=== PATIENT | female | born 1970 | race Caucasian/White ===

== ENCOUNTER 2020-05-08 15:53 | Outpatient (REF) | payer OTHER, BC, SELFPAY ==
--- NOTE | 2020-05-08 16:00 | XR_ITS ---
EXAMINATION: XR KNEE, RIGHT CLINICAL INFORMATION: Injury right knee. COMPARISON: None TECHNIQUE: Four views of the right knee. FINDINGS: There is minimal loss of medial compartment joint space. The lateral and patellofemoral compartment joint space is preserved. There is no visible acute fracture, dislocation or bony erosive changes. The soft tissues are normal. XR/XR knee RT 4V IMPRESSION: Suspect early mild degenerative changes medial compartment. No acute fracture, dislocation or abnormal joint effusion seen.
== END 2020-05-08 15:54 | disposition home or self-care (01) ==
LOC: HO.HMGCX 15:53
PROVIDERS: PCP Internal Medicine; Visit Provider Nurse Practitioner Family
DX: S89.90XA Unspecified injury of unspecified lower leg, initial encounter (principal)
CPT/HCPCS: 73564

== ENCOUNTER 2020-09-07 09:35 | Outpatient (REF) | payer BC, SELFPAY ==
[2020-09-07 12:15] LABS: TSH reflex Free T4 1.69 uIU/mL (0.32-4.0)
[2020-09-07 12:19] LABS: Alanine Aminotransferase 16 U/L (0-31); Albumin Level 3.9 g/dL (3.5-5.0); Alkaline Phosphatase 71 U/L (39-117); Anion Gap 11 (12-20); Aspartate Amino Transferase 14 U/L (5-31); Bilirubin Total 0.5 mg/dL (0.0-1.0); Blood Urea Nitrogen 16 mg/dL (9-16); Calcium 9.4 mg/dL (8.4-10.2); Carbon Dioxide 26 mmol/L (22-29); Chloride 105 mmol/L (96-108); Estimated Glomerular Filt Rate > 60; Glucose Random 91 mg/dL (60-115); Potassium 4.2 mmol/L (3.3-5.1); Sodium 138 mmol/L (135-145); Total Protein 6.9 g/dL (6.5-8.0)
== END 2020-09-07 09:36 | disposition home or self-care (01) ==
LOC: HO.HMGCLDS 09:35
PROVIDERS: PCP Internal Medicine; Visit Provider Internal Medicine
DX: E03.9 Hypothyroidism, unspecified (principal); E66.01 Morbid (severe) obesity due to excess calories; G44.89 Other headache syndrome; I10 Essential (primary) hypertension; Z91.09 Other allergy status, other than to drugs and biological substances
CPT/HCPCS: 36415; 80053; 84443

== ENCOUNTER 2020-10-03 11:52 | Outpatient (REF) | payer BC, SELFPAY ==
--- NOTE | ~2020-10-03 | MM_ITS ---
EXAMINATION: MM SCREENING DIGITAL BREAST TOMOSYNTHESIS, BILATERAL CLINICAL INFORMATION: Screening. Asymptomatic. The lifetime risk of breast cancer based on the Tyrer-Cuzick Model is 11.9%. COMPARISON: Mammography: June 13, 2019 and May 14, 2018 TECHNIQUE: Digital breast tomosynthesis is performed in both the craniocaudal and mediolateral oblique views along with computer-aided detection (CAD). Synthesized 2D images are generated from the tomosynthesis. FINDINGS: The breasts are almost entirely fatty (ACR BI-RADS breast composition Category a). There are no significant masses, abnormal calcifications, or other abnormalities. MM/MM tomosynthesis screening BI IMPRESSION: There are no significant changes from prior study. ASSESSMENT: BI-RADS 1: Negative RECOMMENDATION: Routine annual mammography screening. This patient's information was entered into a reminder system with a target due date for their next mammogram.
== END 2020-10-03 11:53 | disposition home or self-care (01) ==
LOC: HO.MAMMO 11:52
PROVIDERS: Visit Provider Internal Medicine
DX: Z12.31 Encounter for screening mammogram for malignant neoplasm of breast (principal)
CPT/HCPCS: 77063; 77067

== ENCOUNTER 2020-11-14 08:17 | Outpatient (REF) | payer BC, SELFPAY ==
--- NOTE | ~2020-11-14 | US_ITS ---
EXAMINATION: US ABDOMEN COMPLETE CLINICAL INFORMATION: Right upper quadrant pain. COMPARISON: None TECHNIQUE: Real-time imaging of the abdominal viscera. FINDINGS: PANCREAS: Normal. ABDOMINAL AORTA: The proximal, mid, and distal segments are normal in caliber. INFERIOR VENA CAVA: Visualized portions are normal. LIVER: The liver is normal in size. The liver contour is normal. There is increased liver echogenicity. No focal hepatic lesion. There is no intrahepatic biliary duct dilatation seen. GALLBLADDER: Surgically absent. COMMON BILE DUCT: Normal in caliber measuring 0.2 cm in diameter. RIGHT KIDNEY: Normal. No hydronephrosis. No renal calculi or focal parenchymal lesions. The kidney measures 11.0 cm in maximum dimension. LEFT KIDNEY: There are multiple echogenic foci without shadowing. No hydronephrosis. No renal calculi or focal parenchymal lesions. The kidney measures 11.2 cm in maximum dimension. SPLEEN: Normal. The spleen measures 10.3 cm in maximum dimension. FREE FLUID: None. US/US abdomen complete IMPRESSION: Hepatic steatosis without focal lesion seen. Multiple echogenic foci left kidney without shadowing. Question calcification. Rest of the abdominal ultrasound is unremarkable.
== END 2020-11-14 08:18 | disposition home or self-care (01) ==
LOC: HO.HMGCX 08:17
PROVIDERS: PCP Internal Medicine; Visit Provider Internal Medicine
DX: R10.11 Right upper quadrant pain (principal)
CPT/HCPCS: 76700

== ENCOUNTER 2020-12-10 11:36 | Outpatient (REF) | payer BC, SELFPAY | END 2020-12-10 11:37 | disposition home or self-care (01) | LOC: HO.LAB 11:36 | PROVIDERS: Visit Provider Nurse Practitioner Family | DX: Z20.822 Contact with and (suspected) exposure to COVID-19 (principal); J01.90 Acute sinusitis, unspecified | CPT/HCPCS: U0003; U0005 ==

== ENCOUNTER 2021-02-18 18:41 | Outpatient (REF) | payer BC, SELFPAY | END 2021-02-18 18:42 | disposition home or self-care (01) | LOC: HO.MRI 18:41 | PROVIDERS: PCP Internal Medicine; Visit Provider Nurse Practitioner Family | DX: Z13.89 Encounter for screening for other disorder (principal) ==

== ENCOUNTER 2021-04-25 16:57 | Outpatient (REF) | payer BC, SELFPAY ==
[2021-04-25 17:11] LABS: MANUAL DIFF FLAG NO
[2021-04-25 17:22] LABS: Basophils Absolute Auto 0.1 X10*3/uL (0.0-0.2); Basophils Percent Auto 0.4 % (0-2); Eosinophils Absolute Auto 0.4 X10*3/uL (0.0-0.4); Eosinophils Percent Auto 3.8 % (0-4); Hematocrit 38.9 % (37.0-47.0); Hemoglobin 13.1 g/dl (12.0-16.0); Imm Gran Abs Auto 0.03 X10*3/uL (0.00-0.03); Imm Gran Pct Auto 0.3 % (0.0-0.4); Lymphocytes Absolute Auto 4.3 X10*3/uL (1.2-4.9); Lymphocytes Percent Auto 38.1 % (20-40); Mean Corpuscular HGB Conc 33.7 g/dl (31.0-35.0); Mean Corpuscular Hemoglobin 31.3 pg (27.0-33.0); Mean Corpuscular Volume 92.8 fL (80.0-98.0); Mean Platelet Volume 9.9 fL (9.4-12.3); Monocytes Percent Auto 9.3 % (2-11); Neutrophils Absolute Auto 5.4 x10*3/uL (2.0-8.3); Neutrophils Percent Auto 48.1 % (45-73); Platelet Count 361 X10*3/uL (160-400); Red Blood Count 4.19 X10*6/uL (4.20-5.50); Red Cell Distribution Width 11.8 % (11.0-16.0); White Blood Count 11.2 X10*3/uL (4.8-10.8)
[2021-04-25 18:12] LABS: Alanine Aminotransferase 17 U/L (0-31); Albumin Level 3.9 g/dL (3.5-5.0); Alkaline Phosphatase 78 U/L (39-117); Anion Gap 12 (12-20); Aspartate Amino Transferase 15 U/L (5-31); Bilirubin Total < 0.2 mg/dL (0.0-1.0); Blood Urea Nitrogen 21 mg/dL (9-16); Calcium 9.6 mg/dL (8.4-10.2); Carbon Dioxide 28 mmol/L (22-29); Chloride 105 mmol/L (96-108); Estimated Glomerular Filt Rate > 60; Glucose Random 101 mg/dL (60-115); Potassium 3.9 mmol/L (3.3-5.1); Sodium 141 mmol/L (135-145)
[2021-04-25 18:25] LABS: TSH reflex Free T4 1.83 uIU/mL (0.32-4.0)
== END 2021-04-25 16:58 | disposition home or self-care (01) ==
LOC: HO.LAB 16:57
PROVIDERS: Visit Provider Internal Medicine
DX: Z00.01 Encounter for general adult medical examination with abnormal findings (principal); E03.9 Hypothyroidism, unspecified; I10 Essential (primary) hypertension; E66.01 Morbid (severe) obesity due to excess calories; Z91.09 Other allergy status, other than to drugs and biological substances
CPT/HCPCS: 36415; 80053; 84443; 85025

== ENCOUNTER 2021-07-09 12:27 | Outpatient (REF) | payer BC, SELFPAY ==
[2021-07-09 13:49] LABS: MANUAL DIFF FLAG NO
[2021-07-09 13:55] LABS: Basophils Percent Auto 0.3 % (0-2); Eosinophils Absolute Auto 0.2 X10*3/uL (0.0-0.4); Eosinophils Percent Auto 1.9 % (0-4); Hematocrit 38.6 % (37.0-47.0); Hemoglobin 12.7 g/dl (12.0-16.0); Imm Gran Abs Auto 0.03 X10*3/uL (0.00-0.03); Imm Gran Pct Auto 0.3 % (0.0-0.4); Lymphocytes Absolute Auto 3.2 X10*3/uL (1.2-4.9); Lymphocytes Percent Auto 31.1 % (20-40); Mean Corpuscular HGB Conc 32.9 g/dl (31.0-35.0); Mean Corpuscular Hemoglobin 30.8 pg (27.0-33.0); Mean Corpuscular Volume 93.5 fL (80.0-98.0); Mean Platelet Volume 10.6 fL (9.4-12.3); Monocytes Absolute Auto 0.9 X10*3/uL (0.1-1.2); Neutrophils Absolute Auto 5.9 x10*3/uL (2.0-8.3); Neutrophils Percent Auto 57.4 % (45-73); Platelet Count 378 X10*3/uL (160-400); Red Blood Count 4.13 X10*6/uL (4.20-5.50); Red Cell Distribution Width 12.2 % (11.0-16.0); White Blood Count 10.3 X10*3/uL (4.8-10.8)
[2021-07-09 14:25] LABS: Alanine Aminotransferase 15 U/L (0-31); Alkaline Phosphatase 70 U/L (39-117); Anion Gap 9 (12-20); Aspartate Amino Transferase 17 U/L (5-31); Bilirubin Total 0.3 mg/dL (0.0-1.0); Blood Urea Nitrogen 17 mg/dL (9-16); Calcium 9.6 mg/dL (8.4-10.2); Carbon Dioxide 29 mmol/L (22-29); Chloride 104 mmol/L (96-108); Estimated Glomerular Filt Rate > 60; Glucose Random 93 mg/dL (60-115); Potassium 4.2 mmol/L (3.3-5.1); Sodium 138 mmol/L (135-145)
[2021-07-09 14:41] LABS: TSH reflex Free T4 2.11 uIU/mL (0.32-4.0)
== END 2021-07-09 12:28 | disposition home or self-care (01) ==
LOC: HO.HMGCX 12:27
PROVIDERS: PCP Internal Medicine; Visit Provider Internal Medicine
DX: Z01.818 Encounter for other preprocedural examination (principal); M48.02 Spinal stenosis, cervical region; E03.9 Hypothyroidism, unspecified
CPT/HCPCS: 36415; 80053; 84443; 85025

== ENCOUNTER 2021-10-26 10:04 | Outpatient (REF) | payer BC, SELFPAY ==
--- NOTE | ~2021-10-26 | MM_ITS ---
EXAMINATION: MM SCREENING DIGITAL BREAST TOMOSYNTHESIS, BILATERAL CLINICAL INFORMATION: Screening. Asymptomatic. The lifetime risk of breast cancer based on the Tyrer-Cuzick Model is 11%. COMPARISON: Mammography: 10/03/2020, 06/13/2019, 05/14/2018, targeted right breast ultrasound 06/20/2019. TECHNIQUE: Digital breast tomosynthesis is performed in both the craniocaudal and mediolateral oblique views along with computer-aided detection (CAD). Synthesized 2D images are generated from the tomosynthesis. FINDINGS: There are scattered areas of fibroglandular density (ACR BI-RADS breast composition Category b). Breast tissue composition borders on fatty replaced. Background stromal and fibroglandular densities are stable. Small benign-appearing grouped fine nodularity mid 9:00 right breast is stable. There is no developing density or architectural abnormality. The axilla and skin contours are unremarkable. No significant changes. MM/MM tomosynthesis screening BI IMPRESSION: No significant changes from prior exams. ASSESSMENT: BI-RADS 2: Benign RECOMMENDATION: Routine annual mammography screening. This patient's information was entered into a reminder system with a target due date for their next mammogram.
== END 2021-10-26 10:05 | disposition home or self-care (01) ==
LOC: HO.MAMMO 10:04
PROVIDERS: PCP Internal Medicine; Visit Provider Obstetrics & Gynecology
DX: Z12.31 Encounter for screening mammogram for malignant neoplasm of breast (principal)
CPT/HCPCS: 77063; 77067

== ENCOUNTER 2021-11-19 10:15 | Outpatient (REF) | payer BC, SELFPAY ==
--- NOTE | ~2021-11-19 | XR_ITS ---
EXAMINATION: XR CHEST CLINICAL INFORMATION: J20.9 - Acute bronchitis, unspecified COMPARISON: Chest radiographs 07/11/2019, 06/10/2019 TECHNIQUE: 2 views of the chest were obtained. FINDINGS: The lungs are clear. No hyperinflation, airspace consolidation, or effusion. The heart is normal in size. Vascularity normal. Costophrenic sulci are well-defined. The hilar and mediastinal contours are unremarkable. There is plate and screws lower cervical spine from prior fusion. Degenerative changes again seen thoracic spine. XR/XR chest 2V IMPRESSION: Unremarkable examination.
== END 2021-11-19 10:16 | disposition home or self-care (01) ==
LOC: HO.XRAY 10:15
PROVIDERS: PCP Internal Medicine; Visit Provider Internal Medicine
DX: J20.9 Acute bronchitis, unspecified (principal)
CPT/HCPCS: 71046

== ENCOUNTER 2021-12-26 07:16 | Outpatient (REF) | payer BC, SELFPAY ==
[2021-12-26 07:37] LABS: MANUAL DIFF FLAG NO
[2021-12-26 07:51] LABS: Basophils Percent Auto 0.3 % (0-2); Eosinophils Absolute Auto 0.2 X10*3/uL (0.0-0.4); Eosinophils Percent Auto 2.4 % (0-4); Hematocrit 39.9 % (37.0-47.0); Imm Gran Abs Auto 0.03 X10*3/uL (0.00-0.03); Imm Gran Pct Auto 0.3 % (0.0-0.4); Lymphocytes Absolute Auto 2.6 X10*3/uL (1.2-4.9); Lymphocytes Percent Auto 27.5 % (20-40); Mean Corpuscular HGB Conc 32.6 g/dl (31.0-35.0); Mean Corpuscular Hemoglobin 30.2 pg (27.0-33.0); Mean Corpuscular Volume 92.8 fL (80.0-98.0); Mean Platelet Volume 9.8 fL (9.4-12.3); Monocytes Absolute Auto 0.8 X10*3/uL (0.1-1.2); Monocytes Percent Auto 8.5 % (2-11); Neutrophils Absolute Auto 5.8 x10*3/uL (2.0-8.3); Platelet Count 360 X10*3/uL (160-400); Red Cell Distribution Width 12.4 % (11.0-16.0); White Blood Count 9.5 X10*3/uL (4.8-10.8)
[2021-12-26 08:27] LABS: Alanine Aminotransferase 14 U/L (0-31); Albumin Level 3.9 g/dL (3.5-5.0); Alkaline Phosphatase 70 U/L (39-117); Anion Gap 12 (12-20); Aspartate Amino Transferase 16 U/L (5-31); Bilirubin Total 0.4 mg/dL (0.0-1.0); Blood Urea Nitrogen 14 mg/dL (9-16); Calcium 8.9 mg/dL (8.4-10.2); Carbon Dioxide 26 mmol/L (22-29); Chloride 104 mmol/L (96-108); Cholesterol 167 mg/dL; Estimated Glomerular Filt Rate > 60; Glucose Fasting 99 mg/dL (60-99); HDL Cholesterol 50 mg/dL; LDL Cholesterol Calculated 88 mg/dl; Potassium 4.3 mmol/L (3.3-5.1); Sodium 138 mmol/L (135-145); Total Protein 6.9 g/dL (6.5-8.0); Triglycerides 146 mg/dL
[2021-12-26 08:30] LABS: TSH reflex Free T4 2.22 uIU/mL (0.32-4.0)
== END 2021-12-26 07:17 | disposition home or self-care (01) ==
LOC: HO.LAB 07:16
PROVIDERS: PCP Internal Medicine; Visit Provider Internal Medicine
DX: Z00.01 Encounter for general adult medical examination with abnormal findings (principal); E66.01 Morbid (severe) obesity due to excess calories; G44.89 Other headache syndrome; I10 Essential (primary) hypertension; M25.562 Pain in left knee; R13.10 Dysphagia, unspecified; E03.9 Hypothyroidism, unspecified
CPT/HCPCS: 36415; 80053; 80061; 84443; 85025

== ENCOUNTER 2022-01-21 15:26 | Outpatient (REF) | payer BC, SELFPAY ==
--- NOTE | ~2022-01-21 | US_ITS ---
EXAMINATION: US THYROID CLINICAL INFORMATION: Dysphagia, unspecified. COMPARISON: None TECHNIQUE: Linear transducer grayscale and color Doppler examination with attention to the region of the thyroid. FINDINGS: SIZE: Measurements of the thyroid lobes and nodules are given in sagittal, anteroposterior and transverse dimensions respectively. Right Thyroid Lobe: 4.8 x 1.6 x 1.7 cm, volume 6.8 mL. Parenchyma: The gland echotexture is homogeneous. Thyroid vascularity is normal. Left Thyroid Lobe: 4.1 x 1.0 x 1.6 cm, volume 3.4 mL. Parenchyma: The gland echotexture is homogeneous. Thyroid vascularity is normal. Isthmus: 0.3 cm in maximum AP dimension. Estimated total number of nodules greater than or equal to 1 cm: 3. [employer] Export Log[employer] Manager nodules are described as follows: 1. Location: Right mid. Size: 1.0 x 1.0 x 0.9 cm, volume 0.52 mL. Nodule characteristics: Composition: Solid (2). Echogenicity: Very hypoechoic (3). Shape: Taller than wide (3). Margins: Ill-defined (0). Echogenic Foci: None (0). ACR TI-RADS total points: 8 ACR TI-RADS category: 5 2. Location: Right inferior isthmus. Size: 0.7 x 0.6 x 0.7 cm, volume 0.16 mL. Nodule characteristics: Composition: Solid (2). Echogenicity: Very hypoechoic (3). Shape: Not taller than wide (0). Margins: Ill-defined (0). Echogenic Foci: None (0). ACR TI-RADS total points: 5 ACR TI-RADS category: 4 3. Location: Right posterior inferior. It is uncertain this represents an exophytic nodule could represent a parathyroid adenoma. Size: 2.1 x 1.2 x 1.1 cm, volume 1.44 mL. Nodule characteristics: Composition: Solid (2). Echogenicity: Hypoechoic (2). Shape: Taller than wide (3). Margins: Irregular (2). Echogenic Foci: None (0). ACR TI-RADS total points: 9 ACR TI-RADS category: 5 4. Location: Left medial/isthmus. Size: 1.0 x 0.5 x 0.7 cm, volume 0.19 mL. Nodule characteristics: Composition: Solid (2). Echogenicity: Hypoechoic (2). Shape: Not taller than wide (0). Margins: Ill-defined (0). Echogenic Foci: None (0). ACR TI-RADS total points: 4 ACR TI-RADS category: 4 NODES: There are bilateral enlarged lymph nodes, level 3 on the right measuring 2.7 x 0.8 x 1.3 cm, and level 4 on the left measuring 2 x 0.6 x 1.5 cm and 2.3 x 0.6 x 1.1 cm. US/US thyroid IMPRESSION: Bilateral thyroid nodules. Most suspicious nodule is a nodule exophytic to the posterior inferior right lobe. It is uncertain whether this represents a thyroid nodule or parathyroid adenoma. Bilateral slightly enlarged cervical lymph nodes. ACR TI-RADS RECOMMENDATION REFERENCE: Ultrasound-guided fine-needle aspiration, followup ultrasound, no further follow up. * TR1 (0 point) and TR 2 (2 points): No FNA or follow up * TR3 (3 points): FNA if more than or equal to 2.5 cm in maximum dimension, followup ultrasound in 1, 3 and 5 years if 1.5 to 2.4 cm in maximum dimension. * TR4 (4-6 points): FNA if more than or equal to 1.5 cm in maximum dimension, followup ultrasound in 1, 2, 3 and 5 years if 1 to 1.4 cm in maximum dimension. * TR5 (more than or equal to 7 points): FNA if more than or equal to 1 cm in maximum dimension, followup ultrasound every year for 5 years if 0.5 to 0.9 cm in maximum dimension. * TR3, TR4 or TR5 nodules that are below the size threshold for follow up receive no follow up.
== END 2022-01-21 15:27 | disposition home or self-care (01) ==
LOC: HO.HMGCX 15:26
PROVIDERS: PCP Internal Medicine; Visit Provider Internal Medicine
DX: E03.9 Hypothyroidism, unspecified (principal); R13.10 Dysphagia, unspecified; Z80.8 Family history of malignant neoplasm of other organs or systems
CPT/HCPCS: 76536

== ENCOUNTER 2022-02-11 08:04 | Outpatient (REF) | payer BC, SELFPAY ==
[2022-02-11 11:06] LABS: Albumin Level 3.9 g/dL (3.5-5.0); Estimated Glomerular Filt Rate > 60; Phosphorus 3.5 mg/dL (2.7-4.5)
[2022-02-11 11:31] LABS: Free T4 (Free Thyroxine) 1.17 ng/dL (0.71-1.85); Thyroid Stimulating Hormone 2.56 uIU/mL (0.32-4.0); Vitamin D 25-OH Total 37.7 ng/mL (>30)
[2022-02-12 12:42] LABS: Calcium (PTHI) 9.3 mg/dL (8.6-10.2); PTHI 28 pg/mL (16-77)
[2022-02-13 02:07] LABS: Thyroglobulin Antibodies <1 IU/mL (< or = 1); Thyroid Peroxidase Antibodies 7 IU/mL (<9)
== END 2022-02-11 08:05 | disposition home or self-care (01) ==
LOC: HO.10HDL 08:04
PROVIDERS: Visit Provider Internal Medicine
DX: E04.2 Nontoxic multinodular goiter (principal); E55.9 Vitamin D deficiency, unspecified
CPT/HCPCS: 36415; 82040; 82306; 82565; 83970; 84100; 84439; 84443; 86376; 86800

== ENCOUNTER 2022-02-26 16:16 | Outpatient (REF) | payer BC, SELFPAY ==
--- NOTE | ~2022-02-26 | CT_ITS ---
EXAMINATION: CT SOFT TISSUE NECK WITHOUT CONTRAST CLINICAL INFORMATION: Nontoxic multinodular goiter. COMPARISON: Thyroid ultrasound 01/21/2022. TECHNIQUE: Helical imaging was performed in the axial plane with generation of coronal and sagittal reformatted images. This CT examination was performed using dose optimization techniques as appropriate, variously including the following: *Automated exposure control *Adjustment of mA and/or kV according to patient size (this includes techniques or standardized protocols for targeted exams where dose is matched to indication/reason for exam; i.e. extremities or head) *Use of iterative reconstruction technique DLP: 400 mGy-cm FINDINGS: Thyroid tissue is relatively atrophic. There are a few asymmetrically enlarged right level III cervical lymph nodes best illustrated on axial image 74 of 131 series 2, the largest of which measures 1.3 cm in maximal transaxial dimension. Otherwise no pathologically enlarged cervical lymph nodes. No mediastinal or axillary adenopathy is visualized within the [id number] of this examination. Pharyngeal mucosal spaces are symmetric. Parapharyngeal and retromaxillary fat is preserved. Counter Intelligence Technician spaces are symmetric. The parotid and submandibular glands are normal. The tongue base and epiglottis are normal. Preepiglottic fat is preserved. Glottic and subglottic airways are patent. Lung apices are clear. There is no acute osseous finding. Specifically no worrisome lytic or blastic osseous lesion. There chronic postoperative changes of an anterior cervical discectomy and fusion with plate and screw hardware extending from C5 to C7. Grossly no evidence of hardware loosening or failure. The skull base is grossly intact. No mastoid middle ear effusion. No active paranasal sinus disease. Limited visualization of the intracranial anatomy reveals no abnormal finding. CT/CT soft tissue neck wo IV con IMPRESSION: There are a few pathologically enlarged right level III cervical lymph nodes, the largest of which measures 1.3 cm in maximal transaxial dimension. Otherwise no worrisome soft tissue mass or adenopathy is visualized elsewhere within the [id number] of this examination. Thyroid tissue is relatively atrophic.
== END 2022-02-26 16:17 | disposition home or self-care (01) ==
LOC: HO.CT 16:16
PROVIDERS: PCP Internal Medicine; Visit Provider Internal Medicine
DX: E04.2 Nontoxic multinodular goiter (principal)
CPT/HCPCS: 70490

== ENCOUNTER 2022-05-08 09:43 | Outpatient (REF) | payer BC, SELFPAY ==
--- NOTE | 2022-05-08 10:21 | PM.OP ---
Brief Operative Note Date of Service: 05/08/22 Pre-op diagnosis: Goiter Procedure: EXAMINATION: US THYROID CLINICAL INFORMATION: Multinodular Thyroid COMPARISON: Prior TECHNIQUE: Linear transducer madden-scale and color Doppler examination with attention to the region of the thyroid. FINDINGS: SIZE: Measurements of the thyroid lobes and nodules are given in sagittal, anteroposterior and transverse dimensions respectively. Right Thyroid Lobe: 1.5 x 4.7 x 1.6 cm, volume 5.9 mL. Parenchyma: The gland echotexture is diffusely heterogenous. Thyroid vascularity is normal. Left Thyroid Lobe: 1.3 x 3.1 x 1.2 cm, volume 2.5 mL. Parenchyma: The gland echotexture is diffusely heterogenous. Thyroid vascularity is normal. Isthmus: 0.4 cm in maximum AP dimension. There are no true nodules visualized, only pseudonodules. NODES: There are scattered bilateral prominent lymph nodes, none pathologic appearing. IMPRESSION: Consistent with Vy's disease. Will repeat in 1 years time for surveillance. I did advise her to contact me with any change in symptoms such as dysphagia, hoarseness of her voice or lumps and bumps. Surgeon: Swapna Jaeger, DO Was an Fuel House Attendant used for this Procedure?: No Estimated blood loss (mL): 0
== END 2022-05-08 09:44 | disposition home or self-care (01) ==
LOC: HO.US 09:43
PROVIDERS: Visit Provider Internal Medicine
DX: E04.2 Nontoxic multinodular goiter (principal)
CPT/HCPCS: 76536

== ENCOUNTER 2022-09-26 12:09 | Outpatient (REF) | payer BC, SELFPAY ==
[2022-09-26 13:48] LABS: MANUAL DIFF FLAG NO
[2022-09-26 14:03] LABS: Basophils Percent Auto 0.5 % (0-2); Eosinophils Absolute Auto 0.2 X10*3/uL (0.0-0.4); Eosinophils Percent Auto 2.4 % (0-4); Imm Gran Abs Auto 0.01 X10*3/uL (0.00-0.03); Imm Gran Pct Auto 0.1 % (0.0-0.4); Lymphocytes Absolute Auto 3.3 X10*3/uL (1.2-4.9); Lymphocytes Percent Auto 37.6 % (20-40); Mean Corpuscular HGB Conc 33.3 g/dl (31.0-35.0); Mean Corpuscular Volume 92.9 fL (80.0-98.0); Mean Platelet Volume 10.4 fL (9.4-12.3); Monocytes Absolute Auto 0.8 X10*3/uL (0.1-1.2); Monocytes Percent Auto 8.4 % (2-11); Neutrophils Absolute Auto 4.5 x10*3/uL (2.0-8.3); Platelet Count 364 X10*3/uL (160-400); Red Cell Distribution Width 12.2 % (11.0-16.0); White Blood Count 8.9 X10*3/uL (4.8-10.8)
[2022-09-26 14:22] LABS: Alanine Aminotransferase 16 U/L (0-31); Albumin Level 3.9 g/dL (3.5-5.0); Alkaline Phosphatase 70 U/L (39-117); Anion Gap 10 (12-20); Aspartate Amino Transferase 15 U/L (5-31); Bilirubin Total 0.3 mg/dL (0.0-1.0); Blood Urea Nitrogen 17 mg/dL (9-16); Calcium 9.2 mg/dL (8.4-10.2); Carbon Dioxide 26 mmol/L (22-29); Chloride 106 mmol/L (96-108); Estimated Glomerular Filt Rate > 60; Glucose Random 99 mg/dL (60-115); Potassium 4.3 mmol/L (3.3-5.1); Sodium 138 mmol/L (135-145); Total Protein 6.6 g/dL (6.5-8.0)
[2022-09-26 14:41] LABS: TSH reflex Free T4 2.11 uIU/mL (0.32-4.0)
== END 2022-09-26 12:10 | disposition home or self-care (01) ==
LOC: HO.HMGCLDS 12:09
PROVIDERS: PCP Internal Medicine; Visit Provider Internal Medicine
DX: E03.9 Hypothyroidism, unspecified (principal); E66.09 Other obesity due to excess calories; G44.89 Other headache syndrome; I10 Essential (primary) hypertension; Z91.09 Other allergy status, other than to drugs and biological substances
CPT/HCPCS: 36415; 80053; 84443; 85025

== ENCOUNTER 2022-12-31 15:23 | Outpatient (AMB) | payer BC, SELFPAY ==
[2022-12-31 15:25] VITALS: BP 118/76; PULSE 69; O2SAT 96; BMI 42.5
--- NOTE | 2022-12-31 15:25 | MHC.PC.OV ---
Vital Signs 12/31/22 15:25 Height 5 ft 3 in Weight 240 lb 2 oz BMI 42.5 BP 118/76 Blood Pressure Location Rt brachial Position Sitting Pulse 69 Pulse Source Pulse Oximeter Pulse Oximetry (%) 96 Oxygen Delivery Method Room Air Intake Visit Reasons: PE annual Allergies environmental allergies Allergy (Unknown, Uncoded 08/04/22 12:49) unknown From Cymbalta Allergy (Unknown, Uncoded 08/04/22 12:49) RASH tress, pollen,mold, dust,pet d Allergy (Unknown, Uncoded 08/04/22 12:49) Unknown Medication List - Last Reconciled 12/31/22 by Kerri Otto MD albuterol sulfate 2.5 mg (3 mL) inhalation QID 30 days albuterol sulfate 5 mg inhalation Q4H PRN albuterol sulfate 90 mcg/actuation (ProAir HFA) 1 inh inhalation QID PRN 30 days atenolol 50 mg PO DAILY 90 days levothyroxine 50 mcg PO DAILY 90 days montelukast 10 mg PO DAILY 90 days sumatriptan succinate 25 mg PO ONCE PRN 90 days Tobacco use date assessed: 12/31/22 Dental Screening Dental Screen Date: 12/31/22 Did you have a dental problem in the last 6 months where you did not have access to dental care?: No Was dental information given to patient?: No HPI PE annual HPI Details Patient is 52-year-old female came in for physical examination She had a CT scan of soft tissue neck end of last year which showed pathologically enlarged lymph nodes She was evaluated by Endocrinology after that but then endocrinology moved and 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 Patient continued to have pressure-like sensation in her throat and having difficulty swallowing I have ordered a repeat CT scan to follow-up on that. She is complaining of feeling chest pressure over non we did the EKG today. Which showed normal sinus rhythm no acute findings Patient does have a history of hiatal hernia and she is taking no PPI. Patient says that she does not want to take any but she will take Tums if needed. Blood pressure is stable patient is taking all her medication She is due for colonoscopy referral placed Patient also have changing moles and would like to see a [facility]. Mammogram appointment is coming come in April Pap smear is through [facility] Medical History Hypothyroidism Multinodular thyroid Vitamin D deficiency Surgical History Hx of cervical discectomy Hx of section Hx of cholecystectomy Hx of umbilical hernia repair Family History Mother Hypertension Father Hypertension High cholesterol Sister Thyroid cancer Social History Housing: House Alcohol intake: current Alcohol intake frequency: holidays/special occasions only Patient Tobacco Use Status: Never used Tobacco e-Cigarette/Vaping Use: Never Used Second Hand Smoke Exposure: No service: No Current occupational status: employed Cognitive needs: No Hearing needs: No Vision needs: Yes Questionnaire PHQ-9 Over the last 2 weeks, how often have you been bothered by any of the following problems? 1. Little interest or pleasure in doing things: not at all 2. Feeling down, depressed, or hopeless: not at all 3. Trouble falling or staying asleep, or sleeping too much: more than half the days 4. Feeling tired or having little energy: more than half the days 5. Poor appetite or overeating: not at all 6. Feeling bad about yourself - or that you are a failure or have let yourself or your family down: not at all 7. Trouble concentrating on things, such as reading the newspaper or watching television: not at all 8. Moving or speaking so slowly that other people could have noticed. Or the opposite - being so fidgety or restless that you have been moving around a lot more than usual: not at all 9. Thoughts that you would be better off or of hurting yourself in some way: not at all Total score: 4 Depression Screening Interpretation: Negative 21632 - PHQ-9 Billing: Yes Source: Developed by Drs. Don Moncada, Shalini Gutierrez, Hamlet Gordillo and colleagues, with an educational pratibha from [employer]. Thrive Questionnaire Date Thrive assessed: 05/27/22 AUDIT C Alcohol Use Questionnaire (AUDIT-C) 1. How often do you have a drink containing alcohol?: Monthly or less 2. How many drinks containing alcohol do you have on a typical day when you are drinking?: 1 or 2 3. How often do you have six or more drinks on one occasion?: Never Total Score: 1 Score Reviewed/Action Taken: Yes NALDO-7 AMB Questionnaire NALDO-7 Date NALDO - 7 assessed: 05/27/22 Source: Developed by Drs. Don Moncada, Shalini Gutierrez, Hamlet Gordillo and colleagues, with an educational pratibha from [employer]. Review of Systems Const Denies chills, Denies fever(s) and Denies headache(s) Eyes Denies blurry vision ENT Denies headache(s), Denies nasal discharge, Denies nasal obstruction, Denies odynophagia and Denies sinus pain Resp Denies cough and Denies hemoptysis GI Denies diarrhea, Denies odynophagia, Denies vomiting and Denies hematemesis Reports as per HPI Musc Denies abnormal gait Skin/Breast Reports as per HPI Neuro Denies Neuro-related abnormal movements, Denies Abnormal speech present, Denies abnormal gait, Denies headache(s) and Denies Sensory deficit (Neuro) Psych Denies mood swings and Denies paranoia Endo Reports as per HPI Dany/Lymph Reports as per HPI Aller/Immun Reports as per HPI Physical exam (Primary Care) Vital Signs: Last Vital Signs Pulse 69 12/31/22 15:25 BP 118/76 12/31/22 15:25 Pulse Ox 96 12/31/22 15:25 Oxygen Delivery Method Room Air 12/31/22 15:25 BMI result Body Mass Index 42.5 Tobacco/Smoking Status: Tobacco use Status Tobacco use date assessed 12/31/22 12/31/22 15:27 Patient Tobacco Use Status Never used Tobacco 12/31/22 15:27 e-Cigarette/Vaping Use Never Used 12/31/22 15:27 Depression Screening Interpretation: Negative Thrive Assessment: Date of Thrive Assessment Date Thrive assessed 05/27/22 12/31/22 15:27 Const General: cooperative, comfortable and no acute distress Orientation/consciousness: patient oriented x3 HENMT Head: Yes normocephalic and Yes atraumatic Eyes General: appearance normal, both eyes and all related structures Pupils: Equal, round and reactive pupils present EOM: EOMs intact bilaterally Neck Neck: Yes supple and No lymphadenopathy Thyroid: Thyroid normal Lymphatic: no lymphadenopathy noted Resp Effort & Inspection: normal respiratory effort and able to speak in complete sentences Auscultation: clear to auscultation bilaterally Cardio Heart sounds: S1 normal heart sound present and S2 normal heart sound present GI Palpation (GI): Soft to palpation and nontender Auscultation: normal bowel sounds General: Yes no CVA tenderness Back/Spine/Pelvis Back: no CVA tenderness Skin General skin exam: elasticity normal and turgor normal Neuro General: patient oriented x3 and gait normal Cranial nerves: Yes Equal, round and reactive pupils present Speech: No Abnormal speech present Sensory Exam: No Sensory deficit (Neuro) Coordination: tandem gait normal and Romberg test negative Extrem General: Yes normal exam except as noted and No edema Office Procedures EKG [id number], Complete Assessment and Plan Assessment & Plan (1) Encounter for general adult medical examination with abnormal findings: Code(s): Z00.01 - Encounter for general adult medical examination with abnormal findings (2) Chest pain: Code(s): R07.9 - Chest pain, unspecified (3) Cervical lymphadenopathy: Code(s): R59.0 - Localized enlarged lymph nodes (4) Change in mole: Code(s): D22.9 - Melanocytic nevi, unspecified (5) Colon cancer screening: Code(s): Z12.11 - Encounter for screening for malignant neoplasm of colon (6) Obesity due to excess calories: Code(s): E66.09 - Other obesity due to excess calories (7) Hypothyroidism: Code(s): E03.9 - Hypothyroidism, unspecified (8) Hypertension, essential: Code(s): I10 - Essential (primary) hypertension (9) Headache syndrome: Code(s): G44.89 - Other headache syndrome (10) Hiatal hernia: Code(s): K44.9 - Diaphragmatic hernia without obstruction or gangrene Plan Patient is 52-year-old female came in for physical examination She had a CT scan of soft tissue neck end of last year which showed pathologically enlarged lymph nodes She was evaluated by Endocrinology after that but then endocrinology moved and 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 Patient continued to have pressure-like sensation in her throat and having difficulty swallowing I have ordered a repeat CT scan to follow-up on that. She is complaining of feeling chest pressure over non we did the EKG today. Which showed normal sinus rhythm no acute findings Patient does have a history of hiatal hernia and she is taking no PPI. Patient says that she does not want to take any but she will take Tums if needed. Blood pressure is stable patient is taking all her medication She is due for colonoscopy referral placed Patient also have changing moles and would like to see a [facility]. Mammogram appointment is coming come in April Pap smear is through [facility] Follow-up 4 months labs to be done before next visit fasting Orders: Orders Comprehensive [place]. Panel Fast Today E03.9 - Hypothyroidism, unspecified, E66.01 - Morbid (severe) obesity due to excess calories, E66.09 - Other obesity due to excess calories, G44.89 - Other headache syndrome, I10 - Essential (primary) hypertension Lipid Panel Today E03.9 - Hypothyroidism, unspecified, E66.01 - Morbid (severe) obesity due to excess calories, E66.09 - Other obesity due to excess calories, G44.89 - Other headache syndrome, I10 - Essential (primary) hypertension TSH reflex Free T4 Today E03.9 - Hypothyroidism, unspecified, E66.01 - Morbid (severe) obesity due to excess calories, E66.09 - Other obesity due to excess calories, G44.89 - Other headache syndrome, I10 - Essential (primary) hypertension Complete Blood Count Auto Diff Today E03.9 - Hypothyroidism, unspecified, E66.01 - Morbid (severe) obesity due to excess calories, E66.09 - Other obesity due to excess calories, G44.89 - Other headache syndrome, I10 - Essential (primary) hypertension CT soft tissue neck wo IV con Today R59.0 - Localized enlarged lymph nodes AMB EKG-In Office Today R07.9 - Chest pain, unspecified Referrals Dermatology Referral D22.9 - Melanocytic nevi, unspecified Gastroenterology Referral Z12.11 - Encounter for screening for malignant neoplasm of colon Medications: Refilled sumatriptan succinate 25 mg PO ONCE 90 days PRN 45 tabs 0RF migraine headache G44.89 - Other headache syndrome montelukast 10 mg PO DAILY 90 days 90 tabs 1RF levothyroxine 50 mcg PO DAILY 90 days 90 tabs 1RF E03.9 - Hypothyroidism, unspecified atenolol 50 mg PO DAILY 90 days 90 tabs 1RF I10 - Essential (primary) hypertension albuterol sulfate 90 mcg/actuation (ProAir HFA) 1 inh inhalation QID 30 days PRN 18 grams 0RF shortness of breath or wheezing Coding Level of Care Code Est Pt Prev Care 40-64y(78590) Diagnoses Encounter for general adult medical examination with abnormal findings Z00.01 Chest pain R07.9 Cervical lymphadenopathy R59.0 Change in mole D22.9 Colon cancer screening Z12.11 Obesity due to excess calories E66.09 Hypothyroidism E03.9 Hypertension, essential I10 Headache syndrome G44.89 Hiatal hernia K44.9 CPT Codes EKG - CPT: [id number]-[id number], Complete ([id number])
== END 2022-12-31 16:07 | disposition home or self-care (01) ==
PROVIDERS: Visit Provider Internal Medicine
DX: Z00.01 Encounter for general adult medical examination with abnormal findings (principal); E03.9 Hypothyroidism, unspecified; I10 Essential (primary) hypertension; R07.9 Chest pain, unspecified; R59.0 Localized enlarged lymph nodes; D22.9 Melanocytic nevi, unspecified; E66.09 Other obesity due to excess calories; G44.89 Other headache syndrome; K44.9 Diaphragmatic hernia without obstruction or gangrene
CPT/HCPCS: 93000; 99396

== ENCOUNTER 2023-01-24 10:27 | Outpatient (REF) | payer BC, SELFPAY | END 2023-01-24 10:28 | disposition home or self-care (01) | LOC: HO.MAMMO 10:27 | PROVIDERS: Absent Provider Obstetrics & Gynecology; PCP Internal Medicine; Visit Provider Internal Medicine | DX: Z12.31 Encounter for screening mammogram for malignant neoplasm of breast (principal) | CPT/HCPCS: 77063; 77067 ==

== ENCOUNTER → 2023-01-24 10:30 | Outpatient (BNV) | payer BC, SELFPAY | PROVIDERS: Absent Provider Obstetrics & Gynecology; PCP Internal Medicine; Visit Provider Radiology Diagnostic Radiology | DX: Z12.31 Encounter for screening mammogram for malignant neoplasm of breast (principal) | CPT/HCPCS: 77063; 77067 ==

== ENCOUNTER 2023-01-28 07:39 | Outpatient (REF) | payer BC, SELFPAY ==
--- NOTE | ~2023-01-28 | CT_ITS ---
EXAMINATION: CT SOFT TISSUE NECK WITHOUT CONTRAST CLINICAL INFORMATION: Prior CT scan of the neck showed enlarged cervical lymph nodes. Follow-up. COMPARISON: CT scan of the neck 02/26/2022. TECHNIQUE: Helical imaging was performed in the axial plane with generation of coronal and sagittal reformatted images. This CT examination was performed using dose optimization techniques as appropriate, variously including the following: *Automated exposure control *Adjustment of mA and/or kV according to patient size (this includes techniques or standardized protocols for targeted exams where dose is matched to indication/reason for exam; i.e. extremities or head) *Use of iterative reconstruction technique DLP: 439 mGy-cm FINDINGS: The study redemonstrates mildly prominent lymph nodes at multiple levels in the neck bilaterally. The largest is redemonstrated in the right level III region (image 74/134, series 2), and measures 1.3 cm, similar compared to prior imaging. The parotid glands are homogeneous in attenuation. The submandibular glands are normal. No contour abnormality is seen within the oral cavity or pharyngeal mucosal space. The laryngeal structures are normal. The parapharyngeal fat is preserved. No extra mucosal soft tissue mass or fluid collection is seen. No retropharyngeal fluid collection is seen. The thyroid gland is relatively atrophic. The superior mediastinum is unremarkable. The lung apices are clear. The mastoid air cells are well-aerated. There is mild opacification of the hypoplastic right maxillary sinus. The temporomandibular joints are normal. No periapical disease is identified. There are small exostoses along the buccal posterior maxillae bilaterally. The study redemonstrates the sequelae of ACDF at C5, C6 and C7 with anterior plate and screws and interbody devices. There is lucency around the left C5 vertebral body screw, which may be consistent with loosening. This is a new finding compared to the prior study. The other hardware appears intact. There is multilevel facet arthropathy in the mid and upper left cervical spine. There is bilateral foraminal narrowing from uncovertebral osteophytes at C5-C6 and C6-C7. There are no acute fractures or subluxations. The imaged portions of the brain parenchyma are unremarkable. CT/CT soft tissue neck wo IV con IMPRESSION: 1. The study redemonstrates mildly prominent lymph nodes at multiple levels in the neck bilaterally. The largest is redemonstrated in the right level III region, and measures 1.3, and appears stable 2. The study redemonstrates the sequelae of ACDF at C5, C6 and C7. There is lucency around the left C5 vertebral body screw, which may be consistent with loosening. This is a new finding compared to the prior study.
== END 2023-01-28 07:40 | disposition home or self-care (01) ==
LOC: HO.CT 07:39
PROVIDERS: PCP Internal Medicine; Visit Provider Internal Medicine
DX: R59.0 Localized enlarged lymph nodes (principal)
CPT/HCPCS: 70490

== ENCOUNTER 2023-03-02 07:47 | Outpatient (AMB) | payer BC, SELFPAY ==
--- NOTE | 2023-03-02 08:15 | A.OFFVIS_ITS ---
Intake Vital Signs 03/02/23 08:18 Height 5 ft 2 in Weight 237 lb BMI 43.3 BP 141/66 H Blood Pressure Location Rt brachial Position Sitting Pulse 64 Intake Visit Reasons: Colonoscopy Screening Intake Note: Patient 1st pre colonoscopy screening Patient denies any GI issues. Scorekeeper Required: No Accompanied by: Self / Same As Patient Allergies environmental allergies Allergy (Unknown, Uncoded 08/04/22 12:49) unknown From Cymbalta Allergy (Unknown, Uncoded 08/04/22 12:49) RASH tress, pollen,mold, dust,pet d Allergy (Unknown, Uncoded 08/04/22 12:49) Unknown HPI Colonoscopy Screening HPI Details 52 year old? female here today for pre c olonoscopy screening.? Patient was sent to us by her PCP.? This is her first colonoscopy screening.? Patient denies any gastrointestinal symptoms in the past or at present.? Denies any personal or family history of gastrointestinal disease, colon polyps, or cancer.? Patient had trouble with anesthesia in the past. Patient states that she had hypoxemia and hypotension after anesthesia. Patient was diagnosed with mild sleep apnea. Not using any CPAP machine.? Denies any history of cardiac, renal, pulmonary, or hepatic disease.?? However patient does report history of asthma and frequent sinus infections. Upper respiratory infections that include pneumonia. No history of infectious?diseases like hepatitis A, B, C, HIV or tuberculosis.? Patient is not on any anticoagulation therapy daily, however patient does report that occasionally she will take low-dose aspirin. [facility] Medical History Hypothyroidism Multinodular thyroid Vitamin D deficiency Surgical History Hx of cervical discectomy Hx of umbilical hernia repair Hx of cholecystectomy Hx of section Family History Mother Hypertension Father Hypertension High cholesterol Sister Thyroid cancer Social History Housing: House Alcohol intake: current Alcohol intake frequency: holidays/special occasions only Patient Tobacco Use Status: Never used Tobacco e-Cigarette/Vaping Use: Never Used Second Hand Smoke Exposure: No service: No Current occupational status: employed Cognitive needs: No Hearing needs: No Vision needs: Yes Review of Systems Const Denies weight gain and Denies weight loss ENT Reports no additional complaints, Denies dysphagia and Denies odynophagia Card Reports no additional complaints Resp Reports no additional complaints GI Denies abdominal pain, Denies belching, Denies melena, Denies bloating, Denies change in bowel habits, Denies dysphagia, Denies excessive flatus, Denies dyspepsia, Denies heartburn, Denies diarrhea, Denies loose stools, Denies nausea, Denies odynophagia and Denies vomiting Reports no additional complaints Musc Reports no additional complaints Neuro Reports no additional complaints Psych Reports no additional complaints Endo Reports no additional complaints Physical Exam Const General: healthy appearing, no acute distress and well developed Nutritional Appearance: obese Orientation/consciousness: patient oriented x3 HEENT Head: Yes normal to inspection, Yes normocephalic and Yes atraumatic Face and sinus: Yes normal facial exam Mouth: Normal oral and palatal mucosa present Throat: Yes posterior oropharynx normal, Yes tonsils normal and Yes uvula midline Eyes General: appearance normal, both eyes and all related structures Neck Neck: Yes normal visual inspection, Yes full ROM and Yes trachea midline Thyroid: Thyroid normal Resp Effort & Inspection: normal respiratory effort, able to speak in complete sentences, no tracheal deviation and symmetric chest movement Auscultation: clear to auscultation bilaterally Cardio Rate: regular rate Heart sounds: S1 normal heart sound present and S2 normal heart sound present GI Inspection: Yes normal to inspection, No distended and Yes obesity Palpation (GI): Soft to palpation, not firm, nontender and No hepatosplenomegaly present Auscultation: normal bowel sounds General: Yes no CVA tenderness Back/Spine/Pelvis Back: no CVA tenderness Skin General skin exam: elasticity normal, turgor normal and dry skin Neuro General: patient oriented x3 Psych Appearance: grossly normal Mental Status: mental status grossly normal Speech and movement: Normal speech and movement present Assessment & Plan Assessment & Plan (1) Colon cancer screening: Code(s): Z12.11 - Encounter for screening for malignant neoplasm of colon Plan: Patient denies any GI, cardiac or respiratory symptoms.? Patient reports hypoxia of her spinal tap many years ago and hypotension after cervical surgery. Diagnosed with mild sleep apnea not using CPAP. Patient has a history of asthma.? ? No history infectious diseases in the past or present.? Not on any an ticoagulation therapy, however occasionally uses low dose aspirin.? No family or personal history of colon cancer or polyps.? Patient denies melena, hematochezia, unintentional weight loss or ribbon like stools.? Discussed at length the pre-procedure,? prep, diet & medications as well as what to expect prior, during and after the procedure.?? Stressed the importance of good bowel prep. ?Recommended the use of Vaseline or Calmoseptine OTC & baby wipes with bowel movements to promote comfort.? ?Patient verbalizes understanding and agrees to plan of care.? She was given the opportunity to ask questions and all questions answered.? We will see her after the procedure.? Medications: New bisacodyl (Dulcolax (bisacodyl)) take 4 tabs at noon the day before your colonoscopy 20 mg (4 x 5 mg) PO ONCE 1 day 4 tabs 0RF Z12.11 - Encounter for screening for malignant neoplasm of colon polyethylene glycol 3350 (Miralax) As directed by gastroenterology department at [facility] 238 grams PO ONCE 238 grams 0RF Z12.11 - Encounter for screening for malignant neoplasm of colon docusate sodium 100 mg PO BEDTIME 30 caps 3RF K59.00 - Constipation, unspecified Coding Level of Care Code New Pt Level 3 (40343) Diagnoses Colon cancer screening Z12.11 Time Spent (min) 40 Comment 30 minutes spent with patient and additional 10 minutes spent reviewing her records.
[2023-03-02 08:18] VITALS: BP 141/66; PULSE 64; BMI 43.3
== END 2023-03-02 09:01 | disposition home or self-care (01) ==
PROVIDERS: PCP Internal Medicine; Visit Provider Nurse Practitioner Family
DX: Z01.818 Encounter for other preprocedural examination (principal); Z12.11 Encounter for screening for malignant neoplasm of colon
CPT/HCPCS: S0285

== ENCOUNTER → 2023-03-02 07:47 | Outpatient (BNVA) | payer BC, SELFPAY | PROVIDERS: PCP Internal Medicine; Visit Provider Nurse Practitioner Family ==

== ENCOUNTER 2023-04-13 08:35 | Outpatient (AMB) | payer BC, SELFPAY ==
--- NOTE | 2023-04-13 09:52 | MHC.OFFWIV ---
Intake Vital Signs 04/13/23 09:53 Height 5 ft 2 in Weight 237 lb BMI 43.3 BP 146/82 H Blood Pressure Location Lt brachial Position Sitting Pulse 71 Pulse Source Pulse Oximeter Temp 97.8 F Temp Source Temporal Artery Scan Pulse Oximetry (%) 97 Intake Visit Reasons: EP swollen glands Intake Note: pt is here for c/o swollen glands, denies sore throat states her glands feel swollen, undergoing testing to rule out thyroid cancer Patient Tobacco Use Status: Never used Tobacco Allergies environmental allergies Allergy (Unknown, Uncoded 04/13/23 10:25) unknown From Cymbalta Allergy (Unknown, Uncoded 04/13/23 10:25) RASH tress, pollen,mold, dust,pet d Allergy (Unknown, Uncoded 04/13/23 10:25) Unknown Medication List - Last Reconciled 04/13/23 by Boubacar Alonzo MD albuterol sulfate 2.5 mg (3 mL) inhalation QID 30 days albuterol sulfate 5 mg inhalation Q4H PRN albuterol sulfate 90 mcg/actuation (ProAir HFA) 1 inh inhalation QID PRN 30 days atenolol 50 mg PO DAILY 90 days bisacodyl (Dulcolax (bisacodyl)) 20 mg (4 x 5 mg) PO ONCE 1 day docusate sodium 100 mg PO BEDTIME levothyroxine 50 mcg PO DAILY 90 days montelukast 10 mg PO DAILY 90 days polyethylene glycol 3350 (Miralax) 238 grams PO ONCE sumatriptan succinate 25 mg PO ONCE PRN 90 days Do you need a note to return to daycare/school/sports/work: Yes HPI EP swollen glands HPI Details Patient presents for a sick visit. Reporting symptoms of sinus congestion, sore throat and difficulty swallowing. Low-grade fever. No family member is sick. No recent travel. Patient reports symptoms of malaise and fatigue. [facility] Medical History Hypothyroidism Multinodular thyroid Vitamin D deficiency Surgical History Hx of cervical discectomy Hx of umbilical hernia repair Hx of cholecystectomy Hx of section Family History Mother Hypertension Father Hypertension High cholesterol Sister Thyroid cancer Housing: House Alcohol intake: current Alcohol intake frequency: holidays/special occasions only Patient Tobacco Use Status: Never used Tobacco e-Cigarette/Vaping Use: Never Used Second Hand Smoke Exposure: No service: No Current occupational status: employed Cognitive needs: No Hearing needs: No Vision needs: Yes Physical Exam Vital Signs: Last Vital Signs Temp 97.8 F 04/13/23 09:53 Pulse 71 04/13/23 09:53 BP 146/82 H 04/13/23 09:53 Pulse Ox 97 04/13/23 09:53 BMI result Body Mass Index 43.3 Const General: cooperative and healthy appearing Nutritional Appearance: well nourished Orientation/consciousness: patient oriented x3 Limitations: no limitations HEENT Head: Yes normal to inspection Eyes General: appearance normal, both eyes and all related structures Neck Neck: Yes normal visual inspection Chest Chest palpation & inspection: normal palpation of entire chest wall Resp Effort & Inspection: normal respiratory effort Neuro General: patient oriented x3 Results AMB Rapid Strep AMB Rapid Strep Negative Last Edit by Randolph Hopper CMA on 04/13/23 10:13 Results Reviewed Results Reviewed: Laboratory Last Values Strep Scn [facility] Clinic Negative 04/13/23 10:12 Assessment & Plan Assessment & Plan (1) Upper respiratory tract infection: Code(s): J06.9 - Acute upper respiratory infection, unspecified Plan: Antibiotics ordered. Increase fluid intake. Tylenol for aches and pains. If symptoms worsen, follow-up here for a recheck. Orders: Orders AMB Rapid Strep Screen Today Z13.9 - Encounter for screening, unspecified Coding Level of Care Code Est Pt Level 3 (57084) Diagnoses Upper respiratory tract infection J06.9
[2023-04-13 09:53] VITALS: BP 146/82; PULSE 71; TEMP 36.6; O2SAT 97; BMI 43.3
== END 2023-04-13 11:03 | disposition home or self-care (01) ==
PROVIDERS: PCP Internal Medicine; Visit Provider Internal Medicine
DX: J06.9 Acute upper respiratory infection, unspecified (principal); J02.9 Acute pharyngitis, unspecified
CPT/HCPCS: 87880; 99213

== ENCOUNTER 2023-04-13 14:04 | Outpatient (REF) | payer BC, SELFPAY ==
--- NOTE | ~2023-04-13 | US_ITS ---
EXAMINATION: US THYROID CLINICAL INFORMATION: Nontoxic multinodular goiter. COMPARISON: CT soft tissue neck 01/28/2023. Ultrasound soft tissue head/neck thyroid dated 01/21/2022. TECHNIQUE: Linear transducer grayscale and color Doppler examination with attention to the region of the thyroid. FINDINGS: SIZE: Measurements of the thyroid lobes and nodules are given in sagittal, anteroposterior and transverse dimensions respectively. Right Thyroid Lobe: 4.5 x 1.5 x 1.6 cm, volume 5.6 mL. Previously 4.8 x 1.6 x 1.7 cm, volume 6.8 mL. Parenchyma: The gland echotexture is homogeneous. Thyroid vascularity is normal. Left Thyroid Lobe: 3.9 x 0.9 x 1.4 cm, volume 2.5 mL. Previously 4.1 x 1.0 x 1.6 cm, volume 3.4 mL. Parenchyma: The gland echotexture is homogeneous. Thyroid vascularity is normal. Isthmus: 0.3 cm in maximum AP dimension. Previously 0.3 cm. Estimated total number of nodules greater than or equal to 1 cm: 0. [employer] nodules are described as follows: 1. Location: Right mid. Size: 0.9 x 0.8 x 0.7 cm, volume 0.3 mL. Previously: 1.0 x 1.0 x 0.9 cm, volume 0.5 mL. Nodule characteristics: Composition: Solid/almost completely solid (2). Echogenicity: Very hypoechoic (3). Shape: Not taller than wide (0). Margins: Smooth (0). Echogenic Foci: None (0). ACR TI-RADS total points: 5 Previous: 8 ACR TI-RADS category: 4 Previous: 5 Significant change in size (>/= 20% in 2 dimensions and minimal increase of 2 mm or 50% or greater increase in volume): No Change in features: Yes Change in ACR TI-RADS risk category: Yes NODES: Multiple bilateral neck lymph nodes are noted. In the right neck level 3 is a 1.0 cm lymph node in short axis with loss of fatty hilum. Additional lymph node in the right neck level 3 measuring 0.7 cm in short axis possibly hilum. In the left neck level 3 is a 0.6 cm lymph node with loss of fatty hilum. Additional lymph node in the left neck level 4 measuring 0.5 cm in short axis with loss of hilum. US/US thyroid IMPRESSION: 1. Nodule in the midportion of the right thyroid lobe demonstrates decrease maximum dimension measuring 0.9 cm with a decrease in BI-RADS category now 4. Nodule does not require follow-up. 2. Bilateral thyroid lobes demonstrate homogeneous echotexture with normal vascularity. 3. Multiple bilateral neck lymph nodes are noted. In the right neck level 3 is a 1.0 cm lymph node in short axis with loss of fatty hilum. Additional lymph node in the right neck level 3 measuring 0.7 cm in short axis possibly hilum. In the left neck level 3 is a 0.6 cm lymph node with loss of fatty hilum. Additional lymph node in the left neck level 4 measuring 0.5 cm in short axis with loss of hilum. ACR TI-RADS RECOMMENDATION REFERENCE: Ultrasound-guided fine-needle aspiration, follow up ultrasound, no further followup. * TR4 (4-6 points): FNA if more than or equal to 1.5 cm in maximum dimension, follow up ultrasound in 1, 2, 3 and 5 years if 1 to 1.4 cm in maximum dimension. * TR4 nodules that are below the size threshold for follow up receive no followup.
== END 2023-04-13 14:05 | disposition home or self-care (01) ==
LOC: HO.US 14:04
PROVIDERS: PCP Internal Medicine; Visit Provider Internal Medicine Endocrinology, Diabetes & Metabolism
DX: E04.2 Nontoxic multinodular goiter (principal)
CPT/HCPCS: 76536

== ENCOUNTER 2023-04-29 14:48 | Outpatient (AMB) | payer BC, SELFPAY ==
[2023-04-29 14:49] VITALS: BP 142/82; PULSE 79; O2SAT 97; BMI 41.0
--- NOTE | 2023-04-29 14:49 | A.OFFPC_ITS ---
Vital Signs 04/29/23 14:49 Height 5 ft 2 in Weight 224 lb 6 oz BMI 41.0 BP 142/82 H Blood Pressure Location Rt brachial Position Sitting Pulse 79 Pulse Source Pulse Oximeter Pulse Oximetry (%) 97 Oxygen Delivery Method Room Air Intake Visit Reasons: 4 month fu Allergies environmental allergies Allergy (Unknown, Uncoded 04/13/23 10:25) unknown From Cymbalta Allergy (Unknown, Uncoded 04/13/23 10:25) RASH tress, pollen,mold, dust,pet d Allergy (Unknown, Uncoded 04/13/23 10:25) Unknown Medication List - Last Reconciled 04/29/23 by Kerri Otto MD albuterol sulfate 2.5 mg (3 mL) inhalation QID 30 days albuterol sulfate 5 mg inhalation Q4H PRN albuterol sulfate 90 mcg/actuation (ProAir HFA) 1 inh inhalation QID PRN 30 days atenolol 50 mg PO DAILY 90 days bisacodyl (Dulcolax (bisacodyl)) 20 mg (4 x 5 mg) PO ONCE 1 day docusate sodium 100 mg PO BEDTIME levothyroxine 50 mcg PO DAILY 90 days montelukast 10 mg PO DAILY 90 days sumatriptan succinate 25 mg PO ONCE PRN 90 days Tobacco use date assessed: 04/29/23 Dental Screening Dental Screen Date: 04/29/23 Did you have a dental visit in the last 12 months?: Yes Did you have a dental problem in the last 6 months where you did not have access to dental care?: No Was dental information given to patient?: Patient has dentist HPI 4 month fu HPI Details Patient came in today for follow-up appointment Patient had ultrasound and CT scan of neck done recently, she is seeing endocr inologist for hypothyroidism She has bilateral lymphadenopathy cervical patient is waiting for thyroid biopsy Allergy: Currently she is taking Zyrtec, Nasacort daily [id number]. She continued to have postnasal drip and the need to clear her throat frequently along with some hoarseness. She does have thyroid not do that is sufficient the restoration officer, if the patient says that she has a very strong family history of thyroid cancer and that is concerning. She would like to go back and discuss that with them. She will cold in book appointment it [facility]. Blood pressure is stable patient is on atenolol 50 mg, she is tolerating medication. Headaches are stable she does not need to take sumatriptan as much as she was taking before. She also have history of cervical surgery from front of the neck. And have a scar which is well-healed. BMI is elevated in 40s patient is morbidly obese need to lose weight. Follow-up 4 months patient was supposed to have labs done up to the last visit but she never did. Reminded to have it done today. [facility] Medical History Hypothyroidism Multinodular thyroid Vitamin D deficiency Surgical History Hx of cervical discectomy Hx of umbilical hernia repair Hx of cholecystectomy Hx of section Family History Mother Hypertension Father Hypertension High cholesterol Sister Thyroid cancer Social History Housing: House Alcohol intake: current Alcohol intake frequency: holidays/special occasions only Patient Tobacco Use Status: Never used Tobacco e-Cigarette/Vaping Use: Never Used Second Hand Smoke Exposure: No service: No Current occupational status: employed Cognitive needs: No Hearing needs: No Vision needs: Yes Questionnaire Thrive Questionnaire Date Thrive assessed: 05/27/22 NALDO-7 AMB Questionnaire NALDO-7 Date NALDO - 7 assessed: 05/27/22 Source: Developed by Drs. Don Moncada, Shalini Gutierrez, Hamlet Gordillo and colleagues, with an educational pratibha from [employer]. Review of Systems Const Denies chills and Denies fever(s) ENT Denies epistaxis Card Denies chest pain Resp Denies chest congestion, Denies cough and Denies hemoptysis GI Denies diarrhea and Denies nausea Skin/Breast Denies rash Neuro Reports no additional complaints Psych Reports no additional complaints Endo Reports no additional complaints Physical exam (Primary Care) Vital Signs: Last Vital Signs Pulse 79 04/29/23 14:49 BP 142/82 H 04/29/23 14:49 Pulse Ox 97 04/29/23 14:49 Oxygen Delivery Method Room Air 04/29/23 14:49 BMI result Body Mass Index 41.0 Tobacco/Smoking Status: Tobacco use Status Tobacco use date assessed 04/29/23 04/29/23 14:56 Patient Tobacco Use Status Never used Tobacco 04/29/23 14:56 e-Cigarette/Vaping Use Never Used 04/29/23 14:56 Thrive Assessment: Date of Thrive Assessment Date Thrive assessed 05/27/22 04/29/23 14:56 Const General: cooperative, comfortable and no acute distress Orientation/consciousness: patient oriented x3 HENMT Head: Yes normocephalic Eyes General: appearance normal, both eyes and all related structures Neck Neck: Yes supple Resp Effort & Inspection: normal respiratory effort, no cough and no stridor Cardio Rhythm: regular rhythm Heart sounds: S1 normal heart sound present and S2 normal heart sound present Skin General skin exam: turgor normal Neuro General: patient oriented x3, tone normal and moves all extremities Extrem Right lower extremity: no edema Left lower extremity: no edema Assessment and Plan Assessment & Plan (1) Hypertension, essential: Code(s): I10 - Essential (primary) hypertension (2) Hypothyroidism: Code(s): E03.9 - Hypothyroidism, unspecified Qualifiers: Hypothyroidism type: unspecified Qualified Code(s): E03.9 - Hypothyroidism, unspecified (3) Headache syndrome: Code(s): G44.89 - Other headache syndrome (4) Environmental allergies: Code(s): Z91.09 - Other allergy status, other than to drugs and biological substances (5) Cervical lymphadenopathy: Code(s): R59.0 - Localized enlarged lymph nodes (6) Hiatal hernia: Code(s): K44.9 - Diaphragmatic hernia without obstruction or gangrene (7) Morbid obesity due to excess calories: Code(s): E66.01 - Morbid (severe) obesity due to excess calories Plan Patient came in today for follow-up appointment Patient had ultrasound and CT scan of neck done recently, she is seeing restoration officer for hypothyroidism She has bilateral lymphadenopathy cervical patient is waiting for thyroid biopsy Allergy: Currently she is taking Zyrtec, Nasacort daily [id number]. She continued to have postnasal drip and the need to clear her throat frequently along with some hoarseness. Hypertension: Blood pressure is elevated, patient is on atenolol 50 mg, she is tolerating medication. I am changing it to atenolol chlorthalidone 50-25 mg Headaches are stable she does not need to take sumatriptan as much as she was taking before. She also have history of cervical surgery from front of the neck. And have a scar which is well-healed. BMI is elevated in 40s patient is morbidly obese need to lose weight. Labs are still not done, I have changed to nonfasting so patient can have it done today. Family history reviewed Orders: Orders Comprehensive Met. Panel Today E03.9 - Hypothyroidism, unspecified, E66.01 - Morbid (severe) obesity due to excess calories, E66.09 - Other obesity due to excess calories, G44.89 - Other headache syndrome, I10 - Essential (primary) hypertension, Z91.09 - Other allergy status, other than to drugs and biological substances TSH reflex Free T4 Today E03.9 - Hypothyroidism, unspecified, E66.01 - Morbid (severe) obesity due to excess calories, E66.09 - Other obesity due to excess calories, G44.89 - Other headache syndrome, I10 - Essential (primary) hyperten ash, Z91.09 - Other allergy status, other than to drugs and biological substances Complete Blood Count Auto Diff Today E03.9 - Hypothyroidism, unspecified, E66.01 - Morbid (severe) obesity due to excess calories, E66.09 - Other obesity due to excess calories, G44.89 - Other headache syndrome, I10 - Essential (primary) hypertension, Z91.09 - Other allergy status, other than to drugs and biological substances LDL Cholesterol Direct Today E03.9 - Hypothyroidism, unspecified, E66.01 - Morbid (severe) obesity due to excess calories, E66.09 - Other obesity due to excess calories, G44.89 - Other headache syndrome, I10 - Essential (primary) hypertension, Z91.09 - Other allergy status, other than to drugs and biological substances Medications: New atenolol-chlorthalidone 50-25 mg 1 tab PO DAILY 90 tabs 0RF Coding Level of Care Code Est Pt Level 4 (90114) Diagnoses Hypertension, essential I10 Hypothyroidism, unspecified type E03.9 Hypothyroidism type: unspecified Headache syndrome G44.89 Environmental allergies Z91.09 Cervical lymphadenopathy R59.0 Hiatal hernia K44.9 Morbid obesity due to excess calories E66.01
== END 2023-04-29 16:04 | disposition home or self-care (01) ==
PROVIDERS: PCP Internal Medicine; Visit Provider Internal Medicine
DX: I10 Essential (primary) hypertension (principal); E66.01 Morbid (severe) obesity due to excess calories; Z68.41 Body mass index [BMI] 40.0-44.9, adult; E03.9 Hypothyroidism, unspecified; G44.89 Other headache syndrome; Z91.09 Other allergy status, other than to drugs and biological substances; R59.0 Localized enlarged lymph nodes; K44.9 Diaphragmatic hernia without obstruction or gangrene
CPT/HCPCS: 99214

== ENCOUNTER 2023-04-29 15:17 | Outpatient (REF) | payer BC, SELFPAY ==
[2023-04-29 16:27] LABS: MANUAL DIFF FLAG NO
[2023-04-29 16:42] LABS: Basophils Absolute Auto 0.1 X10*3/uL (0.0-0.2); Basophils Percent Auto 0.6 % (0-2); Eosinophils Absolute Auto 0.3 X10*3/uL (0.0-0.4); Eosinophils Percent Auto 2.9 % (0-4); Hemoglobin 12.6 g/dl (12.0-16.0); Imm Gran Abs Auto 0.03 X10*3/uL (0.00-0.03); Imm Gran Pct Auto 0.3 % (0.0-0.4); Lymphocytes Absolute Auto 2.8 X10*3/uL (1.2-4.9); Lymphocytes Percent Auto 28.2 % (20-40); Mean Corpuscular HGB Conc 33.2 g/dl (31.0-35.0); Mean Corpuscular Hemoglobin 31.2 pg (27.0-33.0); Mean Corpuscular Volume 94.1 fL (80.0-98.0); Mean Platelet Volume 10.5 fL (9.4-12.3); Monocytes Absolute Auto 0.9 X10*3/uL (0.1-1.2); Monocytes Percent Auto 8.5 % (2-11); Neutrophils Absolute Auto 5.9 x10*3/uL (2.0-8.3); Neutrophils Percent Auto 59.5 % (45-73); Platelet Count 363 X10*3/uL (160-400); Red Blood Count 4.04 X10*6/uL (4.20-5.50)
[2023-04-29 17:32] LABS: Alanine Aminotransferase 16 U/L (0-31); Albumin Level 3.7 g/dL (3.5-5.0); Alkaline Phosphatase 72 U/L (39-117); Anion Gap 11 (12-20); Aspartate Amino Transferase 17 U/L (5-31); Bilirubin Total 0.1 mg/dL (0.0-1.0); Blood Urea Nitrogen 16 mg/dL (9-16); Calcium 8.9 mg/dL (8.4-10.2); Carbon Dioxide 26 mmol/L (22-29); Chloride 105 mmol/L (96-108); Estimated Glomerular Filt Rate > 60; Glucose Random 122 mg/dL (60-115); Potassium 3.9 mmol/L (3.3-5.1); Sodium 138 mmol/L (135-145)
[2023-04-29 17:48] LABS: TSH reflex Free T4 2.07 uIU/mL (0.32-4.0); Thyroid Stimulating Hormone 2.07 uIU/mL (0.32-4.0)
[2023-04-29 17:50] LABS: Free T4 (Free Thyroxine) 0.95 ng/dL (0.71-1.85)
[2023-05-01 13:05] LABS: LDL Cholesterol Direct 86 mg/dL (<100)
== END 2023-04-29 15:18 | disposition home or self-care (01) ==
LOC: HO.HMGCLDS 15:17
PROVIDERS: Internal Medicine; PCP Internal Medicine; Visit Provider Internal Medicine
DX: E66.09 Other obesity due to excess calories (principal); E03.9 Hypothyroidism, unspecified; I10 Essential (primary) hypertension; E66.01 Morbid (severe) obesity due to excess calories; G44.89 Other headache syndrome; E04.2 Nontoxic multinodular goiter; Z91.09 Other allergy status, other than to drugs and biological substances
CPT/HCPCS: 36415; 80053; 83721; 84439; 84443; 85025

== ENCOUNTER 2023-07-13 16:48 | Outpatient (REF) | payer BC, SELFPAY ==
[2023-07-13 18:00] LABS: Free T4 (Free Thyroxine) 0.85 ng/dL (0.71-1.85); Thyroid Stimulating Hormone 2.61 uIU/mL (0.32-4.0)
== END 2023-07-13 16:49 | disposition home or self-care (01) ==
LOC: HO.LAB 16:48
PROVIDERS: PCP Internal Medicine; Visit Provider Internal Medicine Endocrinology, Diabetes & Metabolism
DX: E03.9 Hypothyroidism, unspecified (principal)
CPT/HCPCS: 36415; 84439; 84443

== ENCOUNTER 2023-07-16 15:29 | Outpatient (AMB) | payer BC, SELFPAY ==
[2023-07-16 15:31] VITALS: BP 110/68; PULSE 81; BMI 44.5
--- NOTE | 2023-07-16 15:31 | A.OFFVIS_ITS ---
Intake Vital Signs 07/16/23 15:31 Height 5 ft 2 in Weight 243 lb 6.245 oz BMI 44.5 BP 110/68 Blood Pressure Location Rt brachial Position Sitting Pulse 81 Pulse Source Pulse Oximeter Intake Visit Reasons: F/Up nontoxic nodular goiter Intake Note: Patient present today for nontoxic nodular goiter follow up visit. Mental Health Nurse Practitioner Required: No Accompanied by: Self / Same As Patient Allergies environmental allergies Allergy (Unknown, Uncoded 07/16/23 15:38) unknown From Cymbalta Allergy (Unknown, Uncoded 07/16/23 15:38) RASH tress, pollen,mold, dust,pet d Allergy (Unknown, Uncoded 07/16/23 15:38) Unknown Medication List - Last Reconciled 07/16/23 by Don Emery MD albuterol sulfate 2.5 mg (3 mL) inhalation QID 30 days albuterol sulfate 5 mg inhalation Q4H PRN albuterol sulfate 90 mcg/actuation (ProAir HFA) 1 inh inhalation QID PRN 30 days atenolol-chlorthalidone 50-25 mg 1 tab PO DAILY bisacodyl (Dulcolax (bisacodyl)) 20 mg (4 x 5 mg) PO ONCE 1 day levothyroxine 50 mcg PO DAILY 90 days montelukast 10 mg PO DAILY 90 days HPI HPI Comments History of Present Illness Details 51 YO F with PMHx hypothyroidism and a NTMNG who is seen in consultation for multinodular thyroid at the request of PCP.. The patient last saw Dr. Roberto on 02/11/2022 She reports her Sister was recently diganosed with thyroid cancer, which prompted her to request a thyroid US. Underwent a thyroid US 01/21/2022 which revealed multiple bilateral thyroid nodules, and a question of a parathyroid adenoma. Currently does mention dysphagia and hoarseness of voice. Reports a sensation of swelling in the neck and some difficulty breathing while lying flat. Denies any symptoms of hyper or hypothyroidism currently. She does have a history of hypothyroidism and TSH is at goal on levothyroxine 50 mcg PO daily. Denies any history of head or neck irradiation. Does report a family history of thyroid cancer in her Sister. Thyroid US: 01/21/2022 Right Thyroid Lobe: 4.8 x 1.6 x 1.7 cm, volume 6.8 mL. Parenchyma: The gland echotexture is homogeneous. Thyroid vascularity is normal. Left Thyroid Lobe: 4.1 x 1.0 x 1.6 cm, volume 3.4 mL. Parenchyma: The gland echotexture is homogeneous. Thyroid vascularity is normal. Isthmus: 0.3 cm in maximum AP dimension. Estimated total number of nodules greater than or equal to 1 cm: 3. Legal Coordinator nodules are described as follows: 1. Location: Right mid. ?? ? Size: 1.0 x 1.0 x 0.9 cm, volume 0.52 mL. ?? ? Nodule characteristics: ?? ? Composition: Solid (2). ?? ? Echogenicity: Very hypoechoic (3). ?? ? Shape: Taller than wide (3). ?? ? Margins: Ill-defined (0). ?? ? Echogenic Foci: None (0). ?? ? ACR TI-RADS total points: 8 ?? ? ACR TI-RADS category: 5 2. Location: Right inferior isthmus. ?? ? Size: 0.7 x 0.6 x 0.7 cm, volume 0.16 mL. ?? ? Nodule characteristics: ?? ? Composition: Solid (2). ?? ? Echogenicity: Very hypoechoic (3). ?? ? Shape: Not taller than wide (0). ?? ? Margins: Ill-defined (0). ?? ? Echogenic Foci: None (0). ?? ? ACR TI-RADS total points: 5 ?? ? ACR TI-RADS category: 4 3. Location: Right posterior inferior. I t is uncertain this represents an exophytic nodule could represent a parathyroid adenoma. ?? ? Size: 2.1 x 1.2 x 1.1 cm, volume 1.44 mL. ?? ? Nodule characteristics: ?? ? Composition: Solid (2). ?? ? Echogenicity: Hypoechoic (2). ?? ? Shape: Taller than wide (3). ?? ? Margins: Irregular (2). ?? ? Echogenic Foci: None (0). ?? ? ACR TI-RADS total points: 9 ?? ? ACR TI-RADS category: 5 4. Location: Left medial/isthmus. ?? ? Size: 1.0 x 0.5 x 0.7 cm, volume 0.19 mL. ?? ? Nodule characteristics: ?? ? Composition: Solid (2). ?? ? Echogenicity: Hypoechoic (2). ?? ? Shape: Not taller than wide (0). ?? ? Margins: Ill-defined (0). ?? ? Echogenic Foci: None (0). ?? ? ACR TI-RADS total points: 4 ?? ? ACR TI-RADS category: 4 NODES: There are bilateral enlarged lymph nodes, level 3 on the right measuring 2.7 x 0.8 x 1.3 cm, and level 4 on the left measuring 2 x 0.6 x 1.5 cm and 2.3 x 0.6 x 1.1 cm. Labs: Laboratory Tests 12/26/21 07:35 TSH 2.[address] Roberto showed only pseudonodules not discrete nodules . Antibodies for Vy's are negative. Repeat thyroid ultrasound shows the presence of abnormal enlarged lymph nodes bilaterally PFSH Medical History Hypothyroidism Multinodular thyroid Vitamin D deficiency Surgical History Hx of cervical discectomy Hx of umbilical hernia repair Hx of cholecystectomy Hx of section Family History Mother Hypertension Father Hypertension High cholesterol Sister Thyroid cancer Social History Housing: House Alcohol intake: current Alcohol intake frequency: holidays/special occasions only Patient Tobacco Use Status: Never used Tobacco e-Cigarette/Vaping Use: Never Used Second Hand Smoke Exposure: No service: No Current occupational status: employed Cognitive needs: No Hearing needs: No Vision needs: Yes Physical Exam Const Other: Thyroid gland is normal size weighs about 15 g . There are no palpable thyroid nodule Assessment & Plan Assessment & Plan (1) Hypothyroidism: Code(s): E03.9 - Hypothyroidism, unspecified Qualifiers: Hypothyroidism type: unspecified Qualified Code(s): E03.9 - Hypothyroidism, unspecified Plan: This 53-year-old white female with a history of hypothyroidism currently being treated with 50 mcg levothyroxine. She appears to be clinically biochemically euthyroid. The other issue is the abnormal lymph nodes present in the neck . Plan is to talk to the patient about different options including sending the patient for a 2nd opinion ultrasound to either Dr. Pgae Monzon in [place] or [facility] or to ENT to have lymph nodes evaluated. I do not feel that a thyroidectomy at this point would be warranted. After a long discussion with the patient it was decided to send the patient to Dr. Page Monzon for 2nd opinion (2) Thyroid nodule: Code(s): E04.1 - Nontoxic single thyroid nodule Plan: See above plan Orders: Referrals Endocrinology Referral E04.1 - Nontoxic single thyroid nodule Coding Level of Care Code Est Pt Level 3 (57703) Diagnoses Hypothyroidism, unspecified type E03.9 Hypothyroidism type: unspecified Thyroid nodule E04.1
== END 2023-07-16 16:18 | disposition home or self-care (01) ==
PROVIDERS: PCP Internal Medicine; Visit Provider Internal Medicine Endocrinology, Diabetes & Metabolism
DX: E03.9 Hypothyroidism, unspecified (principal); E04.1 Nontoxic single thyroid nodule
CPT/HCPCS: 99213

== ENCOUNTER → 2023-07-16 15:29 | Outpatient (BNVA) | payer BC, SELFPAY | PROVIDERS: PCP Internal Medicine; Visit Provider Internal Medicine Endocrinology, Diabetes & Metabolism ==

== ENCOUNTER 2023-08-13 08:30 | Outpatient (AMB) | payer BC, SELFPAY ==
--- NOTE | 2023-08-13 08:42 | A.OFFPC_ITS ---
Vital Signs 08/13/23 08:43 Height 5 ft 2 in Intake Visit Reasons: Discharge follow-up Allergies environmental allergies Allergy (Unknown, Uncoded 07/16/23 15:38) unknown From Cymbalta Allergy (Unknown, Uncoded 07/16/23 15:38) RASH tress, pollen,mold, dust,pet d Allergy (Unknown, Uncoded 07/16/23 15:38) Unknown Medication List - Last Reconciled 08/13/23 by Kerri Otto MD albuterol sulfate 5 mg inhalation Q4H PRN albuterol sulfate 90 mcg/actuation (ProAir HFA) 1 inh inhalation QID PRN 30 days atenolol-chlorthalidone 50-25 mg 1 tab PO DAILY bisacodyl (Dulcolax (bisacodyl)) 20 mg (4 x 5 mg) PO ONCE 1 day levothyroxine 50 mcg PO DAILY 90 days montelukast 10 mg PO DAILY 90 days Tobacco use date assessed: 08/13/23 Dental Screening Dental Screen Date: 08/13/23 Did you have a dental visit in the last 12 months?: Yes Did you have a dental problem in the last 6 months where you did not have access to dental care?: No Was dental information given to patient?: Patient has dentist HPI Discharge follow-up HPI Details Patient is 53-year-old female this is a hospital discharge follow-up from 08/06/2023 Patient have a history of hypertension, she presented to emergency room [facility] in with a chief complaint of chest pain of 1 day duration. Patient says that the pain is constant for 24 hours. She also complained of feeling slightly short of breath. Patient had COVID in May of this year and had lingering symptoms since. On examination in emergency room her lungs were clear to auscultation and patient was breathing comfortably. CTA was obtained to look for PE as well as pneumonia Electrocardiogram did not show anything acute Her potassium and magnesium was repleted, and it was thought that it is s econdary to chlorthalidone. However chest pain was not due to chlorthalidone. Troponin level was not elevated CTA resulted for negative PE, however there was incidental finding of pleural based pulmonary nodule. For that chest MRI was recommended She continued to feel shortness of breath, and chest discomfort off and on but it is not as bad as before. Mostly at night when she lays down patient is having mucus which causes cough. I have ordered labs that she will have it done to monitor magnesium and potassium And pulmonary referral was placed to be seen urgently. 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 [facility] Medical History Vitamin D deficiency Multinodular thyroid Hypothyroidism Surgical History Hx of cervical discectomy Hx of umbilical hernia repair Hx of cholecystectomy Hx of section Family History Mother Hypertension Father Hypertension High cholesterol Sister Thyroid cancer Social History Housing: House Alcohol intake: current Alcohol intake frequency: holidays/special occasions only Patient Tobacco Use Status: Never used Tobacco e-Cigarette/Vaping Use: Never Used Second Hand Smoke Exposure: No service: No Current occupational status: employed Cognitive needs: No Hearing needs: No Vision needs: Yes Questionnaire Thrive Questionnaire Date Thrive assessed: 05/27/22 AUDIT C Alcohol Use Questionnaire (AUDIT-C) 1. How often do you have a drink containing alcohol?: Monthly or less 2. How many drinks containing alcohol do you have on a typical day when you are drinking?: 1 or 2 3. How often do you have six or more drinks on one occasion?: Never Total Score: 1 Score Reviewed/Action Taken: Yes NALDO-7 AMB Questionnaire NALDO-7 Date NALDO - 7 assessed: 05/27/22 Source: Developed by Drs. Don Moncada, Shalini Gutierrez, Hamlet Gordillo and colleagues, with an educational pratibha from [employer]. Review of Systems Const Denies chills and Denies fever(s) ENT Denies epistaxis and Denies nasal discharge Resp Denies hemoptysis GI Denies diarrhea and Denies nausea Skin/Breast Denies rash Neuro Reports no additional complaints Psych Reports no additional complaints Endo Reports no additional complaints Physical exam (Primary Care) Tobacco/Smoking Status: Tobacco use Status Tobacco use date assessed 08/13/23 08/13/23 08:44 Patient Tobacco Use Status Never used Tobacco 08/13/23 08:44 e-Cigarette/Vaping Use Never Used 08/13/23 08:44 Thrive Assessment: Date of Thrive Assessment Date Thrive assessed 05/27/22 08/13/23 08:44 Telehealth Telehealth Location of provider rendering services: practice address Location of patient: address on file Patient Identification confirmed using: Name, : Yes Telehealth method: video Patient verbally consented to treatment: Yes Patient verbally consented to billing insurance company: Yes Patient informed of any privacy concerns related to visit: Yes Assessment and Plan Assessment & Plan (1) Hospital discharge follow-up: Code(s): Z09 - Encounter for follow-up examination after completed treatment for conditions other than malignant neoplasm (2) Shortness of breath: Code(s): R06.02 - Shortness of breath (3) Electrolyte abnormality: Code(s): E87.8 - Other disorders of electrolyte and fluid balance, not elsewhere classified (4) Pulmonary nodule: Code(s): R91.1 - Solitary pulmonary nodule Plan Patient is 53-year-old female this is a hospital discharge follow-up from Patient have a history of hypertension, she presented to emergency room [facility] in with a chief complaint of chest pain of 1 day duration. Patient says that the pain is constant for 24 hours. She also complained of feeling slightly short of breath. Patient had COVID in May of this year and had lingering symptoms since. On examination in emergency room her lungs were clear to auscultation and patient was breathing comfortably. CTA was obtained to look for PE as well as pneumonia Electrocardiogram did not show anything acute Her potassium and magnesium was repleted, and it was thought that it is secondary to chlorthalidone. However chest pain was not due to chlorthalidone. Troponin level was not elevated CTA resulted for negative PE, however there was incidental finding of pleural based pulmonary nodule. For that chest MRI was recommended She continued to feel shortness of breath, and chest discomfort off and on but it is not as bad as before. Mostly at night when she lays down patient is having mucus which causes cough. I have ordered labs that she will have it done to monitor magnesium and potassium And pulmonary referral was placed to be seen urgently. 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 Orders: Orders Magnesium Today E87.8 - Other disorders of electrolyte and fluid balance, not elsewhere classified, R06.02 - Shortness of breath, R91.1 - Solitary pulmonary nodule, Z09 - Encounter for follow-up examination after completed treatment for conditions other than malignant neoplasm Comprehensive Met. Panel Today E87.8 - Other disorders of electrolyte and fluid balance, not elsewhere classified, R06.02 - Shortness of breath, R91.1 - Solitary pulmonary nodule, Z09 - Encounter for follow-up examination after completed treatment for conditions other than malignant neoplasm Referrals Pulmonary Medicine Referral R06.02 - Shortness of breath, R91.1 - Solitary pulmonary nodule Coding Level of Care Code Tele Est Pt Level 4 (40771) Diagnoses Hospital discharge follow-up Z09 Shortness of breath R06.02 Electrolyte abnormality E87.8 Pulmonary nodule R91.1 Time Spent (min) 30 Comment 5 minute reviewing notes pre visit, 15 with patient, 5 charting, 5 coordination of care
== END 2023-08-13 15:23 | disposition home or self-care (01) ==
LOC: HO.HMGC 08:30
PROVIDERS: PCP Internal Medicine; Visit Provider Internal Medicine
DX: R06.02 Shortness of breath (principal); Z09 Encounter for follow-up examination after completed treatment for conditions other than malignant neoplasm; E87.8 Other disorders of electrolyte and fluid balance, not elsewhere classified; R91.1 Solitary pulmonary nodule
CPT/HCPCS: 99214

== ENCOUNTER 2023-08-13 16:24 | Outpatient (REF) | payer BC, SELFPAY ==
[2023-08-13 18:45] LABS: Alanine Aminotransferase 22 U/L (0-31); Albumin Level 3.6 g/dL (3.5-5.0); Alkaline Phosphatase 64 U/L (39-117); Anion Gap 10 (12-20); Aspartate Amino Transferase 19 U/L (5-31); Bilirubin Total 0.2 mg/dL (0.0-1.0); Blood Urea Nitrogen 12 mg/dL (9-16); Calcium 8.8 mg/dL (8.4-10.2); Carbon Dioxide 28 mmol/L (22-29); Chloride 104 mmol/L (96-108); Estimated Glomerular Filt Rate > 60; Glucose Random 86 mg/dL (60-115); Magnesium 2.1 mg/dL (1.6-2.6); Potassium 3.8 mmol/L (3.3-5.1); Sodium 138 mmol/L (135-145); Total Protein 6.6 g/dL (6.5-8.0)
== END 2023-08-13 16:25 | disposition home or self-care (01) ==
LOC: HO.LAB 16:24
PROVIDERS: PCP Internal Medicine; Visit Provider Internal Medicine
DX: E87.8 Other disorders of electrolyte and fluid balance, not elsewhere classified (principal); R06.02 Shortness of breath; R91.1 Solitary pulmonary nodule
CPT/HCPCS: 36415; 80053; 83735

== ENCOUNTER 2023-08-14 14:53 | Outpatient (AMB) | payer BC, SELFPAY ==
[2023-08-14 14:58] VITALS: PULSE 71; O2SAT 99; BMI 43.9
--- NOTE | 2023-08-14 14:58 | MHC.OFFVIS ---
Intake Vital Signs 08/14/23 14:58 Height 5 ft 2 in Weight 240 lb BMI 43.9 Pulse 71 Pulse Source Pulse Oximeter Pulse Oximetry (%) 99 Oxygen Delivery Method Room Air Intake Visit Reasons: solitary pulm nodule Compressor Technician Required: No Allergies environmental allergies Allergy (Unknown, Uncoded 08/14/23 14:59) unknown From Cymbalta Allergy (Unknown, Uncoded 08/14/23 14:59) RASH tress, pollen,mold, dust,pet d Allergy (Unknown, Uncoded 08/14/23 14:59) Unknown HPI HPI Comments History of Present Illness Details The patient is here for pulmonary evaluation. The patient is a 53 year woman with a known history of asthma presenting with worsening history of cough in addition to an abnormal CT scan. the patient states that her asthma was in good control until recently when she started developing a URI. I was back in May. The patient was noted to have significant chest tightness and wheezing. She was started on prednisone. After she had a congested cough. Moderate severity. Still lingering. Feels that she is more congested and therefore has some chest tightness and difficulty ambulating. This is typical for her after a respiratory virus. The patient in meantime did undergo an imaging study including CT scan of the chest which was personally by me. The patient has a pleural-based density in the medial aspect of the back in the distribution of a potential schwannoma. Other potential conditions in the differential include a benign fibrous tumor of the pleura. Based on the location of it and size I do believe that the thoracic surgery consultation be warranted. In the meantime will going to go ahead and treat her for postviral bacterial infection with doxycycline and also optimize respiratory therapy. Based on my examination I do not believe she needs prednisone right now. If her symptoms worsen she can always call and request a prescription to the pharmacy. [facility] Medical History Vitamin D deficiency Multinodular thyroid Hypothyroidism Surgical History Hx of cervical discectomy Hx of umbilical hernia repair Hx of cholecystectomy Hx of section Family History Mother Hypertension Father Hypertension High cholesterol Sister Thyroid cancer Social History Housing: House Alcohol intake: current Alcohol intake frequency: holidays/special occasions only Patient Tobacco Use Status: Never used Tobacco e-Cigarette/Vaping Use: Never Used Second Hand Smoke Exposure: No service: No Current occupational status: employed Cognitive needs: No Hearing needs: No Vision needs: Yes Review of Systems Const Denies chills and Denies fever(s) ENT Denies epistaxis and Denies nasal discharge Card Reports dyspnea on exertion Resp Reports chest congestion, Reports cough, Denies hemoptysis, Reports dyspnea on exertion and Reports wheezing GI Denies diarrhea and Denies nausea Skin/Breast Denies rash Neuro Reports no additional complaints Psych Reports no additional complaints Endo Reports no additional complaints Aller/Immun Reports wheezing Physical Exam Vital Signs: Last Vital Signs Pulse 71 08/14/23 14:58 Pulse Ox 99 08/14/23 14:58 Oxygen Delivery Method Room Air 08/14/23 14:58 BMI result Body Mass Index 43.9 Const General: cooperative and healthy appearing Nutritional Appearance: well nourished Orientation/consciousness: patient oriented x3 Limitations: no limitations HEENT Head: Yes normal to inspection Eyes General: appearance normal, both eyes and all related structures Neck Neck: Yes normal visual inspection Chest Chest palpation & inspection: normal palpation of entire chest wall Resp Effort & Inspection: normal respiratory effort Auscultation: clear to auscultation bilaterally Neuro General: patient oriented x3 Assessment & Plan Assessment & Plan (1) Pulmonary nodule: Code(s): R91.1 - Solitary pulmonary nodule (2) Asthma: Code(s): J45.909 - Unspecified asthma, uncomplicated Qualifiers: Asthma severity: moderate Asthma persistence: persistent Asthma complication type: uncomplicated Qualified Code(s): J45.40 - Moderate persistent asthma, uncomplicated Plan Start Symbicort BID SHIRLEY as needed start Doxycycline referral to Thoracic surgery re: pleural based nodule ?schwannoma F/U 2-3 months Orders: Referrals Thoracic Surgery Referral D36.10 - Benign neoplasm of peripheral nerves and autonomic nervous system, unspecified, R91.1 - Solitary pulmonary nodule Medications: New doxycycline monohydrate 100 mg PO BID 14 days 28 tabs 0RF prednisone PO daily; Take 2 tabs daily x 5 days, then 1 tablet daily x 5 days 10 days 15 tabs 0RF budesonide-formoterol 160-4.5 mcg/actuation (Symbicort) 2 puffs inhalation BID 30 days 10.2 grams 11RF J44.89 - Other specified chronic obstructive pulmonary disease Coding Level of Care Code New Pt Level 4 (88474) Diagnoses Pulmonary nodule R91.1 Moderate persistent asthma without complication J45.40 Asthma severity: moderate Asthma persistence: persistent Asthma complication type: uncomplicated Time Spent (min) 38
== END 2023-08-14 15:31 | disposition home or self-care (01) ==
PROVIDERS: PCP Internal Medicine; Visit Provider Hospitalist
DX: R91.1 Solitary pulmonary nodule (principal); J45.40 Moderate persistent asthma, uncomplicated
CPT/HCPCS: 99204

== ENCOUNTER → 2023-08-14 14:53 | Outpatient (BNVA) | payer BC, SELFPAY | PROVIDERS: PCP Internal Medicine; Visit Provider Hospitalist ==

== ENCOUNTER 2023-09-09 15:22 | Outpatient (AMB) | payer BC, SELFPAY ==
[2023-09-09 15:26] VITALS: BP 120/78; PULSE 78; O2SAT 93; BMI 44.6
--- NOTE | 2023-09-09 15:26 | A.OFFPC_ITS ---
Vital Signs 09/09/23 15:26 Height 5 ft 2 in Weight 244 lb 2 oz BMI 44.6 BP 120/78 Blood Pressure Location Rt brachial Position Sitting Pulse 78 Pulse Source Pulse Oximeter Pulse Oximetry (%) 93 Oxygen Delivery Method Room Air Intake Visit Reasons: 8 month fu Allergies environmental allergies Allergy (Unknown, Uncoded 08/14/23 14:59) unknown From Cymbalta Allergy (Unknown, Uncoded 08/14/23 14:59) RASH tress, pollen,mold, dust,pet d Allergy (Unknown, Uncoded 08/14/23 14:59) Unknown Medication List - Last Reconciled 09/09/23 by Kerri Otto MD albuterol sulfate 5 mg inhalation Q4H PRN albuterol sulfate 90 mcg/actuation (ProAir HFA) 1 inh inhalation QID PRN 30 days atenolol 50 mg PO DAILY bisacodyl (Dulcolax (bisacodyl)) 20 mg (4 x 5 mg) PO ONCE 1 day budesonide-formoterol 160-4.5 mcg/actuation (Symbicort) 2 puffs inhalation BID 30 days doxycycline monohydrate 100 mg PO BID 10 days levothyroxine 50 mcg PO DAILY 90 days montelukast 10 mg PO DAILY 90 days nebulizers As directed prednisone PO daily; Take 2 tabs daily x 5 days, then 1 tablet daily x 5 days 10 days Tobacco use date assessed: 09/09/23 Dental Screening Dental Screen Date: 09/09/23 Did you have a dental visit in the last 12 months?: Yes Did you have a dental problem in the last 6 months where you did not have access to dental care?: No Was dental information given to patient?: Patient has dentist HPI 8 month fu HPI Details Patient is 53-year-old female Patient have a history of hypertension, blood pressure is stable, she is on atenolol 50 mg Pulmonary nodule, patient has seen Dr. Dobson, she was prescribed doxycycline and prednisone which did help her with her cough But once she was done with the medication cough came back, I have sent another round of doxycycline and prednisone for her, she also have yellowish phlegm this time She is on montelukast and Symbicort She continued to feel shortness of breath Patient has seen Dr. Emery for thyroid nodule, still waiting for appointment with [facility] I have printed her medical record and handed to her so she can fax it over Meanwhile continue levothyroxine 50 mcg, she had TSH checked in June which was within normal limit Patient has gained 20 lb since April Has appointment in December [facility] Medical History Vitamin D deficiency Multinodular thyroid Hypothyroidism Surgical History Hx of cervical discectomy Hx of umbilical hernia repair Hx of cholecystectomy Hx of section Family History Mother Hypertension Father Hypertension High cholesterol Sister Thyroid cancer Social History Housing: House Alcohol intake: current Alcohol intake frequency: holidays/special occasions only Patient Tobacco Use Status: Never used Tobacco e-Cigarette/Vaping Use: Never Used Second Hand Smoke Exposure: No service: No Current occupational status: employed Cognitive needs: No Hearing needs: No Vision needs: Yes Questionnaire PHQ-9 Over the last 2 weeks, how often have you been bothered by any of the following problems? 1. Little interest or pleasure in doing things: not at all 2. Feeling down, depressed, or hopeless: not at all 3. Trouble falling or staying asleep, or sleeping too much: more than half the days 4. Feeling tired or having little energy: more than half the days 5. Poor appetite or overeating: not at all 6. Feeling bad about yourself - or that you are a failure or have let yourself or your family down: not at all 7. Trouble concentrating on things, such as reading the newspaper or watching television: not at all 8. Moving or speaking so slowly that other people could have noticed. Or the opposite - being so fidgety or restless that you have been moving around a lot more than usual: not at all 9. Thoughts that you would be better off or of hurting yourself in some way: not at all Total score: 4 Depression Screening Interpretation: Negative Depression Screening Done: Yes [id number] - PHQ-9 Billing: Yes Source: Developed by Drs. Don Moncada, Shalini Gutierrez, Hamlet Gordillo and colleagues, with an educational pratibha from [employer]. Thrive Questionnaire Date Thrive assessed: 05/27/22 AUDIT C Alcohol Use Questionnaire (AUDIT-C) 1. How often do you have a drink containing alcohol?: Never 3. How often do you have six or more drinks on one occasion?: Never Total Score: 0 Score Reviewed/Action Taken: Yes NALDO-7 AMB Questionnaire NALDO-7 Date NALDO - 7 assessed: 05/27/22 Source: Developed by Drs. Don Moncada, Shalini Gutierrez, Hamlet Gordillo and colleagues, with an educational pratibha from [employer]. Review of Systems Const Denies chills and Denies fever(s) ENT Denies epistaxis and Denies nasal discharge Card Denies chest pain Resp Denies hemoptysis GI Denies diarrhea and Denies nausea Skin/Breast Denies rash Neuro Reports no additional complaints Psych Reports no additional complaints Endo Reports no additional complaints Physical exam (Primary Care) Vital Signs: Last Vital Signs Pulse 78 09/09/23 15:26 BP 120/78 09/09/23 15:26 Pulse Ox 93 09/09/23 15:26 Oxygen Delivery Method Room Air 09/09/23 15:26 BMI result Body Mass Index 44.6 Tobacco/Smoking Status: Tobacco use Status Tobacco use date assessed 09/09/23 09/09/23 15:29 Patient Tobacco Use Status Never used Tobacco 09/09/23 15:29 e-Cigarette/Vaping Use Never Used 09/09/23 15:29 Depression Screening Interpretation: Negative Thrive Assessment: Date of Thrive Assessment Date Thrive assessed 05/27/22 09/09/23 15:29 Const General: cooperative, comfortable and no acute distress Orientation/consciousness: patient oriented x3 HENMT Head: Yes normocephalic Eyes General: appearance normal, both eyes and all related structures Neck Neck: Yes supple Resp Effort & Inspection: normal respiratory effort, no cough and no stridor Cardio Rhythm: regular rhythm Heart sounds: S1 normal heart sound present and S2 normal heart sound present Skin General skin exam: turgor normal Neuro General: patient oriented x3, tone normal and moves all extremities Extrem Right lower extremity: no edema Left lower extremity: no edema Assessment and Plan Assessment & Plan (1) Hypertension, essential: Code(s): I10 - Essential (primary) hypertension (2) Hypothyroidism: Code(s): E03.9 - Hypothyroidism, unspecified Qualifiers: Hypothyroidism type: unspecified Qualified Code(s): E03.9 - Hypothyroidism, unspecified (3) Environmental allergies: Code(s): Z91.09 - Other allergy status, other than to drugs and biological substances (4) Cervical lymphadenopathy: Code(s): R59.0 - Localized enlarged lymph nodes (5) Morbid obesity due to excess calories: Code(s): E66.01 - Morbid (severe) obesity due to excess calories (6) Pulmonary nodule: Code(s): R91.1 - Solitary pulmonary nodule (7) Thyroid nodule: Code(s): E04.1 - Nontoxic single thyroid nodule Plan Patient is 53-year-old female Patient have a history of hypertension, blood pressure is stable, she is on atenolol 50 mg Pulmonary nodule, patient has seen Dr. Dobson, she was prescribed doxycycline and prednisone which did help her with her cough But once she was done with the medication cough came back, I have sent another round of doxycycline and prednisone for her, she also have yellowish phlegm this time She is on montelukast and Symbicort She continued to feel shortness of breath Patient has seen Dr. Emery for thyroid nodule, still waiting for appointment with [facility] I have printed her medical record and handed to her so she can fax it over Meanwhile continue levothyroxine 50 mcg, she had TSH checked in June which was within normal limit Patient has gained 20 lb since April Has appointment in December Medications: Changed From doxycycline monohydrate 100 mg PO BID 14 days 28 tabs 0RF To doxycycline monohydrate 100 mg PO BID 10 days 20 tabs 0RF Refilled prednisone PO daily; Take 2 tabs daily x 5 days, then 1 tablet daily x 5 days 10 days 15 tabs 0RF Coding Level of Care Code Est Pt Level 4 (25791) Diagnoses Hypertension, essential I10 Hypothyroidism, unspecified type E03.9 Hypothyroidism type: unspecified Environmental allergies Z91.09 Cervical lymphadenopathy R59.0 Morbid obesity due to excess calories E66.01 Pulmonary nodule R91.1 Thyroid nodule E04.1
== END 2023-09-09 18:51 | disposition home or self-care (01) ==
PROVIDERS: PCP Internal Medicine; Visit Provider Internal Medicine
DX: I10 Essential (primary) hypertension (principal); E66.01 Morbid (severe) obesity due to excess calories; Z68.41 Body mass index [BMI] 40.0-44.9, adult; E03.9 Hypothyroidism, unspecified; Z91.09 Other allergy status, other than to drugs and biological substances; R59.0 Localized enlarged lymph nodes; R91.1 Solitary pulmonary nodule; E04.1 Nontoxic single thyroid nodule
CPT/HCPCS: 99214

== ENCOUNTER 2023-10-16 06:58 | Day surgery (SDC) | payer BC, SELFPAY ==
--- NOTE | 2023-10-14 13:10 | P.CONAN_ITS ---
Documented by User: Erica Tena NP 10/14/23 13:14 HPI - Anesthesia Eval Consult details Narrative: 53yo F for Colonoscopy Following with [facility] for observation of posterior mediasteinal mass PMFSH Active Problems Active Problems: All Active Problems Schwannoma (Acute) Pulmonary nodule (Acute) Electrolyte abnormality (Acute) Hospital discharge follow-up (Acute) Morbid obesity due to excess calories (Acute) Hiatal hernia (Acute) Cervical lymphadenopathy (Acute) Chest pain (Acute) Colon cancer screening (Acute) Change in mole (Acute) Obesity due to excess calories (Acute) Upper respiratory tract infection (Acute) Vitamin D deficiency (Acute) Multinodular thyroid (Acute) Thyroid nodule (Acute) Family history of thyroid cancer (Acute) Difficulty swallowing (Acute) Knee pain, left (Acute) Shortness of breath (Acute) Coughing (Acute) Acute bronchitis (Acute) Pre-op evaluation (Acute) Cervical stenosis of spinal canal (Acute) Cervical neck pain with evidence of disc disease (Acute) Encounter for routine gynecological examination (Acute) Encounter for general adult medical examination with abnormal findings (Acute) Acute sinusitis (Acute) Asthma (Acute) Right upper quadrant pain (Acute) Environmental allergies (Acute) Headache syndrome (Acute) Obesity, morbid, BMI 40.0-49.9 (Acute) Hypertension, essential (Acute) Knee injury (Acute) Hypothyroidism (Acute) Past Medical History Medical History Vitamin D deficiency Multinodular thyroid Hypothyroidism Family History Family History Mother Hypertension Father Hypertension High cholesterol Sister Thyroid cancer Surgical History Surgical History Hx of cervical discectomy Hx of umbilical hernia repair Hx of cholecystectomy Hx of section Social History Social History Housing: House Alcohol intake: current Alcohol intake frequency: holidays/special occasions only Patient Tobacco Use Status: Never used Tobacco e-Cigarette/Vaping Use: Never Used Second Hand Smoke Exposure: No Use of substances other than those prescribed or required for medical reasons: No Are you DNR?: No Advance Directives: No Advance Directives Information Provided: Yes service: No Current occupational status: employed Cognitive needs: No Hearing needs: No Vision needs: Yes Meds Allergies Allergy/AdvReac Type Severity Reaction Status Date / Time environmental allergies Allergy Unknown unknown Uncoded 10/16/23 07:18 From Cymbalta Allergy Unknown RASH Uncoded 10/16/23 07:18 tress, pollen,mold, dust,pet Allergy Unknown Unknown Uncoded 10/16/23 07:18 d Home Medications ?Medication ?Instructions ?Recorded ?Confirmed ?Last Taken ?Type nebulizers 08/14/23 10/16/23 Unknown History Exam Narrative Narrative: EKG 07/2023 from [facility] Ventricular Rate: 92 BPM Atrial Rate: 92 BPM P-R Interval: 140 ms QRS Duration: 70 ms Q-T Interval: 376 ms QTC Calculation(Bazett): 464 ms P Goshen: 83 degrees R Goshen: 21 degrees T Goshen: 83 degrees Normal sinus rhythm Nonspecific ST abnormality Abnormal ECG When compared with ECG of 29-NOV-2018 17:12, No significant change was found Confirmed by Nelson Perea ([id number]) on 08/06/2023 8:02:[address] Angio 07/2023 from [facility] IMPRESSION: Evaluation is mildly limited by motion artifact and incomplete opacification of the pulmonary arteries with contrast. No evidence of pulmonary embolism to the lobar level. Nondiagnostic evaluation of segmental and subsegmental pulmonary arterial branches. Soft tissue 1.9 cm nodule which appears to arise from the left paravertebral pleura. Findings could represent solitary fibrous tumor or small intercostal nerve schwannoma or duplication cyst. MRI with contrast is recommended for further evaluation. Assessment and Plan Assessment Anesthesia Assessment: Chart Reviewed Documented by User: Vivi Orellana MD 10/16/23 08:39 [facility] Past Medical History Medical History Vitamin D deficiency Multinodular thyroid Hypothyroidism Family History Family History Mother Hypertension Father Hypertension High cholesterol Sister Thyroid cancer Surgical History Surgical History Hx of cervical discectomy Hx of umbilical hernia repair Hx of cholecystectomy Hx of section History of Problems with Anesthesia: No Social History Social History Housing: House Alcohol intake: current Alcohol intake frequency: holidays/special occasions only Patient Tobacco Use Status: Never used Tobacco e-Cigarette/Vaping Use: Never Used Second Hand Smoke Exposure: No Use of substances other than those prescribed or required for medical reasons: No Are you DNR?: No Advance Directives: No Advance Directives Information Provided: Yes service: No Current occupational status: employed Cognitive needs: No Hearing needs: No Vision needs: Yes Meds Allergies Allergy/AdvReac Type Severity Reaction Status Date / Time environmental allergies Allergy Unknown unknown Uncoded 10/16/23 07:18 From Cymbalta Allergy Unknown RASH Uncoded 10/16/23 07:18 tress, pollen,mold, dust,pet Allergy Unknown Unknown Uncoded 10/16/23 07:18 d Home Medications ?Medication ?Instructions ?Recorded ?Confirmed ?Last Taken ?Type nebulizers 08/14/23 10/16/23 Unknown History Exam Airway Mallampati Class: II TM Dist: >3cm Neck ROM: Full Loose/Missing/Broken Teeth: No Heart: RRR Lungs: CTA Assessment and Plan Assessment Anesthesia Assessment: Anesthesia Plan Discussed Final Anesthetic Review History of Problems with Anesthesia: No NPO: Yes ASA Class: III Final Preanesthetic Review: Meds/Allgs Chart Reviewed, Consent Obtained/Reviewed and Anes Risks/Benef Reviewed Patient Risk: Intermediate Procedure Risk: Low Anesthetic Plan Anesthetic Plan: MAC: Disposition: Standard PACU
--- NOTE | 2023-10-16 06:05 | P.HPSUR_ITS ---
Pre-Procedural Eval Section A - 24 Hr Update-Section A only Date of Service: 10/16/23 Section B - Complete if H&P > 30 days Chief Complaint: Encounter for screening for malignant neoplasm of Relevant Family History (Specify if Yes): No Relevant Social History: None Present Medications: see Short Stay Collaborative assessment Medical History: Significant History (Hypothyroidism Multinodular thyroid Emily min D deficiency) History of Previous Operations: Relevant previous surgery/procedure and date(s) (Hx of cervical discectomy Hx of umbilical hernia repair Hx of cholecystectomy Hx of section) Allergies: Allergies Allergy/AdvReac Type Severity Reaction Status Date / Time environmental allergies Allergy Unknown unknown Uncoded 08/14/23 14:59 From Cymbalta Allergy Unknown RASH Uncoded 08/14/23 14:59 tress, pollen,mold, dust,pet Allergy Unknown Unknown Uncoded 08/14/23 14:59 d Review of Systems Sugical H&P ROS: Negative: Constitution, Cardiovascular, Respiratory, Neurological, Psychiatric, Hem-Onc, Allergic/Immunologic, Gastrointestinal, Genitourinary, Musculoskeletal, Integumentary, Endocrine and Eyes/Ears/Nose/Throat Exam Surgical H&P Exam: Normal: HEENT, Normal: Heart, Normal: Lungs, Normal: Extremities, Normal: Abdomen, Normal: Skin and Normal: Neurological Plan Diagnosis/Plan: Unchanged I have reviewed the history and physical and performed a pertinent physical examination on my patient. No changes have occurred unless specified. Time Spent With Patient Time: Total time managing care of this patient today ____ minutes.
[2023-10-16 07:24] VITALS: BP 124/79; PULSE 90; RESP 18; TEMP 36.1; O2SAT 95; BMI 43.9
[2023-10-16] MEDS: Lactated Ringers 1,000 ML 100 ML IVCONT (07:55)
--- NOTE | 2023-10-16 08:32 | P.OPN-COLO_ITS ---
Colonoscopy Operative Note Operative Note Date of Service: 10/16/23 Narrative: Operative Information Procedure Description: Colonoscopy Indication: screening Anesthesia: MAC COLONOSCOPY Instrument: Olympus variable stiffness pediatric scope 190L Colonoscopy Monitoring: Vital signs and clinical assessment, continuous EKG monitoring, Pulse oximetry, Carbon Dioxide monitoring and blood pressure monitoring were done throughout the procedure. Colon withdrawal time was 9 minutes. Procedure: The patient was placed in the left lateral decubitis position and pre-procedure medications were administered. After a digital rectal examination of the ano-rectum, the video colonoscope was inserted into the rectum and advanced through the colon to the cecum/TI. The colonoscope was slowly withdrawn in a retrograde panoramic fashion and the colon mucosa was carefully examined including a retroflexed view of the rectum. Findings and interventions are described below. Procedure Difficulty: easy Findings: Terminal Ileum-normal Cecum: 5-6 mm sessile polyp removed with cold snare Right sided retroflexion- normal Ascending Colon: normal Transverse Colon -normal Descending Colon:normal Sigmoid Colon: mild diverticulosis, 5-7 mm sessile polyp removed with cold snare Rectum: Retroflexion with small internal hemorrhoids seen, grade I, 5-7 mm sessile polyp removed with cold snare, x 1 clip applied for hemostasis Anorectum - normal Intervention: cold snare and clip Colon preparation: [place] Bowel Preparation Scale Right colon; 3 Transverse colon: 3 Left colon; 3 (0 = Unprepared colon segment with mucosa not seen due to solid stool that cannot be cleared. 1 = Portion of mucosa of the colon segment seen, but other areas of the colon segment not well seen due to staining, residual stool and/or opaque liquid. 2 = Minor amount of residual staining, small fragments of stool and/or opaque liquid, but mucosa of colon segment seen well. 3 = Entire mucosa of colon segment seen well with no residual staining, small fragments of stool or opaque liquid) Impression and Post Procedure Diagnosis: diverticulosis colon polyps internal hemorrhoids Plan: High fiber diet leaflet Avoid straining at stool, epsom salts and sitz bath, anusol supps or cream Repeat Colonoscopy in 5-7 years if pre cancerous polyps, 10 yrs if non pre cancerous or earlier if clinically indicated Above findings were reviewed with the patient and relevant handouts were provided if indicated.
[2023-10-16 09:11] VITALS: BP 97/44; PULSE 67; RESP 16; TEMP 36.1; O2SAT 97
[2023-10-16 09:26] VITALS: BP 102/54; PULSE 66; RESP 16; TEMP 36.1; O2SAT 96
== END 2023-10-16 10:00 | disposition home or self-care (01) ==
PROVIDERS: PCP Internal Medicine; Visit Provider Internal Medicine Gastroenterology
PROC: 0DJD8ZZ Inspection of Lower Intestinal Tract, Via Natural or Artificial Opening Endoscopic (ICD-10-PCS; CPT 45378; principal; 2023-10-16 08:30)
DX: Z12.11 Encounter for screening for malignant neoplasm of colon (principal); K51.40 Inflammatory polyps of colon without complications; K63.5 Polyp of colon; K62.1 Rectal polyp; K57.30 Diverticulosis of large intestine without perforation or abscess without bleeding; K64.0 First degree hemorrhoids
CPT/HCPCS: 45385; 88305; J2704

== ENCOUNTER → 2023-10-16 06:58 | Outpatient (BNV) | payer BC, SELFPAY | PROVIDERS: PCP Internal Medicine; Visit Provider Internal Medicine Gastroenterology | DX: Z12.11 Encounter for screening for malignant neoplasm of colon (principal); K62.1 Rectal polyp; K63.5 Polyp of colon; K57.30 Diverticulosis of large intestine without perforation or abscess without bleeding | CPT/HCPCS: 45385 ==

== ENCOUNTER 2023-10-19 15:21 | Outpatient (AMB) | payer BC, SELFPAY ==
[2023-10-19 15:36] VITALS: PULSE 71; O2SAT 96; BMI 43.9
--- NOTE | 2023-10-19 15:36 | MHC.OFFVIS ---
Vital Signs 10/19/23 15:36 Height 5 ft 2 in Weight 240 lb BMI 43.9 Pulse 71 Pulse Source Pulse Oximeter Pulse Oximetry (%) 96 Oxygen Delivery Method Room Air Intake Visit Reasons: Pulmonary Nodule Principal Librarian Required: No Allergies environmental allergies Allergy (Unknown, Uncoded 10/19/23 15:37) unknown From Cymbalta Allergy (Unknown, Uncoded 10/19/23 15:37) RASH tress, pollen,mold, dust,pet d Allergy (Unknown, Uncoded 10/19/23 15:37) Unknown HPI Comments Details: The patient is a 53 year woman with a known history of asthma presenting with worsening history of cough in addition to an abnormal CT scan. the patient states that her asthma was in good control until recently when she started developing a URI. I was back in May. The patient was noted to have significant chest tightness and wheezing. She was started on prednisone. After she had a congested cough. Moderate severity. Still lingering. Feels that she is more congested and therefore has some chest tightness and difficulty ambulating. This is typical for her after a respiratory virus. The patient in meantime did undergo an imaging study including CT scan of the chest which was personally by me. The patient has a pleural-based density in the medial aspect of the back in the distribution of a potential schwannoma. Other potential conditions in the differential include a benign fibrous tumor of the pleura. Based on the location of it and size I do believe that the thoracic surgery consultation be warranted. In the meantime will going to go ahead and treat her for postviral bacterial infection with doxycycline and also optimize respiratory therapy. Based on my examination I do not believe she needs prednisone right now. If her symptoms worsen she can always call and request a prescription to the pharmacy. 10/19/2023 The patient is here for a follow up visit. She recently underwent a colonoscopy. Afterwards, felt ok, but this morning she woke up with sore throat and chest congestion. +productive cough and chest tightness. Denies any fevers. She also has been aggravated by the pollen levels. She did consult with Thoracic surgery and will have her surgery the end of the summer. She has been using her respiratory therapy with good effect. [facility] Medical History Vitamin D deficiency Multinodular thyroid Hypothyroidism Surgical History Hx of cervical discectomy Hx of umbilical hernia repair Hx of cholecystectomy Hx of section Family History Mother Hypertension Father Hypertension High cholesterol Sister Thyroid cancer Social History Housing: House Alcohol intake: current Alcohol intake frequency: holidays/special occasions only Patient Tobacco Use Status: Never used Tobacco e-Cigarette/Vaping Use: Never Used Second Hand Smoke Exposure: No service: No Current occupational status: employed Cognitive needs: No Hearing needs: No Vision needs: Yes Review of Systems Const Denies chills and Denies fever(s) ENT Denies epistaxis, Denies nasal discharge and Reports sore throat Card Reports dyspnea on exertion Resp Reports chest congestion, Reports cough, Denies hemoptysis, Reports dyspnea on exertion and Reports wheezing GI Denies diarrhea and Denies nausea Skin/Breast Denies rash Neuro Reports no additional complaints Psych Reports no additional complaints Endo Reports no additional complaints Aller/Immun Reports wheezing Physical Exam Vital Signs: Last Vital Signs Pulse 71 10/19/23 15:36 Pulse Ox 96 10/19/23 15:36 Oxygen Delivery Method Room Air 10/19/23 15:36 BMI result Body Mass Index 43.9 Const General: cooperative and healthy appearing Nutritional Appearance: well nourished Orientation/consciousness: patient oriented x3 Limitations: no limitations HEENT Head: Yes normal to inspection Eyes General: appearance normal, both eyes and all related structures Neck Neck: Yes normal visual inspection Chest Chest palpation & inspection: normal palpation of entire chest wall Resp Effort & Inspection: normal respiratory effort and prolonged expiratory phase Auscultation: wheezes and diminished lung sounds Neuro General: patient oriented x3 Assessment & Plan Assessment & Plan (1) Pulmonary nodule: Code(s): R91.1 - Solitary pulmonary nodule Category: Medical (2) Asthma: Code(s): J45.909 - Unspecified asthma, uncomplicated Category: Medical Qualifiers: Asthma complication type: with acute exacerbation Asthma persistence: persistent Asthma severity: moderate Qualified Code(s): J45.41 - Moderate persistent asthma with (acute) exacerbation (3) Tracheobronchitis: Code(s): J40 - Bronchitis, not specified as acute or chronic Category: Medical Plan continue Symbicort BID SHIRLEY as needed start prednisone taper start Augmentin continue zyrtec Thoracic surgery re: pleural based nodule ?schwannoma. will need aresection F/U 4-6 months Medications: New prednisone PO daily; Take 2 tabs daily x 5 days, then 1 tablet daily x 5 days 15 tabs 0RF 10 days amoxicillin-pot clavulanate 875-125 mg 1 tab PO BID 20 tabs 0RF 10 days Coding Level of Care Code Est Pt Level 4 (00465) Diagnoses Pulmonary nodule R91.1 Moderate persistent asthma with acute exacerbation J45.41 Asthma complication type: with acute exacerbation Asthma persistence: persistent Asthma severity: moderate Tracheobronchitis J40 Time Spent (min) 17
== END 2023-10-19 16:01 | disposition home or self-care (01) ==
PROVIDERS: PCP Internal Medicine; Visit Provider Hospitalist
DX: R91.1 Solitary pulmonary nodule (principal); J45.41 Moderate persistent asthma with (acute) exacerbation; J40 Bronchitis, not specified as acute or chronic
CPT/HCPCS: 99214

== ENCOUNTER → 2023-10-19 15:21 | Outpatient (BNVA) | payer BC, SELFPAY | PROVIDERS: PCP Internal Medicine; Visit Provider Hospitalist ==

== ENCOUNTER 2024-01-30 10:04 | Outpatient (REF) | payer BC, SELFPAY ==
--- NOTE | ~2024-01-30 | MM_ITS ---
EXAMINATION: MM SCREENING DIGITAL BREAST TOMOSYNTHESIS, BILATERAL CLINICAL INFORMATION: Screening. Asymptomatic. COMPARISON: Mammography: Comparison is made with available priors TECHNIQUE: Digital breast mammography with tomosynthesis is performed in both the craniocaudal and mediolateral oblique views along with computer-aided detection (CAD). FINDINGS: There are scattered areas of fibroglandular density (ACR BI-RADS breast composition Category b). There are no significant masses, abnormal calcifications, or other abnormalities. MM/MM tomosynthesis screening BI IMPRESSION: No mammographic evidence of malignancy. ASSESSMENT: BI-RADS BI-RADS 1 - Negative RECOMMENDATION: Routine annual mammography screening. 1 year F/U This examination should not preclude the clinical evaluation of a suspicious palpable abnormality. This patient's information was entered into a reminder system with a target due date for their next mammogram. Electronically signed by: Gladis Ag DO 02/12/2024 08:55 AM EDT
== END 2024-01-30 10:05 | disposition home or self-care (01) ==
LOC: HO.MAMMO 10:04
PROVIDERS: PCP Internal Medicine; Visit Provider Internal Medicine
DX: Z12.31 Encounter for screening mammogram for malignant neoplasm of breast (principal)
CPT/HCPCS: 77063; 77067

== ENCOUNTER → 2024-01-30 10:30 | Outpatient (BNV) | payer BC, SELFPAY | PROVIDERS: PCP Internal Medicine; Visit Provider Internal Medicine | DX: Z12.31 Encounter for screening mammogram for malignant neoplasm of breast (principal) | CPT/HCPCS: 77063; 77067 ==

== ENCOUNTER 2024-03-01 13:47 | Outpatient (AMB) | payer BC, SELFPAY ==
[2024-03-01 13:50] VITALS: BP 124/76; PULSE 77; O2SAT 98; BMI 45.4
--- NOTE | 2024-03-01 13:50 | A.OFFPC_ITS ---
Vital Signs 03/01/24 13:50 Height 5 ft 2 in Weight 248 lb BMI 45.4 BP 124/76 Blood Pressure Location Rt brachial Position Sitting Pulse 77 Pulse Source Pulse Oximeter Pulse Oximetry (%) 98 Oxygen Delivery Method Room Air Intake Visit Reasons: Annual PE Allergies environmental allergies Allergy (Unknown, Uncoded 10/19/23 15:37) unknown From Cymbalta Allergy (Unknown, Uncoded 10/19/23 15:37) RASH tress, pollen,mold, dust,pet d Allergy (Unknown, Uncoded 10/19/23 15:37) Unknown Medication List - Last Reconciled 03/01/24 by Kerri Otto MD albuterol sulfate 5 mg inhalation Q4H PRN albuterol sulfate 90 mcg/actuation (ProAir HFA) 1 inh inhalation QID PRN 30 days atenolol 50 mg PO DAILY bisacodyl (Dulcolax (bisacodyl)) 20 mg (4 x 5 mg) PO ONCE 1 day budesonide-formoterol 160-4.5 mcg/actuation (Symbicort) 2 puffs inhalation BID 30 days cetirizine (Zyrtec) 10 mg PO DAILY PRN levothyroxine 175 mcg PO DAILY montelukast 10 mg PO DAILY 90 days nebulizers As directed sumatriptan succinate 25 mg PO Q2-4H PRN 90 days Tobacco use date assessed: 03/01/24 Dental Screening Dental Screen Date: 03/01/24 Did you have a dental visit in the last 12 months?: Yes Did you have a dental problem in the last 6 months where you did not have access to dental care?: No Was dental information given to patient?: Patient has dentist HPI Annual PE HPI Details Patient is a 53-year-old morbidly obese female came in for physical exam Last patient underwent total thyroidectomy and some of the lymph nodes were removed due to thyroid cancer She is currently on levothyroxine 175 mcg from this office Patient tells me that multiple family members are sick at home with cough and congestion and are on antibiotic She has started having pain in her ears and throat and now also have cough I have sent antibiotic for patient does well Surgery was performed in [place] Patient also had lung nodule removed in January which was benign left-sided Mammogram was January of this year Patient also had colonoscopy earlier this year Established with OBGYN Medication list reviewed Refills sent She will return for follow-up in 3 months [facility] Medical History Vitamin D deficiency Multinodular thyroid Hypothyroidism Surgical History Hx of cervical discectomy Hx of umbilical hernia repair Hx of cholecystectomy Hx of section Family History Mother Hypertension Father Hypertension High cholesterol Sister Thyroid cancer Social History Housing: House Alcohol intake: current Alcohol intake frequency: holidays/special occasions only Patient Tobacco Use Status: Never used Tobacco e-Cigarette/Vaping Use: Never Used Second Hand Smoke Exposure: No service: No Current occupational status: employed Cognitive needs: No Hearing needs: No Vision needs: Yes Questionnaire PHQ-9 Over the last 2 weeks, how often have you been bothered by any of the following problems? 1. Little interest or pleasure in doing things: not at all 2. Feeling down, depressed, or hopeless: not at all 3. Trouble falling or staying asleep, or sleeping too much: nearly every day 4. Feeling tired or having little energy: more than half the days 5. Poor appetite or overeating: not at all 6. Feeling bad about yourself - or that you are a failure or have let yourself or your family down: not at all 7. Trouble concentrating on things, such as reading the newspaper or watching television: not at all 8. Moving or speaking so slowly that other people could have noticed. Or the opposite - being so fidgety or restless that you have been moving around a lot more than usual: not at all 9. Thoughts that you would be better off or of hurting yourself in some way: not at all Total score: 5 Depression Screening Interpretation: Negative Depression Screening Done: Yes 47092 - PHQ-9 Billing: Yes Source: Developed by Drs. Don Moncada, Shalini Gutierrez, Hamlet Gordillo and colleagues, with an educational pratibha from [employer]. Thrive Questionnaire Date Thrive assessed: 03/01/24 I am a: Patient What is your living situation today?: I have a steady place to live Within the past 12 months, did the food you bought not last and you didn't have the money to get more?: I choose not to answer this question Within the past 12 months, did you worry whether your food would run out before you got money to buy more?: I choose not to answer this question Do you have trouble paying for medicines?: No Do you have trouble getting transportation to medical appointments?: No Do you have trouble paying your heating and electricity bill?: No Do you have trouble taking care of your child, family member or friend?: No Do you have trouble with day-to-day activities such as bathing, preparing meals, shopping, managing finances, etc.?: No Are you currently unemployed and looking for a job?: No Are you interested in more education?: No Please select the resources that you would like help with: None Currently or been in a relationship where the following occur: I choose not to answer THRIVE Score: 0 AUDIT C Alcohol Use Questionnaire (AUDIT-C) 1. How often do you have a drink containing alcohol?: Never 3. How often do you have six or more drinks on one occasion?: Never Total Score: 0 Score Reviewed/Action Taken: Yes NALDO-7 AMB Questionnaire NALDO-7 Date NALDO - 7 assessed: 03/01/24 Feeling nervous, anxious, or on edge: 0 = Not at all Not being able to stop or control worryin = Not at all Worrying too much about different things: 0 = Not at all Trouble relaxin = Not at all Being so restless that it is hard to sit still: 0 = Not at all Becoming easily annoyed or irritable: 0 = Not at all Feeling afraid as if something awful might happen: 0 = Not at all Total NALDO-7 score (0-4 normal; 5-9 mild; 10-14 moderate; 15-21 severe): 0 Source: Developed by Drs. Don Moncada, Shalini Gutierrez, Hamlet Gordillo and colleagues, with an educational pratibha from [employer]. NALDO-7 Assessment Billing NALDO-7 Assessment Tool: NALDO-7 Assessment 79272 Review of Systems Const Denies chills, Denies fever(s) and Denies headache(s) Eyes Denies blurry vision ENT Denies headache(s), Denies nasal discharge, Denies nasal obstruction, Denies odynophagia and Denies sinus pain Card Denies chest pain at rest and Denies chest pain with activity Resp Denies hemoptysis GI Denies diarrhea, Denies odynophagia, Denies vomiting and Denies hematemesis Reports as per HPI Musc Denies abnormal gait Skin/Breast Reports as per HPI Neuro Denies Neuro-related abnormal movements, Denies Abnormal speech present, Denies abnormal gait, Denies headache(s) and Denies Sensory deficit (Neuro) Psych Denies mood swings and Denies paranoia Endo Reports as per HPI Dany/Lymph Reports as per HPI Aller/Immun Reports as per HPI Physical exam (Primary Care) Vital Signs: Last Vital Signs Pulse 77 03/01/24 13:50 BP 124/76 03/01/24 13:50 Pulse Ox 98 03/01/24 13:50 Oxygen Delivery Method Room Air 03/01/24 13:50 BMI result Body Mass Index 45.4 Tobacco/Smoking Status: Tobacco use Status Tobacco use date assessed 03/01/24 03/01/24 13:51 Patient Tobacco Use Status Never used Tobacco 03/01/24 13:51 e-Cigarette/Vaping Use Never Used 03/01/24 13:51 PHQ-9: PHQ-9 Score PHQ-9: Total score 5 03/01/24 13:51 Depression Screening Interpretation: Negative Thrive Assessment: Date of Thrive Assessment Date Thrive assessed 03/01/24 03/01/24 13:51 Currently or been in a relationship where the following occur: I choose not to answer Const General: cooperative, comfortable and no acute distress Orientation/consciousness: patient oriented x3 HENMT Other: Positive erythema left ear Head: Yes normocephalic and Yes atraumatic Eyes General: appearance normal, both eyes and all related structures Pupils: Equal, round and reactive pupils present EOM: EOMs intact bilaterally Neck Other: Neck wound healing well Resp Effort & Inspection: normal respiratory effort and able to speak in complete sentences Auscultation: clear to auscultation bilaterally Cardio Heart sounds: S1 normal heart sound present and S2 normal heart sound present GI Palpation (GI): Soft to palpation and nontender Auscultation: normal bowel sounds General: Yes no CVA tenderness Back/Spine/Pelvis Back: no CVA tenderness Skin General skin exam: elasticity normal and turgor normal Neuro General: patient oriented x3 and gait normal Cranial nerves: Yes Equal, round and reactive pupils present Speech: No Abnormal speech present Sensory Exam: No Sensory deficit (Neuro) Extrem General: Yes normal exam except as noted and No edema Coding Level of Care Code Est Pt Level 3 (48157) Est Pt Prev Care 40-64y(94703) Diagnoses Encounter for general adult medical examination with abnormal findings Z00.01 Upper respiratory tract infection, unspecified type J06.9 URI type: unspecified URI Hypertension, essential I10 Environmental allergies Z91.09 Other specified hypothyroidism E03.8 Morbid obesity due to excess calories E66.01 Vitamin D deficiency E55.9 Status post complete thyroidectomy E89.0 Additional Codes NALDO-7 Assessment Billing - NALDO-7 Assessment Tool: NALDO-7 Assessment 69549 ([id number]) Assessment & Plan Assessment & Plan (1) Encounter for general adult medical examination with abnormal findings: Code(s): Z00.01 - Encounter for general adult medical examination with abnormal findings Category: Medical (2) Upper respiratory tract infection: Code(s): J06.9 - Acute upper respiratory infection, unspecified Category: Medical Qualifiers: URI type: unspecified URI Qualified Code(s): J06.9 - Acute upper respiratory infection, unspecified (3) Hypertension, essential: Code(s): I10 - Essential (primary) hypertension Category: Medical (4) Environmental allergies: Code(s): Z91.09 - Other allergy status, other than to drugs and biological substances Category: Medical (5) Other specified hypothyroidism: Code(s): E03.8 - Other specified hypothyroidism Category: Medical (6) Morbid obesity due to excess calories: Code(s): E66.01 - Morbid (severe) obesity due to excess calories Category: Medical (7) Vitamin D deficiency: Code(s): E55.9 - Vitamin D deficiency, unspecified Category: Medical (8) Status post complete thyroidectomy: Comment: Secondary to thyroid cancer 03/06/2024 Code(s): E89.0 - Postprocedural hypothyroidism Category: Surgical Plan Patient is a 53-year-old morbidly obese female came in for physical exam Last patient underwent total thyroidectomy and some of the lymph nodes were removed due to thyroid cancer She is currently on levothyroxine 175 mcg from this office Patient tells me that multiple family members are sick at home with cough and congestion and are on antibiotic She has started having pain in her ears and throat and now also have cough I have sent antibiotic for patient does well Surgery was performed in [place] Patient also had lung nodule removed in January which was benign left-sided Mammogram was January of this year Patient also had colonoscopy earlier this year Asthma is stable, patient is no longer seeing Dr. Dobson Inhalers from PCP office Established with OBGYN Medication list reviewed Refills sent She will return for follow-up in 3 months Orders: Orders Hemoglobin A1c Today E03.8 - Other specified hypothyroidism, E55.9 - Vitamin D deficiency, unspecified, E66.01 - Morbid (severe) obesity due to excess calories, I10 - Essential (primary) hypertension, Z00.01 - Encounter for general adult medical examination with abnormal findings, Z91.09 - Other allergy status, other than to drugs and biological substances Complete Blood Count Auto Diff Today E03.8 - Other specified hypothyroidism, E55.9 - Vitamin D deficiency, unspecified, E66.01 - Morbid (severe) obesity due to excess calories, I10 - Essential (primary) hypertension, Z00.01 - Encounter for general adult medical examination with abnormal findings, Z91.09 - Other allergy status, other than to drugs and biological substances LDL Cholesterol Direct Today E03.8 - Other specified hypothyroidism, E55.9 - Vitamin D deficiency, unspecified, E66.01 - Morbid (severe) obesity due to excess calories, I10 - Essential (primary) hypertension, Z00.01 - Encounter for general adult medical examination with abnormal findings, Z91.09 - Other allergy status, other than to drugs and biological substances Comprehensive Met. Panel Today E03.8 - Other specified hypothyroidism, E55.9 - Vitamin D deficiency, unspecified, E66.01 - Morbid (severe) obesity due to excess calories, I10 - Essential (primary) hypertension, Z00.01 - Encounter for general adult medical examination with abnormal findings, Z91.09 - Other allergy status, other than to drugs and biological substances TSH reflex Free T4 Today E03.8 - Other specified hypothyroidism, E55.9 - Vitamin D deficiency, unspecified, E66.01 - Morbid (severe) obesity due to excess calories, I10 - Essential (primary) hypertension, Z00.01 - Encounter for general adult medical examination with abnormal findings, Z91.09 - Other allergy status, other than to drugs and biological substances Medications: New levothyroxine 175 mcg PO DAILY 90 tabs 0RF cetirizine (Zyrtec) 10 mg PO DAILY PRN 90 tabs 0RF allergy symptoms azithromycin Take 2 tablets today then 1 daily 250 mg PO ONCE 5 days 6 tabs 0RF J06.9 - Acute upper respiratory infection, unspecified Changed From albuterol sulfate 90 mcg/actuation (ProAir HFA) 1 inh inhalation QID 30 days PRN 18 grams 2RF shortness of breath or wheezing To albuterol sulfate 90 mcg/actuation 1 inh inhalation QID 30 days PRN 18 grams 2RF shortness of breath or wheezing Refilled budesonide-formoterol 160-4.5 mcg/actuation (Symbicort) 2 puffs inhalation BID 30 days 10.2 grams 11RF J44.89 - Other specified chronic obstructive pulmonary disease montelukast 10 mg PO DAILY 90 days 90 tabs 1RF sumatriptan succinate do not exceed 8 doses per 24 hrs 25 mg PO Q2-4H 90 days PRN 30 tabs 0RF migraine headache atenolol 50 mg PO DAILY 90 tabs 0RF
== END 2024-03-01 15:08 | disposition home or self-care (01) ==
PROVIDERS: PCP Internal Medicine; Visit Provider Internal Medicine
DX: Z00.00 Encounter for general adult medical examination without abnormal findings (principal); J06.9 Acute upper respiratory infection, unspecified; E66.01 Morbid (severe) obesity due to excess calories; Z68.42 Body mass index [BMI] 45.0-49.9, adult; I10 Essential (primary) hypertension; Z91.09 Other allergy status, other than to drugs and biological substances; E03.8 Other specified hypothyroidism; E55.9 Vitamin D deficiency, unspecified; E89.0 Postprocedural hypothyroidism

== ENCOUNTER → 2024-03-01 13:47 | Outpatient (BNVA) | payer BC, SELFPAY | PROVIDERS: PCP Internal Medicine; Visit Provider Internal Medicine | DX: Z00.01 Encounter for general adult medical examination with abnormal findings (principal); J06.9 Acute upper respiratory infection, unspecified; I10 Essential (primary) hypertension; E66.01 Morbid (severe) obesity due to excess calories; Z68.42 Body mass index [BMI] 45.0-49.9, adult; E55.9 Vitamin D deficiency, unspecified; E89.0 Postprocedural hypothyroidism; Z91.09 Other allergy status, other than to drugs and biological substances; Z79.899 Other long term (current) drug therapy | CPT/HCPCS: 96127 ==

== ENCOUNTER 2024-03-24 08:27 | Outpatient (AMB) | payer BC, SELFPAY ==
--- NOTE | 2024-03-24 08:28 | MHC.PC.OV ---
Intake Visit Reasons: Discuss weight loss options Android [phone] Allergies environmental allergies Allergy (Unknown, Uncoded 10/19/23 15:37) unknown From Cymbalta Allergy (Unknown, Uncoded 10/19/23 15:37) RASH tress, pollen,mold, dust,pet d Allergy (Unknown, Uncoded 10/19/23 15:37) Unknown Medication List - Last Reconciled 03/24/24 by Kerri Otto MD albuterol sulfate 5 mg inhalation Q4H PRN albuterol sulfate 90 mcg/actuation 1 inh inhalation QID PRN 30 days atenolol 50 mg PO DAILY bisacodyl (Dulcolax (bisacodyl)) 20 mg (4 x 5 mg) PO ONCE 1 day budesonide-formoterol 160-4.5 mcg/actuation (Symbicort) 2 puffs inhalation BID 30 days cetirizine (Zyrtec) 10 mg PO DAILY PRN levothyroxine 175 mcg PO DAILY montelukast 10 mg PO DAILY 90 days nebulizers As directed sumatriptan succinate 25 mg PO Q2-4H PRN 90 days Tobacco use date assessed: 03/24/24 Dental Screening Dental Screen Date: 03/24/24 Did you have a dental visit in the last 12 months?: Yes Did you have a dental problem in the last 6 months where you did not have access to dental care?: No Was dental information given to patient?: Patient has dentist HPI Discuss weight loss options Android [phone] HPI Details Patient is a 53-year-old female this is a telemedicine conference Patient wanted to discuss semaglutide injection for weight loss However she has a history of thyroid cancer so that medication is not a suitable choice for the patient We talked about phentermine I gave her some information she will read about it Patient is requesting albuterol solution for the [email or web address] machine which I have sent for [facility] Medical History Vitamin D deficiency Multinodular thyroid Hypothyroidism Surgical History Hx of cervical discectomy Hx of umbilical hernia repair Hx of cholecystectomy Hx of section Family History Mother Hypertension Father Hypertension High cholesterol Sister Thyroid cancer Social History Housing: House Alcohol intake: current Alcohol intake frequency: holidays/special occasions only Patient Tobacco Use Status: Never used Tobacco e-Cigarette/Vaping Use: Never Used Second Hand Smoke Exposure: No service: No Current occupational status: employed Cognitive needs: No Hearing needs: No Vision needs: Yes Questionnaire Thrive Questionnaire Date Thrive assessed: 03/01/24 AUDIT C Alcohol Use Questionnaire (AUDIT-C) 1. How often do you have a drink containing alcohol?: Never 3. How often do you have six or more drinks on one occasion?: Never Total Score: 0 Score Reviewed/Action Taken: Yes NALDO-7 AMB Questionnaire NALDO-7 Date NALDO - 7 assessed: 03/01/24 Source: Developed by Drs. Don Moncada, Shalini Gutierrez, Hamlet Gordillo and colleagues, with an educational pratibha from [email or web address]. Review of Systems Const Denies chills and Denies fever(s) ENT Denies epistaxis and Denies nasal discharge Card Denies chest pain GI Denies diarrhea and Denies nausea Skin/Breast Denies rash Neuro Reports no additional complaints Psych Reports no additional complaints Endo Reports no additional complaints Physical exam (Primary Care) Tobacco/Smoking Status: Tobacco use Status Tobacco use date assessed 03/24/24 03/24/24 08:30 Patient Tobacco Use Status Never used Tobacco 03/24/24 08:30 e-Cigarette/Vaping Use Never Used 03/24/24 08:30 Thrive Assessment: Date of Thrive Assessment Date Thrive assessed 03/01/24 03/24/24 08:30 Telehealth Telehealth Telehealth Platform: [facility] Location of provider rendering services: practice address Location of patient: address on file Patient Identification confirmed using: Name, : Yes Telehealth method: voice only Patient verbally consented to treatment: Yes Patient verbally consented to billing insurance company: Yes Patient informed of any privacy concerns related to visit: Yes Minutes spent on Phone/Video with Pt.: 13 Coding Level of Care Code Tele Est Pt Level 3 (06208) Diagnoses Morbid obesity due to excess calories E66.01 Status post complete thyroidectomy E89.0 Shortness of breath R06.02 Assessment & Plan Assessment & Plan (1) Morbid obesity due to excess calories: Code(s): E66.01 - Morbid (severe) obesity due to excess calories Category: Medical (2) Status post complete thyroidectomy: Comment: Secondary to thyroid cancer 03/06/2024 Code(s): E89.0 - Postprocedural hypothyroidism Category: Surgical (3) Shortness of breath: Code(s): R06.02 - Shortness of breath Category: Medical Plan Patient is a 53-year-old female this is a telemedicine conference Patient wanted to discuss semaglutide injection for weight loss However she has a history of thyroid cancer so that medication is not a suitable choice for the patient We talked about phentermine I gave her some information she will read about it Patient is requesting albuterol solution for the [employer] machine which I have sent for her Medications: Refilled albuterol sulfate 2.5 mg (3 mL) inhalation QID 30 days 180 mL 1RF shortness of breath or wheezing
== END 2024-03-24 12:03 | disposition home or self-care (01) ==
LOC: HO.HMCC 08:27
PROVIDERS: PCP Internal Medicine; Visit Provider Internal Medicine
DX: E89.0 Postprocedural hypothyroidism (principal); R06.02 Shortness of breath; E66.01 Morbid (severe) obesity due to excess calories

== ENCOUNTER → 2024-03-24 08:27 | Outpatient (BNVA) | payer BC, SELFPAY | PROVIDERS: PCP Internal Medicine; Visit Provider Internal Medicine ==

== ENCOUNTER 2024-03-30 13:40 | Outpatient (AMB) | payer BC, SELFPAY ==
--- NOTE | 2024-03-30 13:40 | MHC.PC.OV ---
Vital Signs 03/30/24 13:41 Height 5 ft 2 in Weight 243 lb BMI 44.4 BP 120/74 Blood Pressure Location Rt brachial Position Sitting Pulse 90 Pulse Source Pulse Oximeter Pulse Oximetry (%) 96 Oxygen Delivery Method Room Air Intake Visit Reasons: Covid f/u Allergies environmental allergies Allergy (Unknown, Uncoded 03/30/24 13:42) unknown From Cymbalta Allergy (Unknown, Uncoded 03/30/24 13:42) RASH tress, pollen,mold, dust,pet d Allergy (Unknown, Uncoded 03/30/24 13:42) Unknown Medication List - Last Reconciled 03/30/24 by Kerri Otto MD albuterol sulfate 5 mg inhalation Q4H PRN albuterol sulfate 90 mcg/actuation 1 inh inhalation QID PRN 30 days albuterol sulfate 2.5 mg (3 mL) inhalation QID 30 days atenolol 50 mg PO DAILY bisacodyl (Dulcolax (bisacodyl)) 20 mg (4 x 5 mg) PO ONCE 1 day budesonide-formoterol 160-4.5 mcg/actuation (Symbicort) 2 puffs inhalation BID 30 days cetirizine (Zyrtec) 10 mg PO DAILY PRN levothyroxine 175 mcg PO DAILY meclizine 25 mg PO TID PRN montelukast 10 mg PO DAILY 90 days nebulizers As directed ondansetron HCl 4 mg PO Q8H sumatriptan succinate 25 mg PO Q2-4H PRN 90 days Tobacco use date assessed: 03/30/24 Dental Screening Dental Screen Date: 03/24/24 HPI Covid f/u HPI Details Patient is a 53-year-old female came in today to have a follow-up post hospital discharge Patient was seen at [facility] on March 25 when she presented with shortness a breath and dizziness And found to have a COVID infection Patient had workup done including CT scan head which was negative Chest x-ray did not show any pneumonia She was treated for COVID pneumonitis Eventually patient got better and was discharged on 03/28/2024 She continued to feel dizzy though, She was sent home with meclizine that did help along with Zofran as needed Patient says that she feels she is gradually getting better I have ordered vestibular physical therapy for the patient She may continue Antivert up to 3 times a day as needed. Breathing parker she is back to her baseline Medication list reviewed Patient is already on maintenance inhaler along with albuterol as needed She is also taking cetirizine for allergies Atenolol for high blood pressure And levothyroxine 175 mcg for hypothyroidism [facility] Medical History Vitamin D deficiency Multinodular thyroid Hypothyroidism Surgical History Hx of cervical discectomy Hx of umbilical hernia repair Hx of cholecystectomy Hx of section Family History Mother Hypertension Father Hypertension High cholesterol Sister Thyroid cancer Social History Housing: House Alcohol intake: current Alcohol intake frequency: holidays/special occasions only Patient Tobacco Use Status: Never used Tobacco e-Cigarette/Vaping Use: Never Used Second Hand Smoke Exposure: No service: No Current occupational status: employed Cognitive needs: No Hearing needs: No Vision needs: Yes Questionnaire Thrive Questionnaire Date Thrive assessed: 03/01/24 NALDO-7 AMB Questionnaire NALDO-7 Date NALDO - 7 assessed: 03/01/24 Source: Developed by Drs. Don Moncada, Shalini Gutierrez, Hamlet Gordillo and colleagues, with an educational pratibha from [employer]. Review of Systems Const Denies chills and Denies fever(s) ENT Denies epistaxis and Denies nasal discharge Card Denies chest pain Resp Denies hemoptysis GI Denies diarrhea and Denies nausea Skin/Breast Denies rash Neuro Reports no additional complaints Psych Reports no additional complaints Endo Reports no additional complaints Physical exam (Primary Care) Vital Signs: Last Vital Signs Pulse 90 03/30/24 13:41 BP 120/74 03/30/24 13:41 Pulse Ox 96 03/30/24 13:41 Oxygen Delivery Method Room Air 03/30/24 13:41 BMI result Body Mass Index 44.4 Tobacco/Smoking Status: Tobacco use Status Tobacco use date assessed 03/30/24 03/30/24 13:45 Patient Tobacco Use Status Never used Tobacco 03/30/24 13:45 e-Cigarette/Vaping Use Never Used 03/30/24 13:45 Thrive Assessment: Date of Thrive Assessment Date Thrive assessed 03/01/24 03/30/24 13:45 Const General: cooperative, comfortable and no acute distress Orientation/consciousness: patient oriented x3 HENMT Other: Ears without signs of infection Head: Yes normocephalic Eyes General: appearance normal, both eyes and all related structures Neck Neck: Yes supple Resp Other: Lungs clear to auscultation posteriorly Effort & Inspection: normal respiratory effort, no cough and no stridor Cardio Rhythm: regular rhythm Heart sounds: S1 normal heart sound present and S2 normal heart sound present Skin General skin exam: turgor normal Neuro Other: Vertigo test positive General: patient oriented x3, tone normal and moves all extremities Extrem Right lower extremity: no edema Left lower extremity: no edema Coding Level of Care Code Est Pt Level 4 (17242) Diagnoses Vertigo R42 Hospital discharge follow-up Z09 SARS (severe acute respiratory syndrome) J12.81 Other specified hypothyroidism E03.8 Hypertension, essential I10 Environmental allergies Z91.09 Assessment & Plan Assessment & Plan (1) Vertigo: Code(s): R42 - Dizziness and giddiness Category: Medical (2) Hospital discharge follow-up: Code(s): Z09 - Encounter for follow-up examination after completed treatment for conditions other than malignant neoplasm Category: Medical (3) SARS (severe acute respiratory syndrome): Code(s): J12.81 - Pneumonia due to SARS-associated coronavirus Category: Medical (4) Other specified hypothyroidism: Code(s): E03.8 - Other specified hypothyroidism Category: Medical (5) Hypertension, essential: Code(s): I10 - Essential (primary) hypertension Category: Medical (6) Environmental allergies: Code(s): Z91.09 - Other allergy status, other than to drugs and biological substances Category: Medical Plan Patient is a 53-year-old female came in today to have a follow-up post hospital discharge Patient was seen at [facility] on March 25 when she presented with shortness a breath and dizziness And found to have a COVID infection Patient had workup done including CT scan head which was negative Chest x-ray did not show any pneumonia She was treated for COVID pneumonitis Eventually patient got better and was discharged on 03/28/2024 She continued to feel dizzy though, She was sent home with meclizine that did help along with Zofran as needed Patient says that she feels she is gradually getting better I have ordered vestibular physical therapy for the patient She may continue Antivert up to 3 times a day as needed. Breathing parker she is back to her baseline Medication list reviewed Patient is already on maintenance inhaler along with albuterol as needed She is also taking cetirizine for allergies Atenolol for high blood pressure And levothyroxine 175 mcg for hypothyroidism Orders: Orders PT Evaluation and Treatment Today R42 - Dizziness and giddiness
[2024-03-30 13:41] VITALS: BP 120/74; PULSE 90; O2SAT 96; BMI 44.4
== END 2024-03-30 15:49 | disposition home or self-care (01) ==
PROVIDERS: PCP Internal Medicine; Visit Provider Internal Medicine
DX: R42 Dizziness and giddiness (principal); Z09 Encounter for follow-up examination after completed treatment for conditions other than malignant neoplasm; J12.81 Pneumonia due to SARS-associated coronavirus; E03.8 Other specified hypothyroidism; I10 Essential (primary) hypertension; Z91.09 Other allergy status, other than to drugs and biological substances

== ENCOUNTER 2024-04-19 16:00 | Outpatient (RCR) | payer BC, SELFPAY ==
[2024-04-12 07:57] VITALS: BP 142/87; PULSE 65; O2SAT 97
--- NOTE | 2024-04-12 10:18 | MHC.PT.EP ---
[facility] [place] Office [place] Office [place] Office [address] [employer] [phone] F: [phone] F: [phone] F: [phone] F: [phone] Physical Therapy Plan of Care Date of Evaluation: 04/12/24 Date of Surgery: Diagnosis: This is a 53 yo yo female presenting to skilled PT with a script for vertigo. Assessment: This is a 53 yo yo female presenting to skilled PT with a script for vertigo. Patient was seen at [facility] on March 25 when she presented with shortness of breath and dizziness. She was found to have a COVID infection. Patient had workup done including CT scan head which was negative, chest x-ray did not show any pneumonia and she was treated for COVID pneumonitis. Eventually patient got better and was discharged on 03/28/2024. She continued to feel dizzy though and was sent home with meclizine that did help along with Zofran as needed. Patient says that she feels she is gradually getting better. Patient reports that she had inner ear neuritis in the past about 9-10 years ago. She has an appointment with ENT some time next year. She is supposed to work on Thursday the . Symptoms increase with ambulation (on and off of stairs), looking up, looking to the R, focusing, rolling over, driving. Symptoms can be at rest and with movement. Her symptoms include nauseous, unsteadiness, dizziness, trouble focusing. Examination shows WFL oculomotor tests with saccades, (-) VBI B, and slightly limited cervical AROM. She was (? +) for BPPV with arnaldo-hallpike R PC, so PT performed precautionary felicia maneuver. Today we did not have time to assess balance formally due to time but patient was noted to grab onto surrounding surfaces for assistance. S/S consistent with ? R PC BPPV vs vestibular hypofunction vs vestibular neuritis and she would benefit from PT 2x/wk for 4wks to address impairments, implement HEP and optimize functional mobility. 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 Frequency and Duration: The patient will be seen 2x/wk for 4wks Short Term Goals: assess balance and reassess canals [employer] Att[employer] Goals: I in HEP Negative in all 6 canals for dizziness and nystagmus Return to normal gait pattern without reports fo LOB due to dizziness Treatment Plan: Modalities to reduce pain, spasms and effusion. Manual therapy to restore motion and function. Therapeutic exercise to improve strength and flexibility. Neuromuscular re-education for posture and balance. Therapeutic activities to return to functional activities of daily living. Electronically signed by: Milvia Plasencia PT Please sign and return to therapist. Thank you for your referral.
--- NOTE | 2024-05-20 09:30 | MHC.PT.DC ---
[facility] [place] Office [place] Office [place] Office [address] [phone] F: [phone] F: [phone] F: [phone] F: [phone] Physical Therapy Discharge Report Diagnosis: This is a 53 yo yo female presenting to skilled PT with a script for vertigo. Date of Surgery: Date of Evaluation: 04/12/24 Date of Discharge: 05/20/24 Treatments to Date: 2 Cancellations to Date: 0 No Shows to Date: 0 Discharge Status: Achieved Goals Improved Function Independent with HEP Discharge Summary: 04/19: Patient was negative B for nystagmus and symptoms. She demos WFL balance during static and dynamic assessment. Her gait is WFL. I educated her that she should continue her VOR exercises and return as needed to PT. She returns to work on Thursday, educated her on safety and balance. Reassess as needed. Electronically signed by: Milvia Plasencia, PT Please sign and return to therapist. Thank you for your referral.
== END 2024-05-20 09:31 | disposition home or self-care (01) ==
LOC: HO.PTCHIC 16:00
PROVIDERS: PCP Internal Medicine; Visit Provider Internal Medicine
DX: H81.10 Benign paroxysmal vertigo, unspecified ear (principal)
CPT/HCPCS: 95992; 97110; 97112; 97162

== ENCOUNTER 2024-06-20 15:47 | Outpatient (AMB) | payer BC, SELFPAY ==
--- NOTE | 2024-06-20 15:47 | A.OFFVIS_ITS ---
Vital Signs 06/20/24 15:48 Height 5 ft 2 in Weight 245 lb 13.047 oz BMI 45.0 BP 140/86 H Blood Pressure Location Rt brachial Position Sitting Pulse 74 Pulse Source Pulse Oximeter Pulse Oximetry (%) 97 Oxygen Delivery Method Room Air Intake Visit Reasons: Pulmonary Nodule Allergies environmental allergies Allergy (Unknown, Uncoded 06/20/24 15:50) unknown From Cymbalta Allergy (Unknown, Uncoded 06/20/24 15:50) RASH tress, pollen,mold, dust,pet d Allergy (Unknown, Uncoded 06/20/24 15:50) Unknown HPI Comments Details: The patient is a 54 year woman with a known history of asthma presenting with worsening history of cough in addition to an abnormal CT scan. the patient states that her asthma was in good control until recently when she started developing a URI. I was back in May. The patient was noted to have significant chest tightness and wheezing. She was started on prednisone. After she had a congested cough. Moderate severity. Still lingering. Feels that she is more congested and therefore has some chest tightness and difficulty ambulating. This is typical for her after a respiratory virus. The patient in meantime did undergo an imaging study including CT scan of the chest which was personally by me. The patient has a pleural-based density in the medial aspect of the back in the distribution of a potential schwannoma. Other potential conditions in the differential include a benign fibrous tumor of the pleura. Based on the location of it and size I do believe that the thoracic surgery consultation be warranted. In the meantime will going to go ahead and treat her for postviral bacterial infection with doxycycline and also optimize respiratory therapy. Based on my examination I do not believe she needs prednisone right now. If her symptoms worsen she can always call and request a prescription to the pharmacy. 10/19/2023 The patient is here for a follow up visit. She recently underwent a colonoscopy. Afterwards, felt ok, but this morning she woke up with sore throat and chest congestion. +productive cough and chest tightness. Denies any fevers. She also has been aggravated by the pollen levels. She did consult with Thoracic surgery and will have her surgery the end of the summer. She has been using her respiratory therapy with good effect. 06/20/2024 the patient is here for a pulmonary follow-up visit. Overall she is doing well from a respiratory status. She did undergo resection for her pulmonary nodule and apparently was benign per the patient's report. She does not have any further follow-up with thoracic surgery. In addition to that she did follow-up at [facility] for her thyroid cancer. She did have a total thyroidectomy for thyroid cancer. Lymph node dissection demonstrated some positive lymph node involvement. Therefore she was given radiation therapy. She will follow-up in [place] for the. Also found to have large tonsils and was referred to ENT. She does have evidence of hypoxia while sleeping was noted postoperatively with both surgeries. The patient does have daytime drowsiness with the Durand score 04/10. I did recommend a sleep study. The patient will think about it she is concerned about not been able to tolerate CPAP therapy. If she decides to have a sleep study she will call me and I will order it then. For now though she will continue with current respiratory therapy and she should continue positional therapy as she sleeps prone. Should minimize sleeping on her back. I will request the PET scan that she had a best [facility] just to make sure she does not have any additional nodules to follow from a pulmonary standpoint. [facility] Medical History Vitamin D deficiency Multinodular thyroid Hypothyroidism Surgical History Hx of cervical discectomy Hx of umbilical hernia repair Hx of cholecystectomy Hx of section Family History Mother Hypertension Father Hypertension High cholesterol Sister Thyroid cancer Social History Housing: House Alcohol intake: current Alcohol intake frequency: holidays/special occasions only Patient Tobacco Use Status: Never used Tobacco e-Cigarette/Vaping Use: Never Used Second Hand Smoke Exposure: No service: No Current occupational status: employed Cognitive needs: No Hearing needs: No Vision needs: Yes Review of Systems Const Denies chills and Denies fever(s) ENT Reports change in voice, Denies epistaxis, Denies nasal discharge and Reports sore throat Card Reports dyspnea on exertion Resp Denies chest congestion, Denies cough, Denies hemoptysis, Reports dyspnea on exertion and Denies wheezing GI Denies diarrhea and Denies nausea Skin/Breast Denies rash Neuro Reports no additional complaints Psych Reports no additional complaints Endo Reports no additional complaints Aller/Immun Denies wheezing Physical Exam Vital Signs: Last Vital Signs Pulse 74 06/20/24 15:48 BP 140/86 H 06/20/24 15:48 Pulse Ox 97 06/20/24 15:48 Oxygen Delivery Method Room Air 06/20/24 15:48 BMI result Body Mass Index 45.0 Const General: cooperative and healthy appearing Nutritional Appearance: well nourished Orientation/consciousness: patient oriented x3 Limitations: no limitations HEENT Head: Yes normal to inspection Eyes General: appearance normal, both eyes and all related structures Neck Neck: Yes normal visual inspection Chest Chest palpation & inspection: normal palpation of entire chest wall Resp Effort & Inspection: normal respiratory effort Auscultation: clear to auscultation bilaterally and no wheezes Neuro General: patient oriented x3 Assessment & Plan Assessment & Plan (1) Pulmonary nodule: Code(s): R91.1 - Solitary pulmonary nodule Category: Medical (2) Asthma: Code(s): J45.909 - Unspecified asthma, uncomplicated Category: Medical Qualifiers: Asthma complication type: with acute exacerbation Asthma persistence: p ersistent Asthma severity: moderate Qualified Code(s): J45.41 - Moderate persistent asthma with (acute) exacerbation (3) SY (obstructive sleep apnea): Code(s): G47.33 - Obstructive sleep apnea (adult) (pediatric) Category: Medical Plan continue Symbicort BID SHIRLEY as needed continue zyrtec requesting PET/CT from [facility] consider PSG positional sleep therapy F/U 10-12 months Coding Level of Care Code Est Pt Level 4 (45369) Diagnoses Pulmonary nodule R91.1 Moderate persistent asthma with acute exacerbation J45.41 Asthma complication type: with acute exacerbation Asthma persistence: persistent Asthma severity: moderate SY (obstructive sleep apnea) G47.33 Time Spent (min) 17
[2024-06-20 15:48] VITALS: BP 140/86; PULSE 74; O2SAT 97; BMI 45.0
--- OUTSIDE RECORDS SUMMARY | 2024-06-20 17:05 | XMS_ITS | Encounter Summary ---
Author Organization [facility] Address [address] [place] [address] Care Team Providers Care Men'S Locker Room Attendant Name Role Phone Kerri Otto MD Primary Care Provider [phone] Encounter Details Date Type Department Care Team (Late st Contact Info) Description 02/24/2024 2:19 PM EDT Hospital Encounter TH HISTORIC ENCOUNTERS EASTERN CONVERSION ONLY Beverly Rojas, BRO [address] [place] [address] Benign neoplasm of mediastinum Social History Tobacco Use Types Packs/Day Years Used Date Smoking Tobacco: Never Smokeless Tobacco: Never Alcohol Use Standard Drinks/Week Comments Yes 0 (1 standard drink = 0.6 oz pur e alcohol) Interpersonal Safety Answer Date Record ed Physical Abuse 03/25/2024 Verbal Abuse 03/25/2024 Sex and Gender Information Value Date Recorded Sex Assigned at Not on file Gender Identity Not on file Sexual Orientation Not on file Job Start Date Occupation Industry Not on file Not on file Not on file documented as of this [...] PM EDT Narrative 02/25/2024 8:03 AM EDT [facility] Diagnostic Imaging Department [address] [place] [address] [id number] Patient: ??THEROUX,TIARA ?/Age/Sex: 1970 - Unit#: ??[id number] ? Location/Status: ??SPDIGEN/REG CLI ? Mnemonic/Ordering Site: ??CHESTXR/SPDI Ordering Physician: ??BEVERLY ROJAS PA-C DR Chest Routine 2 Views - 02/24/24 - 6443 Report Status:Signed HISTORY: The patient is a [...] are clear. Improved depth of inspiration. Code 05850 Dictating Physician: ??MOR GOODE MD Electronically Signed by: ??MOR GOODE MD Dic Date/Time: ??02/25/24 0757 Sign date/Time: ??02/25/24 0803 Procedure Note Mor Goode MD - 03/15/2024 [facility] Diagnostic Imaging Department [address] [place] [id number] Patient: TIARA CURIEL /Age/Sex: 1970 - 53 - F Unit#: [id number] Location/Status: SPDIGEN/REG CLI Mnemonic/Ordering Site: CHESTXR/SPDI Ordering Physician: BEVERLY ROJAS PA-C DR Chest Routine 2 Views - 02/24/24 - 4863 Report Status:Signed HISTORY: The patient is a [...] lungs are clear.Improved depth of inspiration. Code 64477 Dictating Physician: MOR GOODE MD Electronically Signed by: MOR GOODE MD Dic Date/Time: 02/25/24 0757 Sign date/Time: 02/25/24 0803 [facility] IM[facility] XR PROCEDURE S documented in this encounter Visit Diagnoses Diagnosis Benign neoplasm of mediastinum documented in this encounter Additional Health Concerns Infection Onset Date Last Indicated Resolved Time Respiratory Rule-Out 03/25/2024 03/25/2024 024 3:20 AM EST COVID-19 Rule-Out 03/25/2024 03/25/2024 03/25/2024 3:20 AM EST COVID-19 03/25/2024 03/25/2024 04/24/2024 7:0 4 PM EST documented as of this encounter Care Teams Men'S Locker Room Attendant Relationship Specialty Start Date End Date Kerri Otto MD [address] [place] [address] PCP - General Internal Medicine 09/12/20 documented as of this encounter
--- OUTSIDE RECORDS SUMMARY | 2024-06-20 17:06 | XMS_ITS | Clinical Summary ---
Author Organization [facility] Address [address] [place] [address] Phone Care Team Providers Care Group Underwriter Name Role Phone Kerri Otto MD Primary Care Provider [phone] Allergies No known active allergies Medications Medication Sig Dispensed Refills Start Date End Date Status acetaminophen (TYLENOL) 325 mg tablet Take 3 tablets (975 mg total) by mouth every 6 hours. 02/26/2024 Active albuterol HFA (PROAIR HFA ; PROVENTIL HFA ; VENTOLIN HFA) 90 mcg/actuation inhaler Inhale 1 puff by mouth every 4 (four) hours if needed for wheezing or shortness of breath. 03/01/2024 Active atenoloL (TENORMIN) 50 mg tablet Take 1 tablet (50 mg total) by mouth daily. 06/12/2021 Active Breyna 160-4.5 mcg/actuation inhaler 11/29/2023 Act daryl cetirizine (ZyrTEC) 10 mg tablet Take 1 tablet (10 mg total) by mouth 1 (one) time each day. 01/20/2019 Active cholecalciferol (VITAMIN D-3) 50 mcg (2,000 unit) tablet Take 1 tablet (2,000 Units total) by mouth 1 (one) time each day. Active cyanocobalamin (VITAMIN B-12) 1,000 mcg tablet Take 1 tablet (1,000 mcg total) by mouth daily. Active docusate sodium (COLACE) 100 mg capsule Take 1 capsule (100 mg total) by mouth 2 times daily. 02/26/2024 Active levothyroxine (SYNTHROID, LEVOTHROID) 175 mcg tablet Take 1 tablet (175 mcg total) by mouth 1 (one) time each day before breakfast. 02/27/2024 Active melatonin 10 mg capsule Take 1 capsule (10 mg total) by mouth at bedtime. Active montelukast (SINGULAIR) 10 mg tablet Take 1 tablet (10 mg total) by mouth daily. 02/07/2012 Active multivitamin tablet Take 1 tablet by mouth daily. Active SUMAtriptan (IMITREX) 25 mg tablet Take 1 tablet (25 mg total) by mouth 1 (one) time each day if needed. 02/07/2012 Active Active Problems Problem Noted Date Diagnosed Date COVID-19 03/28/2024 Vertigo, intermittent 03/26/2024 Encounters Date Type Department Care Team Description 03/24/2024 7:53 PM EST - 03/28/2024 3:47 PM EST Hospital Encounter [facility] [address] [place] [phone] Todd Roth DO Garvin, Meredith Kate, MD Landry, Jonathan P, MD Flores, Carlos M, MD Santoyo-Pacheco, Omar D, MD Seralathan, Manikandan, MD Vertigo, intermittent (Primary Dx); COVID-19 Discharge Disposition: Home or Self Care from Last 3 Months Surgical History Surgery Date Site/Laterality Comments CHOLECYSTECTOMY PROCEDURE: MT LAPAROSCOPY SURG CHOLECYSTECTOMY HERNIA REPAIR PROCEDURE: MT REPAIR FIRST ABDOMINAL WALL HERNIA SECTION PROCEDURE: MT DELIVERY ONLY OTHER SURGICAL HISTORY PROCEDURE: CONTRACEPT IUD OTHER SURGICAL HISTORY 02/02/2024 Left PROCEDURE: MT MEDIASTINOSCOPY INCLUDES MEDIASTINAL MASS BIOPSY; COMMENT: Posterior mediastinal mass Medical History Medical History Date Comments Hypertension DX:Hypertension Hypothyroid DX:Hypothyroid Right knee injury DX:Right knee injury Right upper quadrant abdominal pain DX:Right upper quadrant abdominal pain Migraine DX:Migraine Obesity DX:Obesity; COMM ENT: BMI 44 Asthma DX:Asthma Family History Medical History Relation Name Comments Hypertension Father Other: high cholesterol Father No Known Problems Mother Other: lupus Sister Relation Name Status Comments Father Alive Mother Alive Sister Social History Tobacco Use Types Packs/Day Years [...] file Not on file Not on file Obstetrics History Last Filed Vital Signs Vital Sign Reading Time Taken Comments Blood Pressure 135/99 03/28/2024 2:35 PM EST Pulse 72 03/28/2024 2:35 PM EST Temperature 37 ??C (98.6 ??F) 03/28/2024 2:35 PM EST Respiratory Rate 20 03/28/2024 2:35 PM EST Oxygen Saturation 97% 03/28/2024 2:35 PM EST Inhaled Oxygen Concentration - - Weight 112 kg (247 lb) 03/24/2024 11:25 PM EST Height 162.6 cm (5' 4 ) 03/24/2024 11:25 PM EST Body Mass Index 42.4 03/24/2024 11:25 PM EST Plan of Treatment Health Maintenance Due Date Last Done Comments Breast Cancer Screening 1972 Pneumococcal Vaccine: Pediatrics (0 to 5 Years) and At-Risk Patients (6 to 64 Years) (1 of 2 - PCV) 1978 Hepatitis B Vaccines (1 of 3 - 19+ 3-dose series) 1991 Zoster Vaccines (1 of 2) 1991 Cervical Cancer Screening: Pap Smear 1993 Cholesterol Screening (Lipid Panel) 04/20/2022 Colorectal Cancer Screening: Colonoscopy 04/20/2022 Depression Screening 04/20/2022 HIV Screening 04/20/2022 Hepatitis C Screening 04/20/2022 Social Influencers of Health Screening 04/20/2022 COVID-19 Vaccine ( season) 2024 04/19/2021, 09/06/2020, 08/16/2020, Additional history exists Influenza Vaccine (#1) 2024 , 05/27/2022, 02/04/2021, Additional history exists DTaP,Tdap,and Td Vaccines (2 - Td or Tdap) 11/25/2026 11/25/2016 MMR Vaccines Aged Out 09/02/2016, 07/21/2016 No lo nger eligible based on patient's age to complete this topic HIB Vaccines Aged Out No longer eligi ble based on patient's age to complete this topic HPV Vaccines Aged Out No longer eligi ble based on patient's age to complete this topic Hepatitis A Vaccines Aged Out No long er eligible based on patient's age to complete this topic IPV Vaccines Aged Out No longer eligi ble based on patient's age to complete this topic Meningococcal ACWY Vaccine Aged Out N o longer eligible based on patient's age to complete this topic RSV Immunization Patients Under 20 months Aged Out No longer eligible based on patient's age to complete this topic Varicella Vaccines Aged Out No longer eligible based on patient's age to complete this topic Procedures Procedure Name Priority Date/Time Associated Diagnosis Comments COMPLETE BLOOD COUNT Routine 03/26/2024 6:22 AM EST PHOSPHORUS Routine 03/26/2024 6:22 AM EST MAGNESIUM Routine 03/26/2024 6:22 AM EST COMPREHENSIVE METABOLIC PANEL Routine 03/26/2024 6:22 AM EST ECG ANNOTATED 03/26/2024 XR CHEST 1 VIEW STAT 03/25/2024 12:45 PM EST POCT GLUCOSE BLOOD Routine 03/25/2024 8: [address] HEAD WO CONTRAST STAT 03/25/2024 7:48 AM EST RESPIRATORY VIRUS PANEL MOLECULAR STUDY STAT 03/25/2024 2:15 AM EST ECG 12-LEAD STAT 03/24/2024 10:11 PM EST CBC WITH AUTO DIFFERENTIAL STAT 03/24/2024 8:43 PM EST MAGNESIUM STAT 03/24/2024 8:43 PM EST BASIC METABOLIC PANEL STAT 03/24/2024 8:43 PM EST CBC AND DIFFERENTIAL STAT 03/24/2024 8:43 PM EST from Last 3 Months Results * Complete blood count (03/26/2024 6:22 AM EST) [facility] WBC 10.7 4.8 - 10.8 K/mcL LAB HEMETOLOGY METHOD 03/26/2024 8:31 AM [facility] RBC 3.80 3.80 - 4.80 M/mcL LAB HEMETOLOGY METHOD 03/26/2024 8:31 AM [facility] Hemoglobin 11.7 11.5 - 16.0 g/dL LAB HEMETOLOGY METHOD 03/26/2024 8:31 AM [facility] Hematocrit 35.8 35.0 - 47.0 % LAB HEMETOLOGY METHOD 03/26/2024 8:31 AM [facility] MCV 94.0 79.0 - 98.0 FL LAB HEMETOLOGY METHOD 03/26/2024 8:31 AM [facility] MCH 30.7 27.0 - 32.0 pcg LAB HEMETOLOGY METHOD 03/26/2024 8:31 AM [facility] MCHC 32.7 32.0 - 37.0 g/dL LAB HEMETOLOGY METHOD 03/26/2024 8:31 AM [facility] RDW 12.7 11.0 - 15.0 % LAB HEMETOLOGY METHOD 03/26/2024 8:31 AM [facility] Platelets 329 130 - 400 K/mcL LAB HEMETOLOGY METHOD 03/26/2024 8:31 AM [facility] MPV 10.2 7.0 - 11.0 FL LAB HEMETOLOGY METHOD 03/26/2024 8:31 AM [facility] NRBC 0.0 <1.0 % LAB HEMETOLOGY METHOD 03/26/2024 8:31 AM EST [facility] NRBC Absolute 0.00 <0.10 K/mcL LAB HEMETOLOGY METHOD 03/26/2024 8:31 AM EST [facility] Blood Venous blood specimen / Unknown Venipuncture / Unknown 03/26/2024 6:22 AM EST 03/26/2024 7:22 AM EST Scott Giron MD LAB BLOOD ORDERABLES Performing Organization Address [facility]/ZIP Co de Phone Number [facility] [address] [place] [address], * Phosphorus (03/26/2024 6:22 AM EST) Phosphorus 3.0 2.5 - 4.5 mg/dL LAB CHEMISTRY METHOD 03/26/2024 8:31 AM EST [facility] Blood Venous blood specimen / Unknown Venipuncture / Unknown 03/26/2024 6:22 AM EST 03/26/2024 7:21 AM EST Scott Giron MD LAB BLOOD ORDERABLES Performing Organization Address [facility] de Phone Number [facility] [address] [place] [address], * Magnesium (03/26/2024 6:22 AM EST) Only the most recent of2 resultswithin the time period is included. Magnesium 2.2 1.9 - 2.6 mg/dL LAB CHEMISTRY METHOD 03/26/2024 8:31 AM EST [facility] Blood Venous blood specimen / Unknown Venipuncture / Unknown 03/26/2024 6:22 AM EST 03/26/2024 7:21 AM EST Scott Giron MD LAB BLOOD ORDERABLES [facility] [address] [place] [address], * (ABNORMAL) Comprehensive metabolic panel (03/26/2024 6:22 AM EST) Sodium 137 133 - 145 mmol/L LAB CHEMISTRY METHOD 03/26/2024 8:38 AM [facility] Potassium 3.6 3.5 - 5.5 mmol/L LAB CHEMISTRY METHOD 03/26/2024 8:38 AM [facility] Chloride 103 96 - 110 mmol/L LAB CHEMISTRY METHOD 03/26/2024 8:38 AM [facility] CO2 27 21 - 32 mmol/L LAB CHEMISTRY METHOD 03/26/2024 8:38 AM [facility] Anion Gap 7 3 - 11 LAB CHEMISTRY METHOD 03/26/2024 8:38 AM [facility] Glucose 88 70 - 100 mg/dL LAB CHEMISTRY METHOD 03/26/2024 8:38 AM [facility] BUN 9 5 - 25 mg/dL LAB CHEMISTRY METHOD 03/26/2024 8:38 AM [facility] Creatinine 0.69 0.50 - 1.10 mg/dL LAB CHEMISTRY METHOD 03/26/2024 8:38 AM [facility] eGFR 105 >=60 mL/min/1. 73m2 LAB CHEMISTRY METHOD 03/26/2024 8:38 AM [facility] Comment:Calculation based on the??Chronic Kidney Disease Epidemiology Collaboration (CKD-EPI) equation refit??without adjustment for race. BUN/Creatinine Ratio 13.0 LAB CHEMISTRY METHOD 03/26/2024 8:38 AM [facility] Calcium 8.5 8.5 - 10.5 mg/dL LAB CHEMISTRY METHOD 03/26/2024 8:38 AM [facility] AST (SGOT) 19 10 - 42 unit/L LAB CHEMISTRY METHOD 03/26/2024 8:38 AM [facility] ALT (SGPT) 26 10 - 60 unit/L LAB CHEMISTRY METHOD 03/26/2024 8:38 AM [facility] Alkaline Phosphatase 66 42 - 121 unit/L LAB CHEMISTRY METHOD 03/26/2024 8:38 AM [facility] Total Protein 6.3 6.0 - 8.0 g/dL LAB CHEMISTRY METHOD 03/26/2024 8:38 AM [facility] Albumin 3.1(L) 3.2 - 5.0 g/dL LAB CHEMISTRY METHOD 03/26/2024 8:38 AM [facility] Total Bilirubin 0.4 0.0 - 1.4 mg/dL LAB CHEMISTRY METHOD 03/26/2024 8:38 AM [facility] Blood Venous blood specimen / Unknown Venipuncture / Unknown 03/26/2024 6:22 AM EST 03/26/2024 7:21 AM EST Scott Giron MD LAB BLOOD ORDERABLES [facility] [address] [place] [address], * ECG-Annotated (03/26/2024) Provider Onbase ECG ORDERABLES * XR Chest 1 View (03/25/2024 12:45 PM EST) Anatomical Region Laterality Modality Body Radiographic Estefani ging 03/25/2024 12:5 2 PM EST Impressions 03/25/2024 12:59 PM EST FINDINGS/IMPRESSION: No pneumonia or pulmonary edema. ??No pleural effusion or pneumothorax. ??Cardiac silhouette is normal in size. ??Cervical fusion hardware is unchanged. ??Bones are otherwise unremarkable. -------- FINAL REPORT -------- Dictated By: LEOBARDO MOSS Dictated Date: 03/25/2024 12:52 ET Assigned Physician: LEOBARDO MOSS Reviewed and Electronically Signed By: LEOBARDO MOSS Signed Date: 03/25/2024 12:59 ET Workstation ID: [id number] Transcribed By: Self Edit Transcribed Date: 03/25/2024 12:52 ET Narrative 03/25/2024 12:59 PM EST XR CHEST 1 VIEW INDICATION: ??Shortness of breath TECHNIQUE: XR CHEST 1 VIEW COMPARISON: 02/24/2024 Procedure Note Leobardo Moss MD - 03/25/2024 XR CHEST 1 VIEW INDICATION: Shortness of breath TECHNIQUE: XR CHEST 1 VIEW COMPARISON: 02/24/2024 IMPRESSION: FINDINGS/IMPRESSION: No pneumonia or pulmonary edema. No pleural effusionor pneumothorax. Cardiac silhouette is normal in size. Cervical fusionhardware is unchanged. Bones are otherwise unremarkable. -------- FINAL REPORT -------- Dictated By: LEOBARDO MOSS Dictated Date: 03/25/2024 12:52 ET Assigned Physician: LEOBARDO MOSS Reviewed and Electronically Signed By: LEOBARDO MOSS Signed Date: 03/25/2024 12:59 ET Workstation ID: [id number] Transcribed By: Self Edit Transcribed Date: 03/25/2024 12:52 ET Gretel Olivas [employer] PUBLISHER IMG XR PROCEDURE S * POCT Glucose, blood (03/25/2024 8:23 AM EST) Glucose POCT 100 70 - 100 mg/dL 03/25/2024 8:24 AM EST [facility] Blood Capillary blood specimen / Unknown 03/25/2024 8:23 AM EST 03/25/2024 8:25 AM EST Rosendo Encinas MD LAB POINT OF CARE T EST DOCKED DEVICE UNSOLICITED RESULTS [facility] [address] [place] [address], * CT Head wo Contrast (03/25/2024 7:48 AM EST) Anatomical Region Laterality Modality Head and Neck Computed Tomogra phy 03/25/2024 8:09 AM EST Impressions 03/25/2024 8:14 AM EST No acute intracranial process seen. -------- FINAL REPORT -------- Dictated By: Abelardo Richard Dictated Date: 03/25/2024 08:09 ET Assigned Physician: Abelardo Richard Reviewed and Electronically Signed By: Abelardo Richard Signed Date: 03/25/2024 08:14 ET Workstation ID: [id number] Transcribed By: Self Edit Transcribed Date: 03/25/2024 08:09 ET Narrative 03/25/2024 8:14 AM EST EXAMINATION: CT head without contrast. CLINICAL INDICATION: Nausea/vomiting, dizziness and history of vertigo. COMPARISON: None. TECHNIQUE: 2.5 mm thin axial and reformatted 3 mm thin sagittal and coronal images of brain were obtained without contrast. Scanner: [employer] 64 slice VCT Dose reduction technique: ASIR (Adaptive statistical iterative reconstruction) and/or AEC (automated exposure control). Dose: total exam DLP 1617 mGy/cm. FINDINGS: There is no acute intra-axial, extra-axial bleed, masses or midline shift. There is no acute infarction in evolution. There is a hypodensity seen in periventricular white matter in both parietal lobes and adjacent to the occipital horns consistent with chronic small vessel ischemic changes. The lateral ventricles are symmetrical but enlarged. Bone windows reveal no calvarial abnormality. There is no scalp soft tissue abnormality. There is mild mucoperiosteal thickening bilateral sphenoid, maxillary and ethmoid sinuses. The soft tissues are normal. Procedure Note Abelardo Richard MD - 03/25/2024 EXAMINATION: CT head without contrast. CLINICAL INDICATION: Nausea/vomiting, dizziness and history of vertigo. COMPARISON: None. TECHNIQUE: 2.5 mm thin axial and reformatted 3 mm thin sagittal andcoronal images of brain were obtained without contrast. Scanner: [employer] 64 slice VCT Dose reduction technique: ASIR (Adaptive statistical iterativereconstruction) and/or AEC (automated exposure control). Dose: total examDLP 1617 mGy/cm. FINDINGS: There is no acute intra-axial, extra-axial bleed, masses ormidline shift. There is no acute infarction in evolution. There is ahypodensity seen in periventricular white matter in both parietal lobesand adjacent to the occipital horns consistent with chronic small vesselischemic changes. The lateral ventricles are symmetrical but enlarged.Bone windows reveal no calvarial abnormality. There is no scalp softtissue abnormality. There is mild mucoperiosteal thickening bilateralsphenoid, maxillary and ethmoid sinuses. The soft tissues are normal. IMPRESSION: No acute intracranial process seen. -------- FINAL REPORT -------- Dictated By: Abelardo Richard Dictated Date: 03/25/2024 08:09 ET Assigned Physician: Abelardo Richard Reviewed and Electronically Signed By: Abelardo Richard Signed Date: 03/25/2024 08:14 ET Workstation ID: [id number] Transcribed By: Self Edit Transcribed Date: 03/25/2024 08:09 ET Lissa Moreno MD IM CT PROCEDURE S * (ABNORMAL) Respiratory virus panel molecular study (03/25/2024 2:15 AM EST) Adenovirus Detection by PCR Not Detected Not Detected LAB MICROBIOLOGY METHOD 03/25/2024 3:20 AM [facility] Influenza A PCR Not Detected Not Detected LAB MICROBIOLOGY METHOD 03/25/2024 3:20 AM [facility] Influenza B PCR Not Detected Not Detected LAB MICROBIOLOGY METHOD 03/25/2024 3:20 AM [facility] Coronavirus 229E Not Detected Not Detected LAB MICROBIOLOGY METHOD 03/25/2024 3:20 AM [facility] Coronavirus HKU1 Not Detected Not Detected LAB MICROBIOLOGY METHOD 03/25/2024 3:20 AM [facility] Coronavirus OC43 Not Detected Not Detected LAB MICROBIOLOGY METHOD 03/25/2024 3:20 AM [facility] Coronavirus NL63 Not Detected Not Detected LAB MICROBIOLOGY METHOD 03/25/2024 3:20 AM [facility] Parainfluenza Virus 1 Not Detected Not Detected LAB MICROBIOLOGY METHOD 03/25/2024 3:20 AM [facility] Parainfluenza Virus 2 Not Detected Not Detected LAB MICROBIOLOGY METHOD 03/25/2024 3:20 AM [facility] Parainfluenza Virus 3 Not Detected Not Detected LAB MICROBIOLOGY METHOD 03/25/2024 3:20 AM [facility] Parainfluenza Virus 4 Not Detected Not Detected LAB MICROBIOLOGY METHOD 03/25/2024 3:20 AM [facility] RSV PCR Not Detected Not Detected LAB MICROBIOLOGY METHOD 03/25/2024 3:20 AM [facility] Human Metapneumovirus A and B Not Detected Not Detected LAB MICROBIOLOGY METHOD 03/25/2024 3:20 AM [facility] Rhinovirus/Entero virus Not Detected Not Detected LAB MICROBIOLOGY METHOD 03/25/2024 3:20 AM [facility] Bordetella pertussis Not Detected Not Detected LAB MICROBIOLOGY METHOD 03/25/2024 3:20 AM [facility] Bordetella parapertussis Not Detected Not Detected LAB MICROBIOLOGY METHOD 03/25/2024 3:20 AM [facility] Mycoplasma pneumo by PCR Not Detected Not Detected LAB MICROBIOLOGY METHOD 03/25/2024 3:20 AM [facility] Chlamydia pneumoniae Not Detected Not Detected LAB MICROBIOLOGY METHOD 03/25/2024 3:20 AM [facility] SARS COV-2 Detected(A ) Not Detected LAB MICROBIOLOGY METHOD 03/25/2024 3:20 AM [facility] Swab Both anterior nares / Unknown Non-blood Collection / Unknown 03/25/2024 2:15 AM EST 03/25/2024 2:26 AM [facility] - 03/25/2024 3:20 AM EST Testing was performed using the [employer] Respiratory Pathogen PCR Assay. All results must be correlated with the clinical findings. Results should not be used as the sole basis for diagnosis. False Negative results may occur from the presence of sequence variants in the region targeted by the assay or the presence of inhibitors. Results may be affected by concurrent antiviral/antimicrobial therapy or levels of organisms that are below the limit of detection. Lissa Moreno MD LAB MICROBIOLOGY - GENERAL ORDERABLES Performing Organization Address [facility] Co de Phone Number [facility] [address] [place] [address], * ECG 12 lead (03/24/2024 10:11 PM EST) Ventricular Rate ECG 76 BPM GEMUSE Atrial Rate 76 BPM GEMUSE P-R Interval 146 ms GEMUSE QRS Duration 68 ms GEMUSE Q-T Interval 426 ms GEMUSE QTc 479 ms GEMUSE P Wave Panther Burn 20 degrees GEMUSE R Panther Burn -4 degrees GEMUSE T Panther Burn 18 degrees GEMUSE ECG Interpretation Normal sinus rhythm Normal ECG When compared with ECG of 16-MAR-2018 20:49, No significant change was found Confirmed by Kim MATA JOHN ([id number]) on 03/25/2024 7:49:02 PM GEMUSE 03/24/2024 10:1 1 PM EST 03/25/2024 7:49 PM EST Todd Roth DO ECG ORDERABLES Performing Organization Address [facility] Co de Phone Number GEMUSE * (ABNORMAL) CBC auto differential (03/24/2024 8:43 PM EST) WBC 13.1(H) 4.8 - 10.8 K/[facility] LAB HEMETOLOGY METHOD 03/24/2024 8:55 PM EST [facility] RBC 4.10 3.80 - 4.80 M/[facility] LAB HEMETOLOGY METHOD 03/24/2024 8:55 PM EST [facility] Hemoglobin 12.8 11.5 - 16.0 g/dL LAB HEMETOLOGY METHOD 03/24/2024 8:55 PM [facility] Hematocrit 38.2 35.0 - 47.0 % LAB HEMETOLOGY METHOD 03/24/2024 8:55 PM [facility] MCV 93.4 79.0 - 98.0 FL LAB HEMETOLOGY METHOD 03/24/2024 8:55 PM [facility] MCH 31.3 27.0 - 32.0 pcg LAB HEMETOLOGY METHOD 03/24/2024 8:55 PM [facility] MCHC 33.5 32.0 - 37.0 g/dL LAB HEMETOLOGY METHOD 03/24/2024 8:55 PM [facility] RDW 12.8 11.0 - 15.0 % LAB HEMETOLOGY METHOD 03/24/2024 8:55 PM [facility] Platelets 353 130 - 400 K/mcL LAB HEMETOLOGY METHOD 03/24/2024 8:55 PM [facility] MPV 10.7 7.0 - 11.0 FL LAB HEMETOLOGY METHOD 03/24/2024 8:55 PM [facility] NRBC 0.0 <1.0 % LAB HEMETOLOGY METHOD 03/24/2024 8:55 PM [facility] NRBC Absolute 0.00 <0.10 K/mcL LAB HEMETOLOGY METHOD 03/24/2024 8:55 PM [facility] Neutrophils Relative 63.2 % LAB HEMETOLOGY METHOD 03/24/2024 8:55 PM [facility] Lymphocytes Relative 24.4 % LAB HEMETOLOGY METHOD 03/24/2024 8:55 PM [facility] Monocytes Relative 11.5 % LAB HEMETOLOGY METHOD 03/24/2024 8:55 PM [facility] Eosinophils Relative 0.2 % LAB HEMETOLOGY METHOD 03/24/2024 8:55 PM EST [facility] Basophils Relative 0.2 % LAB HEMETOLOGY METHOD 03/24/2024 8:55 PM [facility] Immature Granulocytes Relative 0.5 % LAB HEMETOLOGY METHOD 03/24/2024 8:55 PM EST [facility] Neutrophils Absolute 8.31(H) 1.50 - 7.00 K/mcL LAB HEMETOLOGY METHOD 03/24/2024 8:55 PM EST [facility] Lymphocytes Absolute 3.20 1.00 - 5.00 K/mcL LAB HEMETOLOGY METHOD 03/24/2024 8:55 PM [facility] Monocytes Absolute 1.51(H) 0.20 - 1.00 K/mcL LAB HEMETOLOGY METHOD 03/24/2024 8:55 PM EST [facility] Eosinophils Absolute 0.02 0.00 - 0.50 K/mcL LAB HEMETOLOGY METHOD 03/24/2024 8:55 PM EST [facility] Basophils Absolute 0.03 0.00 - 0.20 K/mcL LAB HEMETOLOGY METHOD 03/24/2024 8:55 PM [facility] Immature Granulocytes Absolute 0.07(H) 0.00 - 0.03 K/mcL LAB HEMETOLOGY METHOD 03/24/2024 8:55 PM EST [facility] Blood Venous blood specimen / Unknown Venipuncture / Unknown 03/24/2024 8:43 PM EST 03/24/2024 8:46 PM EST Todd Roth DO LAB BLOOD ORDERABLES [facility] [address] [place] [address], * (ABNORMAL) Basic metabolic panel (03/24/2024 8:43 PM EST) Sodium 139 133 - 145 mmol/L LAB CHEMISTRY METHOD 03/24/2024 9:17 PM [facility] Potassium 4.0 3.5 - 5.5 mmol/L LAB CHEMISTRY METHOD 03/24/2024 9:17 PM [facility] Comment:Hemolysis present Chloride 108 96 - 110 mmol/L LAB CHEMISTRY METHOD 03/24/2024 9:17 PM [facility] CO2 22 21 - 32 mmol/L LAB CHEMISTRY METHOD 03/24/2024 9:17 PM [facility] Anion Gap 9 3 - 11 LAB CHEMISTRY METHOD 03/24/2024 9:17 PM [facility] Glucose 173(H) 70 - 100 mg/dL LAB CHEMISTRY METHOD 03/24/2024 9:17 PM [facility] BUN 20 5 - 25 mg/dL LAB CHEMISTRY METHOD 03/24/2024 9:17 PM [facility] Creatinine 0.83 0.50 - 1.10 mg/dL LAB CHEMISTRY METHOD 03/24/2024 9:17 PM [facility] eGFR 85 >=60 mL/min/1. 73m2 LAB CHEMISTRY METHOD 03/24/2024 9:17 PM [facility] Comment:Calculation based on the??Chronic Kidney Disease Epidemiology Collaboration (CKD-EPI) equation refit??without adjustment for race. BUN/Creatinine Ratio 24.1 LAB CHEMISTRY METHOD 03/24/2024 9:17 PM [facility] Calcium 9.0 8.5 - 10.5 mg/dL LAB CHEMISTRY METHOD 03/24/2024 9:17 PM [facility] Blood Venous blood specimen / Unknown Venipuncture / Unknown 03/24/2024 8:43 PM EST 03/24/2024 8:46 PM EST Tae Hyong Ira DO LAB BLOOD ORDERABLES [facility] [place] ([facility] LAB [address] [place] [address], from Last 3 Months Advance Directives * Full Code - Confirmed (Latest Code Status on File) Date Activated Date Inactivated Comments 03/25/2024 12:22 PM 03/28/2024 5:47 PM This code status was ascertained in the following way: Code status discussion: discussion with patient To update the patient's code status, place a code status order. Do not modify or discontinue any currently active code status orders. * Full Code - Confirmed Date Activated Date Inactivated Comments 03/25/2024 12:22 PM 03/25/2024 12:22 PM This code status was ascertained in the following way: Code status discussion: discussion with patient To update the patient's code status, place a code status order. Do not modify or discontinue any currently active code status orders. * Full Code - Default Date Activated Date Inactivated Comments 03/25/2024 9:25 AM 03/25/2024 12:22 PM This is ord er is used when code status has not been discussed with the patient, or code status is otherwise unknown/unconfirmed To update the patient's code status, place a code status order. Do not modify or discontinue any currently active code status orders. Care Teams Group Underwriter Relationship Specialty Start Date End Date Kerri Otto MD [address] [facility] [place] [address] PCP - General Internal Medicine 09/12/20
== END 2024-06-20 16:20 | disposition home or self-care (01) ==
PROVIDERS: PCP Internal Medicine; Visit Provider Hospitalist
DX: R91.1 Solitary pulmonary nodule (principal); J45.41 Moderate persistent asthma with (acute) exacerbation; G47.33 Obstructive sleep apnea (adult) (pediatric)
CPT/HCPCS: 99214

== ENCOUNTER 2024-09-07 09:29 | Outpatient (REF) | payer BC, SELFPAY ==
--- OUTSIDE RECORDS SUMMARY | 2024-09-07 11:06 | XMS_ITS | Clinical Summary ---
Author Organization [facility] Address [address] [place] [address] Phone Care Team Providers Care Landscape Artist Name Role Phone Kerri Otto MD Primary Care Provider [phone] Allergies No known active allergies Medications acetaminophen [...] History Surgery Date Site/Laterality Comments CHOLECYSTECTOMY PROCEDURE: [place] LAPAROSCOPY SURG CHOLECYSTECTOMY HERNIA REPAIR PROCEDURE: DE REPAIR FIRST ABDOMINAL WALL HERNIA SECTION PROCEDURE: DE DELIVERY ONLY OTHER SURGICAL HISTORY PROCEDURE: CONTRACEPT IUD OTHER SURGICAL HISTORY 02/02/2024 Left PROCEDURE: [place] MEDIASTINOSCOPY INCLUDES MEDIASTINAL MASS BIOPSY; COMMENT: Posterior [...] patient's age to complete this topic Insurance [facility] Advance Directives * Full Code - Confirmed [...] currently active code status orders. Care Teams Landscape Artist Relationship Specialty Start Date End Date Kerri Otto MD [address] [place] [address] PCP - General Internal Medicine 09/12/20
--- OUTSIDE RECORDS SUMMARY | 2024-09-07 11:06 | XMS_ITS | Encounter Summary ---
Author Organization [facility] Address [address] [place] [address] Care Team Providers Care Freight Service Inspector Name Role Phone Kerri Otto MD Primary Care Provider [phone] Encounter Details Date Type Department Care Team (Late st Contact Info) Description 02/24/2024 2:19 PM EDT Hospital Encounter TH HISTORIC ENCOUNTERS EASTERN CONVERSION ONLY Beverly Rojas, BRO [address] [place] [address] [place] [address] Benign neoplasm of mediastinum Social History Tobacco [...] PM EDT Narrative 02/25/2024 8:03 AM EDT [facility] Diagnostic Imaging Department [address] [place] [id number] Patient: ??THEROUX,TIARA ?/Age/Sex: 1970 - Unit#: ??[id number] ? Location/Status: ??SPDIGEN/REG CLI ? Mnemonic/Ordering Site: ??CHESTXR/SPDI Ordering Physician: ??BEVERLY ROJAS PA-C DR Chest Routine 2 Views - 02/24/24 - 3973 Report Status:Signed HISTORY: The patient is a [...] are clear. Improved depth of inspiration. Code 00582 Dictating Physician: ??MOR GOODE MD Electronically Signed by: ??MOR GOODE MD Dic Date/Time: ??02/25/24 0757 Sign date/Time: ??02/25/24 0803 Procedure Note Mor Goode MD - 03/15/2024 [facility] Diagnostic Imaging Department [address] [place] [address] Patient: TIARA CURIEL /Age/Sex: 1970 - 53 - F Unit#: [id number] Location/Status: SPDIGEN/REG CLI Mnemonic/Ordering Site: CHESTXR/SPDI Ordering [...] lungs are clear.Improved depth of inspiration. Code 77687 Dictating Physician: MOR GOODE MD Electronically Signed [...] documented as of this encounter Care Teams Freight Service Inspector Relationship Specialty Start Date End Date Kerri Otto MD [address] [place] [phone] PCP - General Internal Medicine 09/12/20 documented as of this encounter
[2024-09-07 13:09] LABS: MANUAL DIFF FLAG NO
[2024-09-07 13:46] LABS: Basophils Percent Auto 0.5 % (0-2); Eosinophils Absolute Auto 0.3 X10*3/uL (0.0-0.4); Eosinophils Percent Auto 5.6 % (0-4); Hemoglobin 13.2 g/dl (12.0-16.0); Imm Gran Abs Auto 0.01 X10*3/uL (0.00-0.03); Imm Gran Pct Auto 0.2 % (0.0-0.4); Lymphocytes Absolute Auto 1.9 X10*3/uL (1.2-4.9); Lymphocytes Percent Auto 31.2 % (20-40); Mean Corpuscular Hemoglobin 30.8 pg (27.0-33.0); Mean Corpuscular Volume 93.2 fL (80.0-98.0); Mean Platelet Volume 9.9 fL (9.4-12.3); Monocytes Absolute Auto 0.5 X10*3/uL (0.1-1.2); Monocytes Percent Auto 8.5 % (2-11); Neutrophils Absolute Auto 3.3 x10*3/uL (2.0-8.3); Platelet Count 361 X10*3/uL (160-400); Red Blood Count 4.29 X10*6/uL (4.20-5.50); Red Cell Distribution Width 11.9 % (11.0-16.0); White Blood Count 6.1 X10*3/uL (4.8-10.8)
[2024-09-07 14:08] LABS: Alanine Aminotransferase 24 U/L (0-31); Albumin Level 3.9 g/dL (3.5-5.0); Alkaline Phosphatase 69 U/L (39-117); Anion Gap 11 (12-20); Aspartate Amino Transferase 24 U/L (5-31); Bilirubin Total 0.3 mg/dL (0.0-1.0); Blood Urea Nitrogen 15 mg/dL (9-16); Calcium 9.5 mg/dL (8.4-10.2); Carbon Dioxide 26 mmol/L (22-29); Chloride 105 mmol/L (96-108); Estimated Glomerular Filt Rate > 60; Glucose Random 112 mg/dL (60-115); Potassium 3.7 mmol/L (3.3-5.1); Sodium 138 mmol/L (135-145)
[2024-09-07 14:09] LABS: TSH reflex Free T4 0.65 uIU/mL (0.32-4.0)
[2024-09-07 14:12] LABS: Vitamin B12 919 pg/mL (200-900)
[2024-09-08 07:29] LABS: LDL Cholesterol Direct 92 mg/dL (<100)
[2024-09-11 13:18] LABS: Vitamin D 25-OH, D2 <4 ng/mL; Vitamin D 25-OH, D3 39 ng/mL; Vitamin D 25-OH, Total 39 ng/mL (30-100)
== END 2024-09-07 09:30 | disposition home or self-care (01) ==
LOC: HO.HMGCLDS 09:29
PROVIDERS: PCP Internal Medicine; Visit Provider Internal Medicine
DX: M54.12 Radiculopathy, cervical region (principal); I10 Essential (primary) hypertension; G44.89 Other headache syndrome; E03.8 Other specified hypothyroidism; E66.01 Morbid (severe) obesity due to excess calories; J45.40 Moderate persistent asthma, uncomplicated; M48.02 Spinal stenosis, cervical region; Z79.899 Other long term (current) drug therapy; Z91.09 Other allergy status, other than to drugs and biological substances
CPT/HCPCS: 36415; 80053; 82306; 82607; 83721; 84443; 85025; 96127

== ENCOUNTER 2024-09-07 09:29 | Outpatient (AMB) | payer BC, SELFPAY ==
[2024-09-07 09:34] VITALS: BP 118/80; PULSE 71; RESP 18; O2SAT 95; BMI 44.1
--- NOTE | 2024-09-07 09:34 | A.OFFPC_ITS ---
Vital Signs 09/07/24 09:34 Height 5 ft 2 in Weight 241 lb 6 oz BMI 44.1 BP 118/80 Blood Pressure Location Rt brachial Position Sitting Respiration 18 Pulse 71 Pulse Source Pulse Oximeter Pulse Oximetry (%) 95 Oxygen Delivery Method Room Air Intake Visit Reasons: Referral Req Allergies environmental allergies Allergy (Unknown, Uncoded 09/07/24 09:36) unknown From Cymbalta Allergy (Unknown, Uncoded 09/07/24 09:36) RASH tress, pollen,mold, dust,pet d Allergy (Unknown, Uncoded 09/07/24 09:36) Unknown Medication List - Last Reconciled 09/07/24 by Kerri Otto MD albuterol sulfate 5 mg inhalation Q4H PRN albuterol sulfate 90 mcg/actuation 1 inh inhalation QID PRN 30 days albuterol sulfate 2.5 mg (3 mL) inhalation QID 30 days atenolol 50 mg PO DAILY bisacodyl (Dulcolax (bisacodyl)) 20 mg (4 x 5 mg) PO ONCE 1 day budesonide-formoterol 160-4.5 mcg/actuation (Symbicort) 2 puffs inhalation BID 30 days cetirizine (Zyrtec) 10 mg PO DAILY PRN levothyroxine 175 mcg PO DAILY meclizine 25 mg PO TID PRN montelukast 10 mg PO DAILY 90 days nebulizers As directed ondansetron HCl 4 mg PO Q8H sumatriptan succinate 25 mg PO Q2-4H PRN 90 days Tobacco use date assessed: 09/07/24 Dental Screening Dental Screen Date: 09/07/24 Did you have a dental visit in the last 12 months?: Yes Did you have a dental problem in the last 6 months where you did not have access to dental care?: No Was dental information given to patient?: Patient has dentist HPI Referral Req HPI Details History - The patient is a 54-year-old female pr esenting with complications post- cervical spine surgery and worsening migraines. - The patient reports a pop in her neck while attempting to lift a heavy bag approximately three weeks ago at a volleyball tournament, causing burning pain down the left side from neck to shoulder and arm, resulting in numbness. - The cervical spine surgery was perform ed by Dr. Nicole approximately four years ago for disc issues. Following the pop, she has experienced persistent numbness, raising concern for possible surgical complications or hardware shift. - Headaches have been worsening, current ly occurring at least every other day, with increased frequency in the past three weeks, sometimes necessitating the use of sumatriptan twice daily. - The patient history includes a total t hyroidectomy for thyroid cancer with removal of approximately 20 lymph nodes and subsequent radiation therapy. She expresses concern over the thyroid hormone dosage as it may be contributing to her fatigue. - She reports ongoing fatigue despite ad equate sleep, suspecting suboptimal thyroid hormone levels given the last labs were drawn over a year ago. Thyroid management through [facility] [place] - The patient has been prescribed medica tions for asthma management, - having difficulty losing weight BMI is 44.1 - blood pressure is stable patient is on atenolol 50 mg - allergies stable with Zyrtec and monte lukast Medications - Albuterol for asthma management - Atenolol 50 mg for chronic migraine pr ophylaxis - Symbicort inhaler for asthma managemen t - Cetirizine for allergic rhinitis - Levothyroxine 175 mcg for hypothyroidi sm post-thyroidectomy - Meclizine as needed for dizziness - Montelukast for asthma and allergic rh initis - Sumatriptan for acute migraine relief Problem List - Cervical Spine Surgery Complication - Postoperative Pain - Hypothyroidism post-thyroidectomy - Thyroid Cancer - Migraines - Asthma - Allergic Rhinitis - Dizziness - morbid obesity Diagnostic results - Labs: Previous labs in April showed normal CBC and metabolic profile including kidney function. - Recent labs: Pending results from [facility] for thyroid function. [place] of Care The patient is under the care of an manager investment in [place] for management of thyroid cancer. Follow-up with Dr. Nicole, the neurosurgeon, is scheduled for cervical spine assess ment after imaging. Patient Instructions - Attend the appointment with Dr. Nicole the neurosurgeon today for cervical spine assessment. - Undergo X-ray imaging as pre-arranged prior to neurosurgical evaluation. - Proceed to the next door facility for the ordered labs. - Continue current medications as prescr ibed. - Monitor for any new symptoms or worsen ing of current symptoms and report concerns promptly. - Discuss the possibility of weight xiomara gement medications after addressing acute neurological issues. Review of Systems General: No fever no chills neurological: No headaches no dizziness ear nose throat: No sore throat no hearing difficulty no ear pain cardiovascular: No syncope, no chest pain, no palpitations gastrointestinal: No nausea vomiting or diarrhea endocrine: No polyuria polydipsia no heat intolerance genitourinary: No dysuria skin: No new complaints Physical Exam general: No acute distress HEENT: No acute findings neck: Supple, but patient reports burning sensation and numbness down the left side from neck into shoulder and arm respiratory system: Able to talk in full sentences, no audible wheeze no stridor cardiovascular: S1-S2 RRR gastrointestinal: No pain extremities: No new findings SOCIAL SERVICE LIAISON: Alert awake oriented x3 motor sensory intact, blade boner equal bilateral skin: Normal turgor PFSH Medical History Vitamin D deficiency Multinodular thyroid Hypothyroidism Surgical History Hx of cervical discectomy Hx of umbilical hernia repair Hx of cholecystectomy Hx of section Family History Mother Hypertension Father Hypertension High cholesterol Sister Thyroid cancer Social History Housing: House Alcohol intake: current Alcohol intake frequency: holidays/special occasions only Patient Tobacco Use Status: Never used Tobacco e-Cigarette/Vaping Use: Never Used Second Hand Smoke Exposure: No service: No Current occupational status: employed Cognitive needs: No Hearing needs: No Vision needs: Yes Questionnaire PHQ-9 Over the last 2 weeks, how often have you been bothered by any of the following problems? 1. Little interest or pleasure in doing things: not at all 2. Feeling down, depressed, or hopeless: not at all 3. Trouble falling or staying asleep, or sleeping too much: nearly every day 4. Feeling tired or having little energy: nearly every day 5. Poor appetite or overeating: not at all 6. Feeling bad about yourself - or that you are a failure or have let yourself or your family down: not at all 7. Trouble concentrating on things, such as reading the newspaper or watching television: not at all 8. Moving or speaking so slowly that other people could have noticed. Or the opposite - being so fidgety or restless that you have been moving around a lot more than usual: not at all 9. Thoughts that you would be better off or of hurting yourself in some way: not at all Total score: 6 Depression Screening Interpretation: Negative Depression Screening Done: Yes 83059 - PHQ-9 Billing: Yes Source: Developed by Drs. Don Moncada, Shaliin Gutierrez, Hamlet Gordillo and colleagues, with an educational pratibha from [employer]. Thrive Questionnaire Date Thrive assessed: 09/07/24 I am a: Patient What is your living situation today?: I have a steady place to live Within the past 12 months, did the food you bought not last and you didn't have the money to get more?: Never true Within the past 12 months, did you worry whether your food would run out before you got money to buy more?: Never true Do you have trouble paying for medicines?: No Do you have trouble getting transportation to medical appointments?: No Do you have trouble paying your heating and electricity bill?: No Do you have trouble taking care of your child, family member or friend?: No Do you have trouble with day-to-day activities such as bathing, preparing meals, shopping, managing finances, etc.?: No Are you currently unemployed and looking for a job?: No Are you interested in more education?: No Please select the resources that you would like help with: None Currently or been in a relationship where the following occur: No concerns reported THRIVE Score: 0 AUDIT C Alcohol Use Questionnaire (AUDIT-C) 1. How often do you have a drink containing alcohol?: Never 3. How often do you have six or more drinks on one occasion?: Never Total Score: 0 Score Reviewed/Action Taken: Yes NALDO-7 AMB Questionnaire NALDO-7 Date NALDO - 7 assessed: 09/07/24 Feeling nervous, anxious, or on edge: 0 = Not at all Not being able to stop or control worryin = Not at all Worrying too much about different things: 0 = Not at all Trouble relaxin = Not at all Being so restless that it is hard to sit still: 0 = Not at all Becoming easily annoyed or irritable: 0 = Not at all Feeling afraid as if something awful might happen: 0 = Not at all Total NALDO-7 score (0-4 normal; 5-9 mild; 10-14 moderate; 15-21 severe): 0 Source: Developed by Drs. Don Moncada, Shalini Gutierrez, Hamlet Gordillo and colleagues, with an educational pratibha from [employer]. NALDO-7 Assessment Billing NALDO-7 Assessment Tool: NALDO-7 Assessment 81502 Physical exam (Primary Care) Vital Signs: Last Vital Signs Pulse 71 09/07/24 09:34 Resp 18 09/07/24 09:34 BP 118/80 09/07/24 09:34 Pulse Ox 95 09/07/24 09:34 Oxygen Delivery Method Room Air 09/07/24 09:34 BMI result Body Mass Index 44.1 Tobacco/Smoking Status: Tobacco use Status Tobacco use date assessed 09/07/24 09/07/24 09:37 Patient Tobacco Use Status Never used Tobacco 09/07/24 09:37 e-Cigarette/Vaping Use Never Used 09/07/24 09:37 PHQ-9: PHQ-9 Score PHQ-9: Total score 6 09/07/24 09:46 Depression Screening Interpretation: Negative Thrive Assessment: Date of Thrive Assessment Date Thrive assessed 09/07/24 09/07/24 09:37 Currently or been in a relationship where the following occur: No concerns reported Coding Level of Care Code Est Pt Level 5 (45632) Diagnoses Radiculitis of left cervical region M54.12 Hypertension, essential I10 Headache syndrome G44.89 Environmental allergies Z91.09 Other specified hypothyroidism E03.8 Morbid obesity due to excess calories E66.01 H/O cervical spine surgery Z98.890 Moderate persistent asthma without complication J45.40 Asthma complication type: uncomplicated Additional Codes NALDO-7 Assessment Billing - NALDO-7 Assessment Tool: NALDO-7 Assessment 46229 ([id number]) PHQ-9 - 11021 - PHQ-9 Billing: Yes ([id number]) Time Spent (min) 41 Assessment & Plan Assessment & Plan (1) Radiculitis of left cervical region: Code(s): M54.12 - Radiculopathy, cervical region Category: Medical (2) Hypertension, essential: Code(s): I10 - Essential (primary) hypertension Category: Medical (3) Headache syndrome: Code(s): G44.89 - Other headache syndrome Category: Medical (4) Environmental allergies: Code(s): Z91.09 - Other allergy status, other than to drugs and biological substances Category: Medical (5) Other specified hypothyroidism: Code(s): E03.8 - Other specified hypothyroidism Category: Medical (6) Morbid obesity due to excess calories: Code(s): E66.01 - Morbid (severe) obesity due to excess calories Category: Medical (7) H/O cervical spine surgery: Code(s): Z98.890 - Other specified postprocedural states Category: Surgical (8) Asthma, moderate persistent: Code(s): J45.40 - Moderate persistent asthma, uncomplicated Category: Medical Qualifiers: Asthma complication type: uncomplicated Qualified Code(s): J45.40 - Moderate persistent asthma, uncomplicated Plan History - The patient is a 54-year-old female presenting with complications post- cervical spine surgery and worsening migraines. - The patient reports a pop in her neck while attempting to lift a heavy bag approximately three weeks ago at a volleyball tournament, causing burning pain down the left side from neck to shoulder and arm, resulting in numbness. - The cervical spine surgery was performed by Dr. Nicole approximately four years ago for disc issues. Following the pop, she has experienced persistent numbness, raising concern for possible surgical complications or hardware shift. - Headaches have been worsening, currently occurring at least every other day, with increased frequency in the past three weeks, sometimes necessitating the use of sumatriptan twice daily. - The patient history includes a total thyroidectomy for thyroid cancer with removal of approximately 20 lymph nodes and subsequent radiation therapy. She expresses concern over the thyroid hormone dosage as it may be contributing to her fatigue. - She reports ongoing fatigue despite adequate sleep, suspecting suboptimal thyroid hormone levels given the last labs were drawn over a year ago. Thyroid management through [facility] [place] - The patient has been prescribed medications for asthma management, - having difficulty losing weight BMI is 44.1 - blood pressure is stable patient is on atenolol 50 mg - allergies stable with Zyrtec and montelukast Medications - Albuterol for asthma management - Atenolol 50 mg for chronic migraine prophylaxis - Symbicort inhaler for asthma management - Cetirizine for allergic rhinitis - Levothyroxine 175 mcg for hypothyroidism post-thyroidectomy - Meclizine as needed for dizziness - Montelukast for asthma and allergic rhinitis - Sumatriptan for acute migraine relief Problem List - Cervical Spine Surgery Complication - Postoperative Pain - Hypothyroidism post-thyroidectomy - Thyroid Cancer - Migraines - Asthma - Allergic Rhinitis - Dizziness - morbid obesity Diagnostic results - Labs: Previous labs in April showed normal CBC and metabolic profile including kidney function. - Recent labs: Pending results from [facility] for thyroid function. [place] of Care The patient is under the care of an manager investment in [place] for management of thyroid cancer. Follow-up with Dr. Nicole, the neurosurgeon, is scheduled for cervical spine assessment after imaging. Patient Instructions - Attend the appointment with Dr. Nicole the neurosurgeon today for cervical spine assessment. - Undergo X-ray imaging as pre-arranged prior to neurosurgical evaluation. - Proceed to the next door facility for the ordered labs. - Continue current medications as prescribed. - Monitor for any new symptoms or worsening of current symptoms and report concerns promptly. - Discuss the possibility of weight management medications after addressing acute neurological issues. Orders: Orders Complete Blood Count Auto Diff Today E03.8 - Other specified hypothyroidism, E66.01 - Morbid (severe) obesity due to excess calories, G44.89 - Other headache syndrome, I10 - Essential (primary) hypertension, M48.02 - Spinal stenosis, cervical region, M54.12 - Radiculopathy, cervical region, Z91.09 - Other allergy status, other than to drugs and biological substances Comprehensive Met. Panel Today E03.8 - Other specified hypothyroidism, E66.01 - Morbid (severe) obesity due to excess calories, G44.89 - Other headache syndrome, I10 - Essential (primary) hypertension, M48.02 - Spinal stenosis, cervical region, M54.12 - Radiculopathy, cervical region, Z91.09 - Other allergy status, other than to drugs and biological substances LDL Cholesterol Direct Today E03.8 - Other specified hypothyroidism, E66.01 - Morbid (severe) obesity due to excess calories, G44.89 - Other headache syndrome, I10 - Essential (primary) hypertension, M48.02 - Spinal stenosis, cervical region, M54.12 - Radiculopathy, cervical region, Z91.09 - Other allergy status, other than to drugs and biological substances TSH reflex Free T4 Today E03.8 - Other specified hypothyroidism, E66.01 - Morb id (severe) obesity due to excess calories, G44.89 - Other headache syndrome, I10 - Essential (primary) hypertension, M48.02 - Spinal stenosis, cervical region, M54.12 - Radiculopathy, cervical region, Z91.09 - Other allergy status, other than to drugs and biological substances Vitamin B12 Today E03.8 - Other specified hypothyroidism, E66.01 - Morbid (severe) obesity due to excess calories, G44.89 - Other headache syndrome, I10 - Essential (primary) hypertension, M48.02 - Spinal stenosis, cervical region, M54.12 - Radiculopathy, cervical region, Z91.09 - Other allergy status, other than to drugs and biological substances Vitamin D 25-OH (D2 and D3) Today E03.8 - Other specified hypothyroidism, E66.01 - Morbid (severe) obesity due to excess calories, G44.89 - Other headache syndrome, I10 - Essential (primary) hypertension, M48.02 - Spinal stenosis, cervical region, M54.12 - Radiculopathy, cervical region, Z91.09 - Other allergy status, other than to drugs and biological substances Referrals Neurosurgery Referral M54.12 - Radiculopathy, cervical region
--- OUTSIDE RECORDS SUMMARY | 2024-09-07 10:33 | XMS_ITS | Clinical Summary ---
Author Organization [facility] Address [address] [place] [address] Phone Care Team Providers Care [employer] Name Role Phone Kerri Otto MD Primary Care Provider [phone] Allergies No known active allergies Medications acetaminophen (TYLENOL) 325 mg tablet Take 3 tablets (975 mg total) by mouth every 6 hours. 4 Active albuterol HFA (PROAIR HFA ; PROVENTIL HFA ; VENTOLIN HFA) 90 mcg/actuation inhaler Inhale 1 puff by mouth every 4 (four) hours if needed for wheezing or shortness of breath. 4 Active atenoloL (TENORMIN) 50 mg tablet Take 1 tablet (50 mg total) by mouth daily. 2 Active Breyna 160-4.5 mcg/actuation inhaler 4 Active cetirizine (ZyrTEC) 10 mg tablet Take 1 tablet (10 mg total) by mouth 1 (one) time each day. 9 Active cholecalciferol (VITAMIN D-3) 50 mcg (2,000 unit) tablet Take 1 tablet (2,000 Units total) by mouth 1 (one) time each day. Active cyanocobalamin (VITAMIN B-12) 1,000 mcg tablet Take 1 tablet (1,000 mcg total) by mouth daily. Active docusate sodium (COLACE) 100 mg capsule Take 1 capsule (100 mg total) by mouth 2 times daily. 4 Active levothyroxine (SYNTHROID, LEVOTHROID) 175 mcg tablet Take 1 tablet (175 mcg total) by mouth 1 (one) time each day before breakfast. 4 Active melatonin 10 mg capsule Take 1 capsule (10 mg total) by mouth at bedtime. Active montelukast (SINGULAIR) 10 mg tablet Take 1 tablet (10 mg total) by mouth daily. 2 Active multivitamin tablet Take 1 tablet by mouth daily. Active SUMAtriptan (IMITREX) 25 mg tablet Take 1 tablet (25 mg total) by mouth 1 (one) time each day if needed. 2 Active Active Problems Problem Noted Date Diagnosed Date COVID-19 03/28/2024 Vertigo, intermittent 03/26/2024 Surgical History Surgery Date Site/Laterality Comments CHOLECYSTECTOMY PROCEDURE: [place] LAPAROSCOPY SURG CHOLECYSTECTOMY HERNIA REPAIR PROCEDURE: [place] REPAIR FIRST ABDOMINAL WALL HERNIA SECTION PROCEDURE: [place] DELIVERY ONLY OTHER SURGICAL HISTORY PROCEDURE: CONTRACEPT IUD OTHER SURGICAL HISTORY 02/02/2024 Left PROCEDURE: [place] MEDIASTINOSCOPY INCLUDES MEDIASTINAL MASS BIOPSY; COMMENT: Posterior [...] on file Sexual Orientation Not on file Obstetrics History Last Filed [...] Last Done Comments Breast Cancer Screening 1970 Hepatitis B Vaccines (1 of 3 - 19+ 3-dose series) 1991 Pneumococcal Vaccine: 50+ Years (1 of 2 - PCV) 1991 Pneumococcal Vaccine: Pediatrics (0 to 5 Years) and At-Risk Patients (6 to 64 Years) (1 of 2 - PCV) 1991 Zoster Vaccines (1 of 2) 1991 Cervical Cancer Screening: Pap Smear 1993 Cholesterol Screening (Lipid Panel) 04/20/2022 Colorectal Cancer Screening: Colonoscopy 04/20/2022 Depression Screening 04/20/2022 HIV Screening 04/20/2022 Hepatitis C Screening 04/20/2022 Social Influencers of Health Screening 04/20/2022 COVID-19 Vaccine ( season) 2024 04/19/2021, 09/06/2020, 08/16/2020, Additional history exists Influenza Vaccine (Season Ended) 2025 01/28/2023, 05/27/2022, 02/04/2021, Additional history exists DTaP,Tdap,and Td [...] patient's age to complete this topic Meningococcal B Vaccine Aged Out No l onger eligible based on patient's age to complete this topic RSV Immunization Patients Under 20 months Aged Out No longer eligible based on patient's age to complete this topic Varicella Vaccines Aged Out No longer eligible based on patient's age to complete this topic Insurance [facility] Advance Directives * Full Code - Confirmed [...] currently active code status orders. Care Teams [employer] Relationship Specialty Start Date End Date Kerri Otto MD [address] [place] [address] PCP - General Internal Medicine 09/12/20
--- OUTSIDE RECORDS SUMMARY | 2024-09-07 10:33 | XMS_ITS | Encounter Summary ---
Author Organization [facility] Address [address] [place] [address] Care Team Providers Care Professor Of Religious Studies Name Role Phone Kerri Otto MD Primary Care Provider [phone] Encounter Details Date Type Department Care Team (Late st Contact Info) Description 02/24/2024 2:19 PM EDT Hospital Encounter TH HISTORIC ENCOUNTERS EASTERN CONVERSION ONLY Beverly Rojas, BRO [address] [place] [address] Benign neoplasm of mediastinum Social History Tobacco [...] PM EDT Narrative 02/25/2024 8:03 AM EDT [facility] Diagnostic Imaging Department [address] [place] [address] Patient: ??THEROUX,TIARA ?/Age/Sex: 1970 - Unit#: ??[id number] ? Location/Status: ??SPDIGEN/REG CLI ? Mnemonic/Ordering Site: ??CHESTXR/SPDI Ordering Physician: ??BEVERLY ROJAS PA-C DR Chest Routine 2 Views - 02/24/24 - 4703 Report Status:Signed HISTORY: The patient is a [...] are clear. Improved depth of inspiration. Code 42900 Dictating Physician: ??MOR GOODE MD Electronically Signed by: ??MOR GOODE MD Dic Date/Time: ??02/25/24 0757 Sign date/Time: ??02/25/24 0803 Procedure Note Mor Goode MD - 03/15/2024 [facility] Diagnostic Imaging Department [address] [place] [address] Patient: TIARA CURIEL /Age/Sex: 1970 - 53 - F Unit#: [id number] Location/Status: SPDIGEN/REG CLI Mnemonic/Ordering Site: CHESTXR/SPDI Ordering Physician: BEVERLY ROJAS PA-C DR Chest Routine 2 Views - 02/24/24 - 1433 Report Status:Signed HISTORY: The patient is a [...] lungs are clear.Improved depth of inspiration. Code 77179 Dictating Physician: MOR GOODE MD Electronically Signed [...] documented as of this encounter Care Teams Professor Of Religious Studies Relationship Specialty Start Date End Date Kerri Otto MD [address] [place] [id number] PCP - General Internal Medicine 09/12/20 documented as of this encounter
== END 2024-09-07 09:48 | disposition home or self-care (01) ==
LOC: HO.HMCC 09:30
PROVIDERS: PCP Internal Medicine; Visit Provider Internal Medicine
DX: M54.12 Radiculopathy, cervical region (principal); I10 Essential (primary) hypertension; E66.01 Morbid (severe) obesity due to excess calories; Z68.41 Body mass index [BMI] 40.0-44.9, adult; G44.89 Other headache syndrome; Z91.09 Other allergy status, other than to drugs and biological substances; E03.8 Other specified hypothyroidism; Z98.890 Other specified postprocedural states; J45.40 Moderate persistent asthma, uncomplicated

== ENCOUNTER 2024-12-02 12:29 | Outpatient (AMB) | payer BC, SELFPAY ==
--- NOTE | 2024-12-02 12:31 | A.OFFPC_ITS ---
Vital Signs 12/02/24 12:32 Height 5 ft 2 in Weight 240 lb BMI 43.9 BP 124/84 Blood Pressure Location Rt brachial Position Sitting Respiration 16 Pulse 73 Pulse Oximetry (%) 97 Intake Visit Reasons: 3 months f/up Spanish Translator Required: No Accompanied by: Self / Same As Patient Allergies environmental allergies Allergy (Unknown, Uncoded 09/07/24 09:36) unknown tress, pollen,mold, dust,pet d Allergy (Unknown, Uncoded 09/07/24 09:36) Unknown Medication List - Last Reconciled 12/02/24 by Kerri Otto MD albuterol sulfate 5 mg inhalation Q4H PRN albuterol sulfate 90 mcg/actuation 1 inh inhalation QID PRN 30 days albuterol sulfate 2.5 mg (3 mL) inhalation QID 30 days atenolol 50 mg PO DAILY budesonide-formoterol 160-4.5 mcg/actuation (Symbicort) 2 puffs inhalation BID 30 days cetirizine (Zyrtec) 10 mg PO DAILY PRN levothyroxine 175 mcg PO DAILY meclizine 25 mg PO TID PRN montelukast 10 mg PO DAILY 90 days nebulizers As directed ondansetron HCl 4 mg PO Q8H sumatriptan succinate 25 mg PO Q2-4H PRN 90 days Tobacco use date assessed: 12/02/24 Dental Screening Dental Screen Date: 12/02/24 Did you have a dental visit in the last 12 months?: Yes Did you have a dental problem in the last 6 months where you did not have access to dental care?: No Was dental information given to patient?: Patient has dentist HPI 3 months f/up HPI Details History - The patient is a 54-year-old female pr esenting with weight management issues. - The patient reports engaging in physic al exercise three times per week, each session lasting about an hour, yet is experiencing difficulty with weight loss. - Despite efforts to reduce dessert inta ke and maintain a balanced diet, she remains at 240 pounds with a goal to lose 80 pounds. - She consumes approximately 2,500 calor ies daily, predominantly through a protein-rich diet including Premier protein drinks, chicken, and salads. - The patient denies consuming significa nt amounts of carbohydrates or unhealthy fats. - Reports feelings of exhaustion and poo r sleep quality, often waking two to three times a night to urinate. - There is no mention of new acute sympt oms since the last visit. - Asthma is reported to be stable with c urrent management. 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 Medications - Symbicort for asthma - Atenolol for hypertension - Zyrtec for allergies - Levothyroxine for hypothyroidism - Meclizine for dizziness - Montelukast for asthma - Sumatriptan for headaches Problem List - Asthma - Essential Hypertension - Hypothyroidism - Obesity - Headaches Diagnostic results - Labs: CBC normal, normal electrolytes, normal kidney function, normal random sugar, normal liver enzymes; elevated B12 levels attributed to supplements; normal Vitamin D levels, normal thyroid function. Patient Instructions - Reduce caloric intake to 2,200 daily t o lose weight - Increase exercise frequency to four ti mes weekly - Limit Premier protein drinks and focus on whole foods - Learn to calculate calorie intake usin g a kitchen scale - Continue vitamin and mineral intake fr om fruits and vegetables - Monitor protein consumption and adjust according to calorie allowances labs needed in Feb before visit order is in fasting Review of Systems General: No fever no chills neurological: No headaches no dizziness ear nose throat: No sore throat no hearing difficulty no ear pain cardiovascular: No syncope, no chest pain, no palpitations gastrointestinal: No nausea vomiting or diarrhea endocrine: No polyuria polydipsia no heat intolerance genitourinary: No dysuria skin: No new complaints Physical Exam general: No acute distress HEENT: No acute findings neck: Supple respiratory system: Able to talk in full sentences, no audible wheeze no stridor cardiovascular: S1-S2 RRR gastrointestinal: No pain extremities: No new findings SELF DEFENSE INSTRUCTOR: Alert awake oriented x3 motor sensory intact skin: Normal turgor [facility] Medical History Vitamin D deficiency Multinodular thyroid Hypothyroidism Surgical History Hx of cervical discectomy Hx of umbilical hernia repair Hx of cholecystectomy Hx of section Family History Mother Hypertension Father Hypertension High cholesterol Sister Thyroid cancer Social History Housing: House Alcohol intake: current Alcohol intake frequency: holidays/special occasions only Patient Tobacco Use Status: Never used Tobacco e-Cigarette/Vaping Use: Never Used Second Hand Smoke Exposure: No service: No Current occupational status: employed Cognitive needs: No Hearing needs: No Vision needs: Yes Questionnaire PHQ-9 Over the last 2 weeks, how often have you been bothered by any of the following problems? 1. Little interest or pleasure in doing things: not at all 2. Feeling down, depressed, or hopeless: not at all 3. Trouble falling or staying asleep, or sleeping too much: more than half the days 4. Feeling tired or having little energy: more than half the days 5. Poor appetite or overeating: not at all 6. Feeling bad about yourself - or that you are a failure or have let yourself or your family down: not at all 7. Trouble concentrating on things, such as reading the newspaper or watching television: not at all 8. Moving or speaking so slowly that other people could have noticed. Or the opposite - being so fidgety or restless that you have been moving around a lot more than usual: not at all 9. Thoughts that you would be better off or of hurting yourself in some way: not at all Total score: 4 Depression Screening Interpretation: Negative Depression Screening Done: Yes 02665 - PHQ-9 Billing: Yes Source: Developed by Drs. Don Moncada, Shalini Gutierrez, Hamlet Gordillo and colleagues, with an educational pratibha from [employer]. Thrive Questionnaire Date Thrive assessed: 12/02/24 I am a: Patient What is your living situation today?: I have a steady place to live Within the past 12 months, did the food you bought not last and you didn't have the money to get more?: Never true Within the past 12 months, did you worry whether your food would run out before you got money to buy more?: Never true Do you have trouble paying for medicines?: No Do you have trouble getting transportation to medical appointments?: No Do you have trouble paying your heating and electricity bill?: No Do you have trouble taking care of your child, family member or friend?: No Do you have trouble with day-to-day activities such as bathing, preparing meals, shopping, managing finances, etc.?: No Are you currently unemployed and looking for a job?: No Are you interested in more education?: No Please select the resources that you would like help with: None Currently or been in a relationship where the following occur: No concerns reported THRIVE Score: 0 NALDO-7 AMB Questionnaire NALDO-7 Date NALDO - 7 assessed: 09/07/24 Feeling nervous, anxious, or on edge: 0 = Not at all Not being able to stop or control worryin = Not at all Worrying too much about different things: 0 = Not at all Trouble relaxin = Not at all Being so restless that it is hard to sit still: 0 = Not at all Becoming easily annoyed or irritable: 0 = Not at all Feeling afraid as if something awful might happen: 0 = Not at all Total NALDO-7 score (0-4 normal; 5-9 mild; 10-14 moderate; 15-21 severe): 0 Source: Developed by Drs. Don Moncada, Shalini Gutierrez, Hamlet Gordillo and colleagues, with an educational pratibha from [employer]. NALDO-7 Assessment Billing NALDO-7 Assessment Tool: NALDO-7 Assessment 47741 Physical exam (Primary Care) Vital Signs: Last Vital Signs Pulse 73 12/02/24 12:32 Resp 16 12/02/24 12:32 BP 124/84 12/02/24 12:32 Pulse Ox 97 12/02/24 12:32 BMI result Body Mass Index 43.9 Tobacco/Smoking Status: Tobacco use Status Tobacco use date assessed 12/02/24 12/02/24 12:39 Patient Tobacco Use Status Never used Tobacco 12/02/24 12:39 e-Cigarette/Vaping Use Never Used 12/02/24 12:39 PHQ-9: PHQ-9 Score PHQ-9: Total score 4 12/02/24 12:39 Depression Screening Interpretation: Negative Thrive Assessment: Date of Thrive Assessment Date Thrive assessed 12/02/24 12/02/24 12:39 Currently or been in a relationship where the following occur: No concerns reported Coding Level of Care Code Est Pt Level 4 (14086) Diagnoses Hypertension, essential I10 Moderate persistent asthma without complication J45.40 Asthma complication type: uncomplicated Other specified hypothyroidism E03.8 Headache syndrome G44.89 Vitamin D deficiency E55.9 Hiatal hernia K44.9 Obesity, morbid, BMI 40.0-49.9 E66.01 Additional Codes NALDO-7 Assessment Billing - NALDO-7 Assessment Tool: NALDO-7 Assessment 25611 ([id number]) PHQ-9 - 81664 - PHQ-9 Billing: Yes ([id number]) Assessment & Plan Assessment & Plan (1) Hypertension, essential: Code(s): I10 - Essential (primary) hypertension Category: Medical (2) Asthma, moderate persistent: Code(s): J45.40 - Moderate persistent asthma, uncomplicated Category: Medical Qualifiers: Asthma complication type: uncomplicated Qualified Code(s): J45.40 - Moderate persistent asthma, uncomplicated (3) Other specified hypothyroidism: Code(s): E03.8 - Other specified hypothyroidism Category: Medical (4) Headache syndrome: Code(s): G44.89 - Other headache syndrome Category: Medical (5) Vitamin D deficiency: Code(s): E55.9 - Vitamin D deficiency, unspecified Category: Medical (6) Hiatal hernia: Code(s): K44.9 - Diaphragmatic hernia without obstruction or gangrene Category: Medical (7) Obesity, morbid, BMI 40.0-49.9: Code(s): E66.01 - Morbid (severe) obesity due to excess calories Category: Medical Plan History - The patient is a 54-year-old female presenting with weight management issues. - The patient reports engaging in physical exercise three times per week, each session lasting about an hour, yet is experiencing difficulty with weight loss. - Despite efforts to reduce dessert intake and maintain a balanced diet, she remains at 240 pounds with a goal to lose 80 pounds. - She consumes approximately 2,500 calories daily, predominantly through a protein-rich diet including Premier protein drinks, chicken, and salads. - The patient denies consuming significant amounts of carbohydrates or unhealthy fats. - Reports feelings of exhaustion and poor sleep quality, often waking two to three times a night to urinate. - There is no mention of new acute symptoms since the last visit. - Asthma is reported to be stable with current management. Medical History: - Asthma - Hypothyroidism - Hypertension - Headaches - Previous removal of thyroid secondary to cancer Surgical History: - Thyroidectomy (complete removal of thyroid gland) Social History: - Employed full-time - Exercises three times a week with a family member - Reports calorie intake between 2,200 and 2,500 daily - Attempts to consume a low-carbohydrate diet, preferring protein-rich foods, minimal dessert, high fruit, and vegetable intake. Medications - Symbicort for asthma - Atenolol for hypertension - Zyrtec for allergies - Levothyroxine for hypothyroidism - Meclizine for dizziness - Montelukast for asthma - Sumatriptan for headaches Problem List - Asthma - Essential Hypertension - Hypothyroidism - Obesity - Headaches Diagnostic results - Labs: CBC normal, normal electrolytes, normal kidney function, normal random sugar, normal liver enzymes; elevated B12 levels attributed to supplements; normal Vitamin D levels, normal thyroid function. Patient Instructions - Reduce caloric intake to 2,200 daily to lose weight - Increase exercise frequency to four times weekly - Limit Premier protein drinks and focus on whole foods - Learn to calculate calorie intake using a kitchen scale - Continue vitamin and mineral intake from fruits and vegetables - Monitor protein consumption and adjust according to calorie allowances labs needed in Feb before visit order is in fasting Orders: Orders Complete Blood Count Auto Diff 3 Months E03.8 - Other specified hypothyroidism, E55.9 - Vitamin D deficiency, unspecified, E66.01 - Morbid (severe) obesity due to excess calories, G44.89 - Other headache syndrome, I10 - Essential (primary) hypertension, J45.40 - Moderate persistent asthma, uncomplicated, K44.9 - Diaph ragmatic hernia without obstruction or gangrene TSH reflex Free T4 3 Months E03.8 - Other specified hypothyroidism, E55.9 - Vitamin D deficiency, unspecified, E66.01 - Morbid (severe) obesity due to excess calories, G44.89 - Other headache syndrome, I10 - Essential (primary) hypertension, J45.40 - Moderate persistent asthma, uncomplicated, K44.9 - Diaphragmatic hernia without obstruction or gangrene Hemoglobin A1c 3 Months E03.8 - Other specified hypothyroidism, E55.9 - Vitamin D deficiency, unspecified, E66.01 - Morbid (severe) obesity due to excess calories, G44.89 - Other headache syndrome, I10 - Essential (primary) hypertension, J45.40 - Moderate persistent asthma, uncomplicated, K44.9 - Diaphragmatic hernia without obstruction or gangrene Comprehensive Edward. Panel Fast 3 Months E03.8 - Other specified hypothyroidism, E55.9 - Vitamin D deficiency, unspecified, E66.01 - Morbid (severe) obesity due to excess calories, G44.89 - Other headache syndrome, I10 - Essential (primary) hypertension, J45.40 - Moderate persistent asthma, uncomplicated, K44.9 - Diaphragmatic hernia without obstruction or gangrene Lipid Panel 3 Months E03.8 - Other specified hypothyroidism, E55.9 - Vitamin D deficiency, unspecified, E66.01 - Morbid (severe) obesity due to excess calories, G44.89 - Other headache syndrome, I10 - Essential (primary) hypertension, J45.40 - Moderate persistent asthma, uncomplicated, K44.9 - Diaphragmatic hernia without obstruction or gangrene Vitamin B12 3 Months E03.8 - Other specified hypothyroidism, E55.9 - Vitamin D deficiency, unspecified, E66.01 - Morbid (severe) obesity due to excess calories, G44.89 - Other headache syndrome, I10 - Essential (primary) hypertension, J45.40 - Moderate persistent asthma, uncomplicated, K44.9 - Diaphragmatic hernia without obstruction or gangrene
[2024-12-02 12:32] VITALS: BP 124/84; PULSE 73; RESP 16; O2SAT 97; BMI 43.9
--- OUTSIDE RECORDS SUMMARY | 2024-12-02 12:32 | XMS_ITS | Clinical Summary ---
Author Organization [facility] Address [address] [place] [address] Phone Care Team Providers Care Cellular Plastics Cutter Name Role Phone Kerri Otto MD Primary Care Provider [phone] Allergies No known active allergies Medications acetaminophen [...] History Surgery Date Site/Laterality Comments CHOLECYSTECTOMY PROCEDURE: [place] LAPAROSCOPY SURG CHOLECYSTECTOMY HERNIA REPAIR PROCEDURE: HI REPAIR FIRST ABDOMINAL WALL HERNIA SECTION PROCEDURE: HI DELIVERY ONLY OTHER SURGICAL HISTORY PROCEDURE: CONTRACEPT IUD OTHER SURGICAL HISTORY 02/02/2024 Left PROCEDURE: [place] MEDIASTINOSCOPY INCLUDES MEDIASTINAL MASS BIOPSY; COMMENT: Posterior [...] 72 03/28/2024 2:35 PM EST Temperature 37 C (98.6 F) 03/28/2024 2:35 PM EST Respiratory Rate 20 [...] Years (1 of 2 - PCV) 1991 Zoster Vaccines (1 of 2) 1991 Cervical Cancer Screening: Pap Smear 1993 Cholesterol Screening (Lipid Panel) 04/20/2022 Colorectal Cancer Screening: Colonoscopy 04/20/2022 Depression Screening 04/20/2022 HIV Screening 04/20/2022 Hepatitis C Screening 04/20/2022 Social Influencers of Health Screening 04/20/2022 COVID-19 Vaccine ( season) 2024 04/19/2021, 09/06/2020, 08/16/2020, Additional history exists Influenza Vaccine (#1) 2025 , 05/27/2022, 02/04/2021, Additional history exists DTaP,Tdap,and [...] patient's age to complete this topic Insurance [facility] Advance Directives * Full Code - [...] currently active code status orders. Care Teams Cellular Plastics Cutter Relationship Specialty Start Date End Date Kerri Otto MD [address] [place] [phone] PCP - General Internal Medicine 09/12/20
== END 2024-12-02 13:02 | disposition home or self-care (01) ==
LOC: HO.HMCC 12:30
PROVIDERS: PCP Internal Medicine; Visit Provider Internal Medicine
DX: I10 Essential (primary) hypertension (principal); J45.40 Moderate persistent asthma, uncomplicated; E66.01 Morbid (severe) obesity due to excess calories; Z68.41 Body mass index [BMI] 40.0-44.9, adult; E03.8 Other specified hypothyroidism; G44.89 Other headache syndrome; E55.9 Vitamin D deficiency, unspecified; K44.9 Diaphragmatic hernia without obstruction or gangrene

== ENCOUNTER → 2024-12-02 12:29 | Outpatient (BNVA) | payer BC, SELFPAY | PROVIDERS: PCP Internal Medicine; Visit Provider Internal Medicine | DX: I10 Essential (primary) hypertension (principal); J45.40 Moderate persistent asthma, uncomplicated; E03.8 Other specified hypothyroidism; G44.89 Other headache syndrome; E55.9 Vitamin D deficiency, unspecified; K44.9 Diaphragmatic hernia without obstruction or gangrene; E66.01 Morbid (severe) obesity due to excess calories; Z68.41 Body mass index [BMI] 40.0-44.9, adult; Z85.850 Personal history of malignant neoplasm of thyroid; Z79.899 Other long term (current) drug therapy; Z13.31 Encounter for screening for depression | CPT/HCPCS: 96127 ==

== ENCOUNTER 2025-02-04 10:01 | Outpatient (REF) | payer BC, SELFPAY ==
--- OUTSIDE RECORDS SUMMARY | 2024-02-24 14:19 | XMS_ITS | Encounter Summary ---
Author Organization [facility] Address [address] [place] [address] Care Team Providers Care Carriage Setter Name Role Phone Kerri Otto MD Primary Care Provider [phone] Encounter Details Date Type Department Care Team (Late st Contact Info) Description 02/24/2024 2:19 PM EDT Hospital Encounter TH HISTORIC ENCOUNTERS [facility] ONLY eBverly Rojas, PA [address] [place] [address] Benign neoplasm of mediastinum Social History Tobacco Use Types Packs/Day Years Used Date Smoking Tobacco: Never Smokeless Tobacco: Never Alcohol Use Standard Drinks/Week Comments Yes 0 (1 standard drink = 0.6 oz pur e alcohol) Interpersonal Safety Answer Date Record ed Physical Abuse 03/25/2024 Verbal Abuse 03/25/2024 Comments Unknown Sex and Gender Information Value Date Recorded Sex Assigned at Not on file Legal Sex Female 8:08 AM EST Gender Identity Not on file Sexual Orientation Not on file documented as of this encounter Plan of Treatment Not on file documented as of this encounter Procedures Procedure Name Priority Date/Time Associated Diagnosis Comments DR GARCIA ROUTINE 2 VIEWS Routine 02/25/2024 8:03 AM EDT Benign neoplasm of mediastinum documented in this encounter Results * DR GARCIA ROUTINE 2 VIEWS (02/25/2024 8:03 AM EDT) Anatomical Region Laterality Modality Radiographic Estefani ging 02/24/2024 2:24 PM EDT Narrative 02/25/2024 8:03 AM EDT [facility] Diagnostic Imaging Department [address] [place] [address] Patient: TIARA CURIEL /Age/Sex: 1970 53 - F Unit#: [id number] Location/Status: SPDIGEN/REG CLI Mnemonic/Ordering Site: CHESTXR/SPDI Ordering Physician: BEVERLY ROJAS PA-C DR Chest Routine 2 Views - 02/24/24 - 2653 Report Status:Signed HISTORY: The patient is a 53-year-old female. Information provided with prior studies indicates that the patient underwent resection of a mediastinal mass on 02/02/2024. The patient now presents for follow-up. FINDINGS: PA and lateral radiographs of the chest demonstrate improved depth of inspiration since the prior study performed 02/03/2024. The study again demonstrates anterior fixation hardware in the lower cervical spine as also seen on the prior examination. The large bore left side surgical chest tube is been removed since the prior study. The bony structures are of normal appearance. The cardiac and mediastinal contours are within normal limits. The lungs and costophrenic angles are clear. There is no pneumothorax. Cholecystectomy clips are noted. IMPRESSION: No pneumothorax following removal of large bore left side surgical chest tube since the prior study of 02/03/2024. The lungs are clear. Improved depth of inspiration. Code 46558 Dictating Physician: ROBERTO CARLOS GOODE MD Electronically Signed by: ROBERTO CARLOS GOODE MD Dic Date/Time: 02/25/24 0757 Sign date/Time: 02/25/24 0803 Procedure Note Roberto Carlos Goode MD - 03/15/2024 [facility] Diagnostic Imaging Department [address] [place] [address] Patient: TIARA CURIEL /Age/Sex: 1970 - 53 - F Unit#: [id number] Location/Status: SPDIGEN/REG CLI Mnemonic/Ordering Site: CHESTXR/SPDI Ordering Physician: BEVERLY ROJAS PA-C DR Chest Routine 2 Views - 02/24/24 - 9883 Report Status:Signed HISTORY: The patient is a 53-year-old female. Information provided withprior studies indicates that the patient underwent resection of a mediastinalmass on 02/02/2024. The patient now presents for follow-up. FINDINGS: PA and lateral radiographs of the chest demonstrate improveddepth of inspiration since the prior study performed 02/03/2024. The study again demonstrates anterior fixation hardware in the lower cervical spine asalso seen on the prior examination. The large bore left side surgical chest tube isbeen removed since the prior study. The bony structures are of normalappearance. The cardiac and mediastinal contours are within normal limits. The lungs and costophrenic angles are clear. There is no pneumothorax. Cholecystectomy clips are noted. IMPRESSION: No pneumothorax following removal of large bore left sidesurgical chest tube since the prior study of 02/03/2024. The lungs are clear.Improved depth of inspiration. Code 67344 Dictating Physician: ROBERTO CARLOS GOODE MD Electronically Signed by: ROBERTO CARLOS GOODE MD Dic Date/Time: 02/25/24 0757 Sign date/Time: 02/25/24 0803 Beverly [facility] IMG XR PROCEDURES Final Result documented in this encounter Visit Diagnoses Diagnosis Benign neoplasm of mediastinum documented in this encounter Additional Health Concerns Infection Onset Date Last Indicated Resolved Time Respiratory Rule-Out 03/25/2024 03/25/2024 024 3:20 AM EST COVID-19 Rule-Out 03/25/2024 03/25/2024 03/25/2024 3:20 AM EST COVID-19 03/25/2024 03/25/2024 04/24/2024 7:04 PM EST documented as of this encounter Care Teams Carriage Setter Relationship Specialty Start Date End Date Kerri tOto MD [address] [place] [phone] PCP - General Internal Medicine 09/12/20 documented as of this encounter
--- OUTSIDE RECORDS SUMMARY | 2025-02-04 10:03 | XMS_ITS | Clinical Summary ---
Author Organization [facility] Address [address] [place] [address] Phone Care Team Providers Care House Wirer Helper Name Role Phone Kerri Otto MD Primary Care Provider [phone] Allergies No known active allergies Medications acetaminophen [...] History Surgery Date Site/Laterality Comments CHOLECYSTECTOMY PROCEDURE: [place] LAPAROSCOPY SURG CHOLECYSTECTOMY HERNIA REPAIR PROCEDURE: [place] REPAIR FIRST ABDOMINAL WALL HERNIA SECTION PROCEDURE: [place] DELIVERY ONLY OTHER SURGICAL HISTORY PROCEDURE: CONTRACEPT IUD OTHER SURGICAL HISTORY 02/02/2024 Left PROCEDURE: [place] MEDIASTINOSCOPY INCLUDES MEDIASTINAL MASS BIOPSY; COMMENT: Posterior [...] Panel) 04/20/2022 Colorectal Cancer Screening: Colonoscopy 04/20/2022 HIV Screening 04/20/2022 Hepatitis C Screening 04/20/2022 Social Influencers of Health Screening 04/20/2022 Depression Screening 05/18/2024 COVID-19 Vaccine ( season) 2025 04/19/2021, 09/06/2020, 08/16/2020, Additional history exists Influenza [...] patient's age to complete this topic Insurance [facility] Advance Directives * Full Code - [...] currently active code status orders. Care Teams House Wirer Helper Relationship Specialty Start Date End Date Kerri Otto MD [address] [place] [phone] PCP - General Internal Medicine 09/12/20
== END 2025-02-04 10:02 | disposition home or self-care (01) ==
LOC: HO.MAMMO 10:01
PROVIDERS: Visit Provider Internal Medicine
DX: Z12.31 Encounter for screening mammogram for malignant neoplasm of breast (principal)
CPT/HCPCS: 77063; 77067

== ENCOUNTER → 2025-02-04 10:30 | Outpatient (BNV) | payer BC, SELFPAY | PROVIDERS: Visit Provider Internal Medicine | DX: Z12.31 Encounter for screening mammogram for malignant neoplasm of breast (principal) | CPT/HCPCS: 77063; 77067 ==

== ENCOUNTER 2025-03-01 08:04 | Outpatient (REF) | payer BC, SELFPAY ==
--- OUTSIDE RECORDS SUMMARY | 2024-02-24 14:19 | XMS_ITS | Encounter Summary ---
Author Organization [facility] Address [address] [place] [address] Care Team Providers Care Malt House Supervisor Name Role Phone Kerri Otto MD Primary Care Provider [phone] Encounter Details Date Type Department Care Team (Late st Contact Info) Description 02/24/2024 2:19 PM EDT Hospital Encounter TH HISTORIC ENCOUNTERS [facility] ONLY Beverly Rojas, PA [address] [facility] [address] [place] [address] Benign neoplasm of mediastinum Social History Tobacco Use Types Packs/Day Years Used Date Smoking Tobacco: Never Smokeless Tobacco: Never Alcohol Use Standard Drinks/Week Comments Yes 0 (1 standard drink = 0.6 oz pur e alcohol) Interpersonal Safety Answer Date Record ed Physical Abuse Unrecognized value 03/25/2024 Verbal Abuse Unrecognized value 03/25/2024 Comments Unknown Sex and Gender Information Value Date Recorded Sex Assigned at Not on file Legal Sex Female 8:08 AM EST Gender Identity Not on file Sexual Orientation Not on file documented as of this encounter Functional Status * Calculated C-SSRS Risk Score (Lifetime/Recent) Answer Date of Assessment Author No Risk Indicated 03/25/2024 3:27 PM Sarai Kennedy RN * Moore Suicide Severity Rating Scale (Screener/Recent Self-Report) Question Answer Date of Assessment Author 1. Wish to be (Past 1 Month) No 024 3:27 PM Sarai Kennedy RN 2. Non-Specific Active Suici johny Thoughts (Past 1 Month) No 03/25/2024 3:27 PM Ines Kennedy RN 6. Suicidal Behavior (Lifetime) No 3:27 PM Sarai Kennedy RN documented as of this encounter Plan of Treatment Not on file documented as of this encounter Procedures Procedure Name Priority Date/Time Associated Diagnosis Comments CHEST ROUTINE 2 VIEWS Routine 02/25/2024 8:03 AM EDT Benign neoplasm of mediastinum documented in this encounter Results * CHEST ROUTINE 2 VIEWS (02/25/2024 8:03 AM EDT) Anatomical Region Laterality Modality Radiographic Estefani ging 02/24/2024 2:24 PM EDT Narrative 02/25/2024 8:03 AM EDT [facility] Diagnostic Imaging Department [address] [place], [place] [id number] Patient: TIARA CURIEL /Age/Sex: 1970 - 53 - F Unit#: [id number] Location/Status: SPDIGEN/REG CLI Mnemonic/Ordering Site: CHESTXR/SPDI Ordering Physician: BEVERLY ROJAS PA-C Chest Routine 2 Views - 02/24/24 - 5643 Report Status:Signed HISTORY: The patient is a [...] are clear. Improved depth of inspiration. Code 45374 Dictating Physician: ROBERTO CARLOS GOODE MD Electronically Signed by: ROBERTO CARLOS GOODE MD Dic Date/Time: 02/25/24 0757 Sign date/Time: 02/25/2403 Procedure Note Roberto Carlos Goode MD - 03/15/2024 [facility] Diagnostic Imaging Department [address] [place] [address] Patient: TIARA CURIEL /Age/Sex: 1970 - 53 - F Unit#: [id number] Location/Status: SPDIGEN/REG CLI Mnemonic/Ordering Site: CHESTXR/SPDI Ordering Physician: BEVERLY ROJAS PA-C DR Chest Routine 2 Views - 02/24/24 - 2928 Report Status:Signed HISTORY: The patient is a [...] lungs are clear.Improved depth of inspiration. Code 91045 Dictating Physician: ROBERTO CARLOS GOODE MD Electronically [...] documented as of this encounter Care Teams Malt House Supervisor Relationship Specialty Start Date End Date Kerri Otto MD [address] [place] [phone] PCP - General Internal Medicine 09/12/20 documented as of this encounter
--- OUTSIDE RECORDS SUMMARY | 2025-03-01 08:18 | XMS_ITS | Clinical Summary ---
Author Organization [facility] Address [address] [place] [address] Phone Care Team Providers Care Registered Land Surveyor Name Role Phone Kerri Otto MD Primary Care Provider [phone] Allergies No known active allergies Medications acetaminophen [...] History Surgery Date Site/Laterality Comments CHOLECYSTECTOMY PROCEDURE: [place] LAPAROSCOPY SURG CHOLECYSTECTOMY HERNIA REPAIR PROCEDURE: [place] REPAIR FIRST ABDOMINAL WALL HERNIA SECTION PROCEDURE: [place] DELIVERY ONLY OTHER SURGICAL HISTORY PROCEDURE: CONTRACEPT IUD OTHER SURGICAL HISTORY 02/02/2024 Left PROCEDURE: [place] MEDIASTINOSCOPY INCLUDES MEDIASTINAL MASS BIOPSY; COMMENT: Posterior [...] Last Done Comments Breast Cancer Screening 1970 Colorectal Cancer Screening: Colonoscopy 1972 Hepatitis B Vaccines (1 of 3 - 19+ 3-dose series) 1991 Pneumococcal Vaccine: 50+ Years (1 of 2 - PCV) 1991 Zoster Vaccines (1 of 2) 1991 Cervical Cancer Screening: Pap Smear 1993 RSV Immunization Adult Patients (1 - Risk 50-74 years 1-dose series) 2022 Cholesterol Screening (Lipid Panel) 04/20/2022 HIV Screening 04/20/2022 Hepatitis C Screening [...] patient's age to complete this topic Insurance [facility] Advance Directives * Full Code - Confirmed [...] currently active code status orders. Care Teams Registered Land Surveyor Relationship Specialty Start Date End Date Kerri Otto MD [address] [facility] [place] [phone] PCP - General Internal Medicine 09/12/20
[2025-03-01 08:21] LABS: MANUAL DIFF FLAG NO
[2025-03-01 09:23] LABS: Hematocrit 40.8 % (37.0-47.0); Hemoglobin 13.4 g/dl (12.0-16.0); Imm Gran Abs Auto 0.04 X10*3/uL (0.00-0.03); Imm Gran Pct Auto 0.4 % (0.0-0.4); Lymphocytes Absolute Auto 2.9 X10*3/uL (1.2-4.9); Mean Corpuscular HGB Conc 32.8 g/dl (31.0-35.0); Mean Corpuscular Hemoglobin 30.2 pg (27.0-33.0); Mean Corpuscular Volume 91.9 fL (80.0-98.0); NRBC Abs Auto 0.000 X10*3/uL (0.0-0.012); NRBC Pct Auto 0.0 /100WBC (0.0-0.2); Platelet Count 310 X10*3/uL (160-400); Red Blood Count 4.44 X10*6/uL (4.20-5.50); White Blood Count 11.0 X10*3/uL (4.8-10.8)
[2025-03-01 09:39] LABS: Hemoglobin A1C 136.3113 umol/L
[2025-03-01 10:25] LABS: Alanine Aminotransferase 22 U/L (0-31); Albumin Level 4.1 g/dL (3.5-5.0); Alkaline Phosphatase 70 U/L (39-117); Anion Gap 12 (12-20); Aspartate Amino Transferase 22 U/L (5-31); Blood Urea Nitrogen 15 mg/dL (9-16); Calcium 9.5 mg/dL (8.4-10.2); Carbon Dioxide 27 mmol/L (22-29); Chloride 106 mmol/L (96-108); Cholesterol 164 mg/dL (<200); Estimated Glomerular Filt Rate > 60; HDL Cholesterol 43 mg/dL (>40); Potassium 4.2 mmol/L (3.3-5.1); Sodium 141 mmol/L (135-145); Total Protein 7.2 g/dL (6.5-8.0); Triglycerides 144 mg/dL (<150)
[2025-03-01 10:43] LABS: Vitamin B12 696 pg/mL (200-900)
== END 2025-03-01 08:05 | disposition home or self-care (01) ==
LOC: HO.LAB 08:04
PROVIDERS: Visit Provider Internal Medicine
DX: Z00.01 Encounter for general adult medical examination with abnormal findings (principal); I10 Essential (primary) hypertension; J45.40 Moderate persistent asthma, uncomplicated; K44.9 Diaphragmatic hernia without obstruction or gangrene; E03.8 Other specified hypothyroidism; E66.01 Morbid (severe) obesity due to excess calories; E55.9 Vitamin D deficiency, unspecified; G44.89 Other headache syndrome; Z91.09 Other allergy status, other than to drugs and biological substances; Z13.1 Encounter for screening for diabetes mellitus
CPT/HCPCS: 36415; 80053; 80061; 82607; 83036; 83721; 84443; 85025

== ENCOUNTER 2025-03-03 14:41 | Outpatient (AMB) | payer BC, SELFPAY ==
--- NOTE | 2025-03-03 14:43 | A.OFFPC_ITS ---
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: No Accompanied by: Self / Same As Patient Allergies environmental allergies Allergy (Unknown, Uncoded 09/07/24 09:36) unknown tress, pollen,mold, dust,pet d Allergy (Unknown, Uncoded 09/07/24 09:36) Unknown Medication List - Last Reconciled 03/03/25 by Kerri Otot MD albuterol sulfate 5 mg inhalation Q4H PRN albuterol sulfate 90 mcg/actuation 1 inh inhalation QID PRN 30 days albuterol sulfate 2.5 mg (3 mL) inhalation QID 30 days atenolol 50 mg PO DAILY 90 days budesonide-formoterol 160-4.5 mcg/actuation (Symbicort) 2 puffs inhalation BID 30 days cetirizine (Zyrtec) 10 mg PO DAILY PRN levothyroxine 175 mcg PO DAILY meclizine 25 mg PO TID PRN montelukast 10 mg PO DAILY 90 days nebulizers As directed sumatriptan succinate 25 mg PO Q2-4H PRN 90 days Tobacco use date assessed: 03/03/25 Dental Screening Dental Screen Date: 03/03/25 Did you have a dental visit in the last 12 months?: Yes Did you have a dental problem in the last 6 months where you did not have access to dental care?: No Was dental information given to patient?: Patient has dentist HPI PE HPI Details History of Present Illness The patient is a 54-year-old female presenting for a physical examination and evaluation of her chronic conditions, including concerns about obesity and exploring weight loss medication. Essential Hypertension: - The patient reports blood pressure man agement, currently taking medication at night. - Expresses belief that weight loss coul d improve blood pressure control. Asthma: - Managed with Symbicort. - No acute exacerbations discussed. Hypothyroidism: - Managed with levothyroxine 175 mg. - Dose confirmed during the visit. Obesity: - Patient is concerned about her inabili ty to lose weight despite lifestyle modifications. - Limited effectiveness of dietary storey es mentioned, including reducing pasta and pizza intake and increasing water consumption. - Interested in weight loss medication o ptions like Tirzepatide or Zipbound. - Acknowledges the potential risks and s thais effects of weight loss medications, including slow gastric emptying and the need for regular monitoring. Migraine: - Takes sumatriptan 25 mg as needed. - Recently noted an increase in migraine severity. - Reports related neck tightness and spa sms which exacerbate the condition. Sleep Apnea: - Diagnosed previously but deemed mild. Not using CPAP. - Associated with tiredness, possibly co ntributing to interrupted sleep patterns. Overactive Bladder: - Experiences frequent nocturnal urinati on impacting rest. - Discussed potential use of medication to manage symptoms during the visit. Dermatological Concerns: - History of attempting to address skin tags and moles. - Planning to transition care to [facility] due to issues with prior dermatological care. Social History: - Active in attempting to lose weight th rough diet and exercise, regularly goes to the gym - Reduced consumption of high-calorie fo ods, such as pasta and pizza - Experiences significant challenges wit h weight management Health Maintenance - Received flu vaccine recently - Received a COVID-19 vaccine recently - Mammogram completed in January rrent year - Colonoscopy completed a year ago - Discussion of potential thyroid and pa ncreatic monitoring with weight loss medications [place] [facility] - [facility] visited in 2021 and ak heduled for a follow-up - Problems with previous dermatology vis its, transitioning to [facility] Patient Instructions - Explore weight loss medication options with local pharmacies, printed prescription of Zepbound handed to patient - Continue trying to lose weight through diet and exercise - Contact [facility] for skin evaluations - Follow up on bladder control medicatio n VESIcare started -denies it in 2 mg sent for neck muscle spasms Follow-up 3 months or earlier for weight loss medication Review of Systems - General: No fever no chills - Neurological: No headaches no dizzin ess - Ear nose throat: No sore throat no hearing difficulty no ear pain - Cardiovascular: No syncope, no chest pain, no palpitations - Gastrointestinal: No nausea vomiting or diarrhea - Endocrine: No polyuria polydipsia no heat intolerance - Genitourinary: No dysuria - Skin: No new complaints Physical Exam General: Cooperative, healthy appearing, comfortable, no acute distress Orientation: Patient oriented x3 Head: Normal to inspection Ears: Within normal limit visually Nose: Normal external nose present Face and sinus: Normal facial exam Eyes: Appearance normal, extraocular movement intact pupils reactive Neck: Normal visual inspection and supple Respiratory: Normal respiratory effort and able to speak in complete sentences. Clear to auscultation, no stridor Cardiovascular: S1 and S2 RRR GI: Normal to inspection. Soft to palpation and nontender Skin: Turgor normal, no acute findings Neuro: Patient oriented x3, motor sensory intact, balance intact, tandem pass Extremities: Normal to inspection . [facility] Medical History Vitamin D deficiency Multinodular thyroid Hypothyroidism Surgical History Hx of cervical discectomy Hx of umbilical hernia repair Hx of cholecystectomy Hx of section Family History Mother Hypertension Father Hypertension High cholesterol Sister Thyroid cancer Social History Housing: House Alcohol intake: current Alcohol intake frequency: holidays/special occasions only Patient Tobacco Use Status: Never used Tobacco e-Cigarette/Vaping Use: Never Used Second Hand Smoke Exposure: No service: No Current occupational status: employed Cognitive needs: No Hearing needs: No Vision needs: Yes Questionnaire PHQ-9 Over the last 2 weeks, how often have you been bothered by any of the following problems? 1. Little interest or pleasure in doing things: not at all 2. Feeling down, depressed, or hopeless: not at all 3. Trouble falling or staying asleep, or sleeping too much: not at all 4. Feeling tired or having little energy: not at all 5. Poor appetite or overeating: not at all 6. Feeling bad about yourself - or that you are a failure or have let yourself or your family down: not at all 7. Trouble concentrating on things, such as reading the newspaper or watching television: not at all 8. Moving or speaking so slowly that other people could have noticed. Or the opposite - being so fidgety or restless that you have been moving around a lot more than usual: not at all 9. Thoughts that you would be better off or of hurting yourself in some way: not at all Total score: 0 Depression Screening Interpretation: Negative Depression Screening Done: Yes 01005 - PHQ-9 Billing: Yes Source: Developed by Drs. Don Moncada, Hamlet Connell and colleagues, with an educational pratibha from [email or web address]. Thrive Questionnaire Date Thrive assessed: 09/07/24 I am a: Patient What is your living situation today?: I have a steady place to live Within the past 12 months, did the food you bought not last and you didn't have the money to get more?: Never true Within the past 12 months, did you worry whether your food would run out before you got money to buy more?: Never true Do you have trouble paying for medicines?: No Do you have trouble getting transportation to medical appointments?: No Do you have trouble paying your heating and electricity bill?: No Do you have trouble taking care of your child, family member or friend?: No Do you have trouble with day-to-day activities such as bathing, preparing meals, shopping, managing finances, etc.?: No Are you currently unemployed and looking for a job?: No Are you interested in more education?: No Please select the resources that you would like help with: None Currently or been in a relationship where the following occur: No concerns reported THRIVE Score: 0 NALDO-7 AMB Questionnaire NALDO-7 Date NALDO - 7 assessed: 03/03/25 Feeling nervous, anxious, or on edge: 0 = Not at all Not being able to stop or control worryin = Not at all Worrying too much about different things: 0 = Not at all Trouble relaxin = Not at all Being so restless that it is hard to sit still: 0 = Not at all Becoming easily annoyed or irritable: 0 = Not at all Feeling afraid as if something awful might happen: 0 = Not at all Total NALDO-7 score (0-4 normal; 5-9 mild; 10-14 moderate; 15-21 severe): 0 Source: Developed by Drs. Don Moncada, Hamlet Connell and colleagues, with an educational pratibha from [email or web address]. NALDO-7 Assessment Billing NALDO-7 Assessment Tool: NALDO-7 Assessment 72586 Physical exam (Primary Care) Vital Signs: Last Vital Signs Pulse 69 03/03/25 14:44 Resp 16 03/03/25 14:44 BP 138/92 H 03/03/25 14:44 Pulse Ox 97 03/03/25 14:44 Oxygen Delivery Method Room Air 03/03/25 14:44 BMI result Body Mass Index 44.6 Tobacco/Smoking Status: Tobacco use Status Tobacco use date assessed 03/03/25 03/03/25 14:50 Patient Tobacco Use Status Never used Tobacco 03/03/25 14:50 e-Cigarette/Vaping Use Never Used 03/03/25 14:50 PHQ-9: PHQ-9 Score PHQ-9: Total score 0 03/03/25 15:09 Depression Screening Interpretation: Negative Thrive Assessment: Date of Thrive Assessment Date Thrive assessed 09/07/24 03/03/25 14:50 Currently or been in a relationship where the following occur: No concerns reported Coding Level of Care Code Est Pt Level 4 (21485) Est Pt Prev Care 40-64y(84318) Diagnoses Encounter for general adult medical examination with abnormal findings Z00.01 Nocturia R35.1 Hypertension, essential I10 Cervical paraspinal muscle spasm M62.838 Obesity, morbid, BMI 40.0-49.9 E66.01 SY (obstructive sleep apnea) G47.33 Moderate persistent asthma without complication J45.40 Asthma complication type: uncomplicated Screening for malignant neoplasm of skin Z12.83 Additional Codes NALDO-7 Assessment Billing - NALDO-7 Assessment Tool: NALDO-7 Assessment [id number] ([id number]) PHQ-9 - 80376 - PHQ-9 Billing: Yes ([id number]) Assessment & Plan Assessment & Plan (1) Encounter for general adult medical examination with abnormal findings: Code(s): Z00.01 - Encounter for general adult medical examination with abnormal findings Category: Medical (2) Nocturia: Code(s): R35.1 - Nocturia Category: Medical (3) Hypertension, essential: Code(s): I10 - Essential (primary) hypertension Category: Medical (4) Cervical paraspinal muscle spasm: Code(s): M62.838 - Other muscle spasm Category: Medical (5) Obesity, morbid, BMI 40.0-49.9: Code(s): E66.01 - Morbid (severe) obesity due to excess calories Category: Medical (6) SY (obstructive sleep apnea): Code(s): G47.33 - Obstructive sleep apnea (adult) (pediatric) Category: Medical (7) Asthma, moderate persistent: Code(s): J45.40 - Moderate persistent asthma, uncomplicated Category: Medical Qualifiers: Asthma complication type: uncomplicated Qualified Code(s): J45.40 - Moderate persistent asthma, uncomplicated (8) Screening for malignant neoplasm of skin: Code(s): Z12.83 - Encounter for screening for malignant neoplasm of skin Category: Medical Plan Essential Hypertension: - The patient reports blood pressure management, currently taking medication at night. - Expresses belief that weight loss could improve blood pressure control. Asthma: - Managed with Symbicort. - No acute exacerbations discussed. Hypothyroidism: - Managed with levothyroxine 175 mg. - Dose confirmed during the visit. Obesity: - Patient is concerned about her inability to lose weight despite lifestyle modifications. - Limited effectiveness of dietary changes mentioned, including reducing pasta and pizza intake and increasing water consumption. - Interested in weight loss medication options like Tirzepatide or Zipbound. - Acknowledges the potential risks and side effects of weight loss medications, including slow gastric emptying and the need for regular monitoring. Migraine: - Takes sumatriptan 25 mg as needed. - Recently noted an increase in migraine severity. - Reports related neck tightness and spasms which exacerbate the condition. Sleep Apnea: - Diagnosed previously but deemed mild. Not using CPAP. - Associated with tiredness, possibly contributing to interrupted sleep patterns. Overactive Bladder: - Experiences frequent nocturnal urination impacting rest. - Discussed potential use of medication to manage symptoms during the visit. Dermatological Concerns: - History of attempting to address skin tags and moles. - Planning to transition care to [facility] due to issues with prior dermatological care. Social History: - Active in attempting to lose weight through diet and exercise, regularly goes to the gym - Reduced consumption of high-calorie foods, such as pasta and pizza - Experiences significant challenges with weight management Health Maintenance - Received flu vaccine recently - Received a COVID-19 vaccine recently - Mammogram completed in January of current year - Colonoscopy completed a year ago - Discussion of potential thyroid and pancreatic monitoring with weight loss medications [place] [facility] - [facility] visited in 2021 and scheduled for a follow-up - Problems with previous dermatology visits, transitioning to [facility] Patient Instructions - Explore weight loss medication options with local pharmacies, printed prescription of Zepbound handed to patient - Continue trying to lose weight through diet and exercise - Contact [facility] for skin evaluations - Follow up on bladder control medication VESIcare started -denies it in 2 mg sent for neck muscle spasms Follow-up 3 months or earlier for weight loss medication Orders: Referrals Dermatology Referral Z12.83 - Encounter for screening for malignant neoplasm of skin Medications: New Zepbound (tirzepatide (weight loss)) for 4 weeks 2.5 mg (0.5 mL) subcut QWEEK 2 mL 0RF NS E66.01 - Morbid (severe) obesity due to excess calories, G47.33 - Obstructive sleep apnea (adult) (pediatric), I10 - Essential (primary) hypertension, J45.40 - Moderate persistent asthma, uncomplicated solifenacin (Vesicare) 5 mg PO DAILY 30 tabs 0RF tizanidine 2 mg PO BEDTIME PRN 30 caps 0RF muscle spasticity Refilled levothyroxine 175 mcg PO DAILY 90 tabs 0RF sumatriptan succinate do not exceed 8 doses per 24 hrs 25 mg PO Q2-4H PRN 30 tabs 0RF migraine headache 90 days
[2025-03-03 14:44] VITALS: BP 138/92; PULSE 69; RESP 16; O2SAT 97; BMI 44.6
== END 2025-03-03 15:13 | disposition home or self-care (01) ==
LOC: HO.HMCC 14:42
PROVIDERS: PCP Internal Medicine; Visit Provider Internal Medicine
DX: Z00.01 Encounter for general adult medical examination with abnormal findings (principal); R35.1 Nocturia; E66.01 Morbid (severe) obesity due to excess calories; Z68.41 Body mass index [BMI] 40.0-44.9, adult; I10 Essential (primary) hypertension; M62.838 Other muscle spasm; G47.33 Obstructive sleep apnea (adult) (pediatric); J45.40 Moderate persistent asthma, uncomplicated; Z12.83 Encounter for screening for malignant neoplasm of skin

== ENCOUNTER → 2025-03-03 14:41 | Outpatient (BNVA) | payer BC, SELFPAY | PROVIDERS: PCP Internal Medicine; Visit Provider Internal Medicine | DX: Z00.01 Encounter for general adult medical examination with abnormal findings (principal); I10 Essential (primary) hypertension; J45.909 Unspecified asthma, uncomplicated; E03.9 Hypothyroidism, unspecified; G43.909 Migraine, unspecified, not intractable, without status migrainosus; N32.81 Overactive bladder; R35.1 Nocturia; M62.838 Other muscle spasm; G47.33 Obstructive sleep apnea (adult) (pediatric); J45.40 Moderate persistent asthma, uncomplicated; E66.01 Morbid (severe) obesity due to excess calories; Z99.89 Dependence on other enabling machines and devices; Z68.41 Body mass index [BMI] 40.0-44.9, adult | CPT/HCPCS: 96127 ==